=== PATIENT | male | born 1955 | race African-American/Black ===

== ENCOUNTER 2016-03-15 15:03 | Inpatient (IN) ==
--- NOTE | 2016-03-15 16:41 | ED.PDOC ---
General ED Provider: Dr. ALEKSANDER LÓPEZ JR Chief Complaint: Back Pain Stated Complaint: EA-LEFT LOWER BACK PAIN. UNDER RIBS. PAIN INCREASES WITH BREATHING AND COUGH.[ End ]three four days ago 98.7 85 18 97% 137/84 7/10 FEELS THAT SYMPTOMS ARE RELATED TO ELIQUIS FOR BLOOD CLOTS. Time Seen by Physician: 16:37 Mode of Arrival: Walk-In Information Source: Patient Exam Limitations: No limitations [facility] and T[facility] Documentation Reviewed and Agree: No Review of Systems - Review Of Systems Constitutional: Reports: No symptoms Eyes: Reports: No symptoms Ears, Nose, Mouth, Throat: Reports: No symptoms Respiratory: Reports: No symptoms Cardiac: Reports: No symptoms GI: Reports: No symptoms : Reports: Frequency, Flank pain Musculoskeletal: Reports: Back pain Skin: Reports: No symptoms Neurological: Reports: No symptoms Endocrine: Reports: No symptoms Hematologic/Lymphatic: Reports: No symptoms All Other Systems: Other Past Medical History - Past Medical History Previously Healthy: No Endocrine: Reports: None Cardiovascular: Reports: OH, Hypertension, DVT (BILATERAL LEGS) Respiratory: Reports: PE (RIGHT LUNG ), Other (TB, ) Hematological: Reports: None Gastrointestinal: Reports: Pancreatitis (alcoholism) Genitourinary: Reports: None Neuro/Psych: Reports: Migraine Musculoskeletal: Reports: None Cancer: Reports: None Other Pertinent Past Medical History: right hand heart cath without stents blood clot filter - Surgical History General Surgical History: Reports: None, Heart Cath, Orthopedic (right hand ), Other (heart cath without stents, blood clot filter). Denies: Stent - Family History Family History: Reports: None - Social History Smoking Status: Current some day smoker Hx Substance Use: No Alcohol Screening: None - Immunizations Tetanus Shot up to Date: Yes Physical Exam - Physical Exam Appearance: Well-appearing, Thin Pain Distress: Moderate Eyes: MERCED, EOMI, Conjunctiva clear ENT: Ears normal, Nose normal, Oropharynx normal Neck: Supple Respiratory: Airway patent, Breath sounds equal, Respirations nonlabored, Rhonchi Cardiovascular: RRR, Pulses normal, No rub, No murmur GI/: Soft, Nontender, No masses, Bowel sounds normal, No Organomegaly Musculoskeletal: Normal strength, ROM intact, No edema, No calf tenderness Skin: Warm, Dry, Normal color Neurological: Sensation intact, Motor intact, Reflexes intact, Cranial nerves intact, Alert, Oriented Psychiatric: Affect appropriate, Mood appropriate Critical Care Note - Critical Care Note Total Time (mins): 0 Course - Course Hematology/Chemistry: 03/15/16 16:50 03/15/16 16:50 Orders, Labs, Meds: Lab Review 03/15/16 03/15/16 16:50 17:18 WBC 5.62 RBC 3.85 L Hgb 11.0 L Hct 33.5 L MCV 87.0 MCH 28.6 MCHC 32.8 RDW Coeff of Kristine 16.9 H Plt Count 251 Immature Gran % (Auto) 0.2 Neut % (Auto) 55.4 Lymph % (Auto) 30.6 [place] % (Auto) 11.7 H Eos % (Auto) 1.6 Baso % (Auto) 0.5 Immature Gran # (Auto) 0.0 Neut # 3.1 Lymph # 1.7 [place] # 0.7 Eos # 0.1 Baso # 0.0 PT 10.6 INR 1.03 APTT 22.3 L Sodium 139 Potassium 4.0 Chloride 107 Carbon Dioxide 21 Anion Gap 15.0 BUN 15 Creatinine 0.83 Estimated GFR (MDRD) 115.00 BUN/Creatinine Ratio 18.07 Glucose 88 Calcium 9.3 Total Bilirubin 0.55 AST 23 ALT 18 Alkaline Phosphatase 84 Total Protein 7.6 Albumin 3.9 Globulin 3.7 Albumin/Globulin Ratio 1.05 Amylase 1103 H* Lipase 3656 H* Urine Color Yellow Urine Clarity Clear Urine pH 6.0 Ur Specific [place] 1.015 Urine Protein Negative Urine Glucose (UA) Negative Urine Ketones Negative Urine Blood Negative Urine Nitrite Negative Urine Bilirubin Negative Urine Urobilinogen 0.2 Ur Leukocyte Esterase Negative Plasma/Serum Alcohol < 10.0 Orders Category Date Time Status ADMIT PATIENT INPATIENT .TO [facility] (NON-MONITORED ADMISSION 03/15/16 19: 58 Active BED) ACTIVITY .Up ad Shellie CARE 03/15/16 19:58 Active INTAKE & OUTPUT Q8HR CARE 03/15/16 19:58 Active VITAL SIGNS Q8HR CARE 03/15/16 19:58 Active NOTHING BY MOUTH DIETARY 03/15/16 Breakfast Ordered ED IV/MEDIPORT/POWERPORT .ONCE EMERGENCY 03/15/16 16:44 Active IV [ED IV/MEDIPORT/POWERPORT] .ONCE EMERGENCY 03/15/16 16:45 Active AMYLASE Stat LAB 03/15/16 16:50 Completed CBC W/ AUTO DIFF DAILY@0600 LAB 03/16/16 06:00 Ordered CBC W/ AUTO DIFF DAILY@0600 LAB 03/17/16 06:00 Ordered CBC W/ AUTO DIFF DAILY@0600 LAB 03/18/16 06:00 Ordered CBC W/ AUTO DIFF DAILY@0600 LAB 03/19/16 06:00 Ordered CBC W/ AUTO DIFF DAILY@0600 LAB 03/20/16 06:00 Ordered CBC W/ AUTO DIFF DAILY@0600 LAB 03/21/16 06:00 Ordered CBC W/ AUTO DIFF DAILY@0600 LAB 03/22/16 06:00 Ordered CBC W/ AUTO DIFF DAILY@0600 LAB 03/23/16 06:00 Ordered CBC W/ AUTO DIFF DAILY@0600 LAB 03/24/16 06:00 Ordered CBC W/ AUTO DIFF DAILY@0600 LAB 03/25/16 06:00 Ordered CBC W/ AUTO DIFF DAILY@0600 LAB 03/26/16 06:00 Ordered CBC W/ AUTO DIFF DAILY@0600 LAB 03/27/16 06:00 Ordered CBC W/ AUTO DIFF DAILY@0600 LAB 03/28/16 06:00 Ordered CBC W/ AUTO DIFF DAILY@0600 LAB 03/29/16 06:00 Ordered CBC W/ AUTO DIFF DAILY@0600 LAB 03/30/16 06:00 Ordered CBC W/ AUTO DIFF DAILY@0600 LAB 03/31/16 06:00 Ordered CBC W/ AUTO DIFF DAILY@0600 LAB 04/01/16 06:00 Ordered CBC W/ AUTO DIFF DAILY@0600 LAB 04/02/16 06:00 Ordered CBC W/ AUTO DIFF DAILY@0600 LAB 04/03/16 06:00 Ordered CBC W/ AUTO DIFF DAILY@0600 LAB 04/04/16 06:00 Ordered CBC W/ AUTO DIFF Stat LAB 03/15/16 16:50 Completed COMPREHENSIVE METABOLIC PANEL DAILY@0600 LAB 03/16/16 06:00 Ordered COMPREHENSIVE METABOLIC PANEL DAILY@0600 LAB 03/17/16 06:00 Ordered COMPREHENSIVE METABOLIC PANEL DAILY@0600 LAB 03/18/16 06:00 Ordered COMPREHENSIVE METABOLIC PANEL DAILY@0600 LAB 03/19/16 06:00 Ordered COMPREHENSIVE METABOLIC PANEL DAILY@0600 LAB 03/20/16 06:00 Ordered COMPREHENSIVE METABOLIC PANEL DAILY@0600 LAB 03/21/16 06:00 Ordered COMPREHENSIVE METABOLIC PANEL DAILY@0600 LAB 03/22/16 06:00 Ordered COMPREHENSIVE METABOLIC PANEL DAILY@0600 LAB 03/23/16 06:00 Ordered COMPREHENSIVE METABOLIC PANEL DAILY@0600 LAB 03/24/16 06:00 Ordered COMPREHENSIVE METABOLIC PANEL DAILY@0600 LAB 03/25/16 06:00 Ordered COMPREHENSIVE METABOLIC PANEL DAILY@0600 LAB 03/26/16 06:00 Ordered COMPREHENSIVE METABOLIC PANEL DAILY@0600 LAB 03/27/16 06:00 Ordered COMPREHENSIVE METABOLIC PANEL DAILY@0600 LAB 03/28/16 06:00 Ordered COMPREHENSIVE METABOLIC PANEL DAILY@0600 LAB 03/29/16 06:00 Ordered COMPREHENSIVE METABOLIC PANEL DAILY@0600 LAB 03/30/16 06:00 Ordered COMPREHENSIVE METABOLIC PANEL DAILY@0600 LAB 03/31/16 06:00 Ordered COMPREHENSIVE METABOLIC PANEL DAILY@0600 LAB 04/01/16 06:00 Ordered COMPREHENSIVE METABOLIC PANEL DAILY@0600 LAB 04/02/16 06:00 Ordered COMPREHENSIVE METABOLIC PANEL DAILY@0600 LAB 04/03/16 06:00 Ordered COMPREHENSIVE METABOLIC PANEL DAILY@0600 LAB 04/04/16 06:00 Ordered COMPREHENSIVE METABOLIC PANEL Stat LAB 03/15/16 16:50 Completed ETOH LEVEL [BLOOD ALCOHOL] Stat LAB 03/15/16 16:50 Completed LIPASE Stat LAB 03/15/16 16:50 Completed PARTIAL THROMBOPLASTIN TIME Stat LAB 03/15/16 16:50 Completed PT WITH INR Stat LAB 03/15/16 16:50 Completed UA [URINALYSIS C & S IF INDICATED] Stat LAB 03/15/16 17:18 Completed 0.9 % Sodium Chloride [Saline Flush] MEDS 03/15/16 16:44 Active 1 syr IVF PRN PRN Morphine Sulfate [Morphine 2 mg/ml Syringe] MEDS 03/15/16 20:02 Discontinued 2 mg IVP ONCE STA Morphine Sulfate [Morphine 2 mg/ml Syringe] MEDS 03/15/16 20:03 Ordered 2 mg IVP Q4H PRN Sodium Chloride 0.9% [Sodium Chloride] 1,000 ml MEDS 03/15/16 20:00 Ordered IV 100 mls/hr RESUSCITATION STATUS Routine OTHERS 03/15/16 19:[address] ABDOMEN/PELVIS WO CONTRAST Stat RADS 03/15/16 16:[address] CHEST W/O CONTRAST Stat RADS 03/15/16 18:48 Completed Medications Generic Name Dose Route Start Last Admin Trade Name Maynor PRN Reason Stop Dose Admin Apixaban 2.5 mg 03/15/16 21:00 Eliquis PO BID NELL Sodium Chloride 1,000 mls @ 100 mls/hr 03/15/16 20:00 03/15/16 20:15 Sodium Chloride IV 100 mls/hr .Q10H NELL Administration Azithromycin 500 mg/ Sodium 250 mls @ 125 mls/hr 03/15/16 20:30 Chloride IV DAILY NELL Ceftriaxone Sodium 1 gm/ 50 mls @ 75 mls/hr 03/15/16 20:30 Sodium Chloride IV DAILY NELL Ceftriaxone Sodium 1 gm/ 50 mls @ 75 mls/hr 03/15/16 20:26 03/15/16 20:32 Sodium Chloride IV 03/15/16 21:05 75 mls/hr ONCE STA Administration Lisinopril 10 mg 03/16/16 09:00 Zestril PO DAILY [facility] Metoprolol Succinate 25 mg 03/16/16 09:00 Toprol Xl PO DAILY [facility] Morphine Sulfate 2 mg 03/15/16 20:03 Morphine 2 Mg/Ml Syringe IVP Q4H PRN Severe Pain Nitroglycerin 0.4 mg 03/15/16 20:12 Nitrostat SL PRN PRN Chest Pain Non-Formulary Medication 20 mg 03/16/16 09:00 Omeprazole Magnesium [Prilosec] PO DAILY [facility] Sodium Chloride 1 syr 03/15/16 16:44 Saline Flush IVF PRN PRN To flush IV Tiotropium [place] cap 03/16/16 09:00 Spiriva IH DAILY [facility] Discontinued Medications Generic Name Dose Route Start Last Admin Trade Name Maynor PRN Reason Stop Dose Admin Morphine Sulfate 2 mg 03/15/16 20:02 03/15/16 20:20 Morphine 2 Mg/Ml Syringe IVP 03/15/16 20:03 2 mg ONCE STA Administration Vital Signs: Temp Pulse Resp BP Pulse Ox 03/15/16 15:06 98.7 F 85 18 137/84 97 Departure - Departure Time of Disposition: 20:49 Disposition: ADMITTED INPATIENT Discharge Problem: Pneumonia Acute pancreatitis Qualifiers: Pancreatitis type: alcohol induced Acute pancreatitis complication: no infection or necrosis Qualifier Code: (K85.20) Alcohol induced acute pancreatitis without necrosis or infection Condition: Stable Pt referred to PMD for follow-up: Yes Allergies/Adverse Reactions: Allergies Penicillins Adverse Reaction (Severe, Verified 03/15/16 15:15) Anaphylaxis swelling in throat moxifloxacin [From Avelox] Adverse Reaction (Intermediate, Verified 03/15/16 15: 15) Itching ITCHING AT IV SITE Penicillins Adverse Reaction (Severe, Uncoded 03/15/16 15:15) Anaphylaxis swelling in throat Home Medications: Ambulatory Orders Lisinopril 10 mg PO DAILY tab-cap 05/25/15 Tiotropium [place] [Spiriva] 18 mcg IH DAILY #30 av 05/25/15 Omeprazole Magnesium [Prilosec] 20 mg PO DAILY tab-cap 01/13/16 Apixaban [Eliquis] 2.5 mg PO BID #60 tab 02/14/16
[2016-03-15 16:56] LABS: BASOPHILS % (AUTO) 0.5 % (0.0-3.0); EOSINOPHILS # (AUTO) 0.1 K/ul (0.0-0.7); EOSINOPHILS % (AUTO) 1.6 % (0.0-7.0); HEMATOCRIT 33.5 % (42.0-52.0); IMMATURE GRANULOCYTE % (AUTO) 0.2 % (0.0-5.0); LYMPHOCYTES # (AUTO) 1.7 K/uL (0.60-3.4); LYMPHOCYTES % (AUTO) 30.6 (10.0-50.0); MEAN CORPUSCULAR HEMOGLOBIN 28.6 pg (27.0-31.0); MEAN CORPUSCULAR HGB CONC 32.8 (31.8-35.4); MONOCYTES # (AUTO) 0.7 K/uL (0.4-2.0); MONOCYTES % (AUTO) 11.7 (0-10); NEUTROPHILS # (AUTO) 3.1 K/ul (2.0-6.9); NEUTROPHILS % (AUTO) 55.4; PLATELET COUNT 251 10^3/uL (140-440); RED BLOOD COUNT 3.85 10^6/ul (4.70-6.10); WHITE BLOOD COUNT 5.62 K/ul (4.2-10.2)
[2016-03-15 17:23] LABS: ALBUMIN 3.9 g/dL (3.4-5.0); ALBUMIN/GLOBULIN RATIO 1.05; BILIRUBIN,TOTAL 0.55 mg/dL (0.00-1.20); BUN/CREATININE RATIO 18.07; CALCIUM 9.3 mg/dL (8.2-10.2); CREATININE 0.83 mg/dL (0.60-1.10); TOTAL PROTEIN 7.6 g/dL (6.4-8.2)
[2016-03-15 17:33] LABS: BILIRUBIN,URINE Negative (NEGATIVE); KETONES,URINE Negative (NEGATIVE); LEUKOCYTE ESTERASE ,URINE Negative (NEGATIVE); NITRITE,URINE Negative (NEGATIVE); PROTEIN,URINE Negative (NEGATIVE); URINE, BLOOD Negative (NEGATIVE)
[2016-03-15 17:43] LABS: ADD URINE MICROSCOPIC NO
--- NOTE | 2016-03-15 17:48 | CT ---
EXAM: Noncontrast CT examination of the abdomen and pelvis. Comparison: 01/14/2016. Reason for study: Left flank pain. FINDINGS: Patchy ground-glass and atelectasis is seen in the left lung base. The heart is not enla rged. Within the limitations of a noncontrast study, the liver, spleen, adrenal glands, and gallbladder ar e unremarkable. There is a similar appearing calcification in the pancreatic head. Unchanged IVC f ilter. No hydronephrosis, nephrolithiasis, or hydroureter. There are no radiopaque stones seen within the urinary bladder. No focal bowel dilatation or transition point. The appendix is not seen. The prostate is mildly pr ominent. The osseous structures are unremarkable. IMPRESSION: 1. No evidence of urolithiasis. 2. Patchy ground-glass in the left lung base may be early and early infectious or inflammatory proc ess. 3. No acute findings in the abdomen or pelvis.
[2016-03-15 19:01] LABS: PARTIAL THROMBOPLASTIN TIME 22.3 SEC (23.9-40.0); PROTHROMBIN TIME 10.6 SEC (9.3-11.0)
--- NOTE | 2016-03-15 19:32 | CT ---
Examination: Noncontrast CT imaging of the chest with axial, sagittal, and coronal reconstructed im aging with 3-D reformats. Comparison: 01/14/2016. Reason for study: Basilar changes in the left lung. FINDINGS: Left apical consolidation. Emphysematous changes are seen with an apical predominance. T here are new ground-glass and patchy consolidative changes in the left lower lobe best seen on axial images number 49, 50, and 51. Incidentally noted double aortic arch. Old granulomatous disease within the mediastinum and lung pa renchyma. Partially imaged left clavicle suggests prior injury with bony remodeling. Degenerative disease is seen within the thoracic spine with anterior osteophytosis. IMPRESSION: 1. New patchy left lower lobe inflammatory/infiltrative changes. 2. Stable left apical consolidation.
[2016-03-15] MEDS ORDERED: MORPHINE 2 MG/ML SYRINGE IVP STA (20:02)
[2016-03-15] MEDS ORDERED: MORPHINE 2 MG/ML SYRINGE IVP PRN (20:03)
[2016-03-15] MEDS ORDERED: NITROSTAT SL PRN (20:12)
[2016-03-15] MEDS: SODIUM CHLORIDE 1,000 ML IV SCH (20:15)
[2016-03-15] MEDS ORDERED: ROCEPHIN 1 GM in SODIUM CHLORIDE 50 ML IV STA (20:26)
[2016-03-15] MEDS ORDERED: ROCEPHIN ONE (20:28)
[2016-03-15] MEDS ORDERED: ROCEPHIN 1 GM in SODIUM CHLORIDE 50 ML IV SCH (20:30)
[2016-03-15] MEDS ORDERED: ZITHROMAX 500 MG in SODIUM CHLORIDE 250 ML IV SCH (20:30)
[2016-03-15] MEDS: ELIQUIS PO SCH (21:38)
[2016-03-16 05:39] LABS: BASOPHILS % (AUTO) 0.2 % (0.0-3.0); EOSINOPHILS # (AUTO) 0.1 K/ul (0.0-0.7); EOSINOPHILS % (AUTO) 1.9 % (0.0-7.0); HEMATOCRIT 31.8 % (42.0-52.0); HEMOGLOBIN 10.1 g/dl (14.0-18.0); IMMATURE GRANULOCYTE % (AUTO) 0.4 % (0.0-5.0); LYMPHOCYTES # (AUTO) 1.9 K/uL (0.60-3.4); LYMPHOCYTES % (AUTO) 41.2 (10.0-50.0); MEAN CORPUSCULAR HEMOGLOBIN 27.8 pg (27.0-31.0); MEAN CORPUSCULAR HGB CONC 31.8 (31.8-35.4); MEAN CORPUSCULAR VOLUME 87.6 fl (80.0-94.0); MONOCYTES # (AUTO) 0.6 K/uL (0.4-2.0); MONOCYTES % (AUTO) 12.2 (0-10); NEUTROPHILS # (AUTO) 2.1 K/ul (2.0-6.9); NEUTROPHILS % (AUTO) 44.1; PLATELET COUNT 249 10^3/uL (140-440); RED BLOOD COUNT 3.63 10^6/ul (4.70-6.10); WHITE BLOOD COUNT 4.68 K/ul (4.2-10.2)
[2016-03-16 06:00] LABS: ALBUMIN 3.5 g/dL (3.4-5.0); ANION GAP 11.6; BILIRUBIN,TOTAL 0.82 mg/dL (0.00-1.20); BUN/CREATININE RATIO 13.75; CALCIUM 8.7 mg/dL (8.2-10.2); CREATININE 0.8 mg/dL (0.60-1.10); POTASSIUM 3.6 mmol/L (3.5-5.1)
[2016-03-16] MEDS: SODIUM CHLORIDE 1,000 ML IV SCH ×2 (08:26→16:48)
[2016-03-16] MEDS: ELIQUIS PO SCH (08:58)
[2016-03-16] MEDS: SPIRIVA IH SCH (08:59)
[2016-03-16] MEDS: ZESTRIL PO SCH (08:59)
[2016-03-16] MEDS: TOPROL XL PO SCH (08:59)
[2016-03-16] MEDS ORDERED: OMEPRAZOLE MAGNESIUM 20 MG PO SCH (09:00)
[2016-03-16 09:07] LABS: AMYLASE 562 U/L (25-115); LIPASE 1541 U/L (8-78)
[2016-03-16] MEDS: INFUVITE ADULT 10 ML in D5%-1/2NS-KCL 20 MEQ/L IV SOL 1,000 ML IV SCH (10:25)
[2016-03-16] MEDS: COUMADIN PO SCH (16:51)
[2016-03-16] MEDS: ROCEPHIN 1 GM in SODIUM CHLORIDE 50 ML IV SCH (20:26)
[2016-03-16] MEDS: ZITHROMAX 500 MG in SODIUM CHLORIDE 250 ML IV SCH (21:24)
[2016-03-16] MEDS ORDERED: INFUVITE ADULT IV ONE (23:49)
[2016-03-17] MEDS: INFUVITE ADULT 10 ML in D5%-1/2NS-KCL 20 MEQ/L IV SOL 1,000 ML IV SCH ×2 (00:22→12:30)
[2016-03-17 05:30] LABS: AMYLASE 362 U/L (25-115)
[2016-03-17 05:32] LABS: PROTHROMBIN TIME 11.3 SEC (9.3-11.0)
[2016-03-17 05:33] LABS: LIPASE 781 U/L (8-78)
--- NOTE | 2016-03-17 09:03 | HP ---
CHIEF COMPLAINT: Pain left lower lateral chest wall. SOURCE OF HISTORY: Patient. HISTORY OF PRESENT ILLNESS: The patient, about three to four days prior to presentation to the emergency room, did experience pain in the left lower lateral chest wall aggravated by taking a deep breath and coughing. The problem had persisted and so he presented to the emergency room on 03/15/16. A work up was done at the emergency room consisting of CBC and chemistry, plus Amylase and Lipase. He also had a chest CT, as well as abdominal and pelvic CT without contrast. The patient's labs showed a elevated Amylase 1,103 and Lipase 3,656. Chest CT showed stable left apical consolidation and a new patchy consolidation left lower lobe. The patient was admitted with a diagnosis of left lower lobe pneumonitis and pancreatitis. This patient denied drinking any alcoholic beverages at all since I last saw him. PAST PERSONAL HISTORY: The patient claimed to have had a myocardial infarction in 1984 and had another subsequent UT while he was in [place]. History of blood clots in both legs in 1979. He had a cardiac catheterization in 1987. The patient had a pulmonary emboli about three years ago an umbrella was inserted in [place]. He had a left upper lobe consolidation and with cavitation , questionable tuberculosis. The patient was referred to a camera supervisor in [place] and decided that the problem was fungal rather than tubercular. The patient had been placed on antifungal medication. The patient is no longer taking the medication now. He also had a history of pneumonia in 2011. He had intestinal bleeding 2007 and history of pancreatitis in the past and also alcoholic use and abuse. He had a colonoscopy 2014. He had surgery to the right hand years ago from injury. This patient is still smoking, but denies drinking any alcohol although he used to consume alcohol every day. He also claims to have some anxiety episodes. FAMILY HISTORY: Denies any diseases in the family that are hereditary. He could not remember anything about illness in parents and relatives. SOCIAL HISTORY: The patient is and resides with his . He is unemployed. He smokes every day and denies any alcoholic use lately. This patient used to drink almost everyday. MEDICATIONS: Prior to this admission. Toprol XL 25 mg daily Spiriva one inhalation daily Lisinopril 10 mg daily Nitroglycerin 0.4 mg sublingually prn Omeprazole 20 mg daily Eliquis 2.5 mg twice a day ALLERGIES: Penicillin, Moxifloxacin. REVIEW OF SYSTEMS: CONSTITUTIONAL: The patient denied any fever or chills. He complains of some fatigue. 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 No ataxia. Had headaches before and workups were negative including a CT scan of the head. VISUAL: Denies any blurred vision, double vision or transient loss of vision. AUDITORY: Hearing is adequate. He denies any tinnitus, pain or drainage. RESPIRATORY: The patient has cough, probably from smoking and pain more on the left lower lateral chest upon taking deep breaths. No hemoptysis. History of consolidation, plus cavitation left upper lobe judged to be fungal by a camera supervisor. CARDIOVASCULAR: He denies any chest pain or chest oppression. GASTROINTESTINAL: The patient has nausea with eating. He had gained some weight , however compared to February 13, 2016. He is now 116 from 109. GENITOURINARY: Denies any pain, frequency or urgency of urination. MUSCULOSKELETAL: Pain in the left lateral chest wall aggravated by coughing and deep breathing. INTEGUMENT: Denies any rash or pruritus. ENDOCRINE: Negative. HEMATOLOGIC: Denies any prolonged bleeding episodes. PSYCHIATRIC: Affect is okay. PHYSICAL EXAMINATION: GENERAL: We have a 60 year old black male admitted to the hospital with pain in the left lower lateral chest wall with pneumonic process at the left lower base and markedly elevated serum Amylase and Lipase. VITAL SIGNS: Temperature 98.7, pulse rate 85, blood pressure 137/84, respiratory rate 18 and oxygen saturation at 97. HEAD: Unremarkable. FACE: Symmetrical and equal with no facial weakness and no remarkable tenderness to palpation in the frontal or maxillary sinus areas. EYES: Pupils equal/reactive to light about 3 mm in size. Conjunctivae somewhat pale. Sclerae not icteric. THROAT: No inflammation, no tumors or exudate. NECK: No masses. No bruit. No tenderness. No rigidity. CHEST: Essentially symmetrical and equal with good expansion with tenderness in the left lateral lower chest wall. No crepitus. LUNGS: Breath sounds are diminished in both sides with rales at the left lower base. No wheezing. HEART: Audible and regular with good tones. No murmurs. ABDOMEN: Flat, soft with no remarkable tenderness. No guarding. Bowel sounds are active. No masses palpable. EXTERNAL GENITALIA: Not examined. RECTAL: Not performed. The patient had colonoscopy 2014. LOWER EXTREMITIES: Essentially symmetrical and equal with no significant edema. Tibial pulses are present. UPPER EXTREMITIES: Symmetrical and equal. ASSESSMENT: 1. LEFT LOWER LOBE PNEUMONITIS 2. PANCREATITIS, CHRONIC WITH SUPERIMPOSED ACUTE 3. HISTORY OF PANSINUSITIS, IMPROVED 4. HISTORY OF DEEP VEIN THROMBOSIS YEARS AGO 5. HISTORY OF PULMONARY EMBOLI, PLUS DEEP VEIN THROMBOSIS TREATED WITH INFERIOR VENA CAVA UMBRELLA 6. HISTORY OF MYOCARDIAL INFARCTION TIMES TWO 7. HISTORY OF LEFT UPPER LOBE CONSOLIDATION, CAVITATION/FUNGAL 8. HISTORY OF CHRONIC TOBACCO USE AND ABUSE, PERSISTENT 9. HISTORY OF CHRONIC ALCOHOL USE, BUT DENIES USING IT LATELY 10. HISTORY OF NONCOMPLIANCE TO MEDICATION PROGNOSIS: Guarded. MTDD
--- NOTE | 2016-03-17 09:12 | PN ---
DATE OF VISIT: 03/16/16 The patient is alert and doing well, but still has pain in the left lower lateral chest wall. He does have some rales at the left base. The serum Amylase and Lipase has decreased from where it was yesterday. He still is NPO. VITAL SIGNS: 03/16/16 at 2 p.m., temperature 97.9, pulse 65, blood pressure 142 /86, respiratory rate 20, oxygen saturation 97 on room air. The CBC and CMP series was discontinued. Serum Amylase and Lipase is ordered for tomorrow. This patient is receiving Rocephin, as well as Azithromycin IV daily. He claims to still have problems with Eliquis and so the medication at 200 mg twice a day was discontinued and the patient is again placed on Warfarin. There is a question, however, whether this patient needs them since he had an umbrella that was inserted some three years ago. 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 We will do Doppler studies to see if he has any and if not his anticoagulant medication will be discontinued. MTDYuliya
[2016-03-17] MEDS: ZESTRIL PO SCH (09:20)
[2016-03-17] MEDS: TOPROL XL PO SCH (09:20)
[2016-03-17] MEDS: SPIRIVA IH SCH (09:25)
--- NOTE | 2016-03-17 10:06 | US ---
EXAM: Ultrasound venous Doppler bilateral lower extremity HISTORY: Bilateral leg pain COMPARISON: 01/18/2016 TECHNIQUE: Ultrasound venous Doppler bilateral lower extremity was performed FINDINGS: Right: There is partial flow and partial compressibility in the right profunda femoral vein and sup erficial femoral vein. There is normal compressibility and spontaneous flow in the right common fem oral, greater saphenous, popliteal, peroneal, posterior tibial and anterior tibial veins. Left: There is partial compressibility and partial spontaneous flow in the left common femoral, gre ater saphenous, superficial femoral, profunda femoral, popliteal, and peroneal veins and no spontane ous flow or compression in the left superficial femoral vein. Patient has chronic deep venous thromb us with portions appearing increased and/or new and representing acute on chronic venous thrombus. T here is spontaneous flow and compression of the left posterior tibial vein. Left anterior tibial ve in not visualized. IMPRESSION: 1. Right: Acute deep venous thrombus. 2. Left: Acute on chronic deep venous thrombus Critical findings called to patient nurse 10:00 a.m. 03/17/2016
--- NOTE | 2016-03-17 15:21 | CT ---
EXAM: CT of the chest. History: Chest pain. Comparison: Chest CT 03/15/2016 Technique: Multiplanar CT images through the thorax were obtained following administration of IV co ntrast. MIP images and 3-D reconstructions were also acquired. Findings: Heart size is normal. Double aortic arch again identified. No pericardial effusion. No pathologically enlarged axillary lymph nodes. No pathologically enlarged mediastinal or hilar lymp h nodes. No acute pulmonary emboli. The appearance of a small filling defect within the distal rig ht main pulmonary artery is felt to represent a branch point artifact. There is some narrowing of th e proximal left lower lobe pulmonary artery due to the mucus plugging. Emphysema again noted. Stable focal infiltrate or scarring within the left lung apex. No pneumoth orax. Diffuse bronchial wall thickening and left greater than right lower lobe mucous plugging. In creasing nodular infiltrate within the left lower lobe. Trace bilateral pleural effusions. Within the visualized upper abdomen, stable calcification within the pancreatic head region. Stable prominent pancreatic duct. No acute osseous abnormalities. Impression: 1. No acute pulmonary embolism. 2. Bilateral lower lobe mucous plugging has developed and there is worsening nodular left lower lob e lung infiltrate. 3. Trace bilateral pleural effusions. 4. Double aortic arch.
[2016-03-17] MEDS: MUCINEX PO SCH ×2 (17:22→20:34)
[2016-03-17] MEDS: COUMADIN PO SCH (17:22)
[2016-03-17] MEDS: ROCEPHIN 1 GM in SODIUM CHLORIDE 50 ML IV SCH (20:34)
[2016-03-17] MEDS: ZITHROMAX 500 MG in SODIUM CHLORIDE 250 ML IV SCH (21:38)
[2016-03-18] MEDS ORDERED: INFUVITE ADULT IV ONE (04:04)
[2016-03-18] MEDS: INFUVITE ADULT 10 ML in D5%-1/2NS-KCL 20 MEQ/L IV SOL 1,000 ML IV SCH ×3 (04:11→16:42)
[2016-03-18 06:47] LABS: PROTHROMBIN TIME 11.3 SEC (9.3-11.0)
[2016-03-18 07:39] LABS: BASOPHILS % (AUTO) 0.5 % (0.0-3.0); EOSINOPHILS # (AUTO) 0.1 K/ul (0.0-0.7); EOSINOPHILS % (AUTO) 2.6 % (0.0-7.0); HEMATOCRIT 30.9 % (42.0-52.0); HEMOGLOBIN 10.2 g/dl (14.0-18.0); LYMPHOCYTES # (AUTO) 1.4 K/uL (0.60-3.4); LYMPHOCYTES % (AUTO) 34.7 (10.0-50.0); MEAN CORPUSCULAR HEMOGLOBIN 28.8 pg (27.0-31.0); MEAN CORPUSCULAR VOLUME 87.3 fl (80.0-94.0); MONOCYTES # (AUTO) 0.5 K/uL (0.4-2.0); MONOCYTES % (AUTO) 13.6 (0-10); NEUTROPHILS # (AUTO) 1.9 K/ul (2.0-6.9); NEUTROPHILS % (AUTO) 48.6; PLATELET COUNT 229 10^3/uL (140-440); RED BLOOD COUNT 3.54 10^6/ul (4.70-6.10); WHITE BLOOD COUNT 3.89 K/ul (4.2-10.2)
[2016-03-18 07:59] LABS: ALBUMIN 3.5 g/dL (3.4-5.0); ALBUMIN/GLOBULIN RATIO 1.03; ANION GAP 11.7; BILIRUBIN,TOTAL 0.4 mg/dL (0.00-1.20); BUN/CREATININE RATIO 6.75; CREATININE 0.74 mg/dL (0.60-1.10); POTASSIUM 3.7 mmol/L (3.5-5.1); TOTAL PROTEIN 6.9 g/dL (6.4-8.2)
[2016-03-18] MEDS: TOPROL XL PO SCH (09:01)
[2016-03-18] MEDS: MUCINEX PO SCH ×2 (09:01→20:03)
[2016-03-18] MEDS: ZESTRIL PO SCH (09:02)
[2016-03-18] MEDS: SPIRIVA IH SCH (09:02)
[2016-03-18] MEDS: COUMADIN PO SCH (16:44)
[2016-03-18] MEDS: ROCEPHIN 1 GM in SODIUM CHLORIDE 50 ML IV SCH (20:01)
[2016-03-18] MEDS: ZITHROMAX 500 MG in SODIUM CHLORIDE 250 ML IV SCH (21:13)
[2016-03-19 05:06] LABS: PROTHROMBIN TIME 12.9 SEC (9.3-11.0)
[2016-03-19] MEDS: MUCINEX PO SCH ×2 (08:47→20:00)
[2016-03-19] MEDS: SPIRIVA IH SCH (08:48)
[2016-03-19] MEDS: TOPROL XL PO SCH (08:48)
[2016-03-19] MEDS: ZESTRIL PO SCH (08:48)
[2016-03-19 14:57] LABS: AMYLASE 351 U/L (25-115)
[2016-03-19 15:07] LABS: LIPASE 799 U/L (8-78)
[2016-03-19] MEDS: COUMADIN PO SCH (16:28)
[2016-03-19] MEDS: ROCEPHIN 1 GM in SODIUM CHLORIDE 50 ML IV SCH (20:01)
[2016-03-19] MEDS: ZITHROMAX 500 MG in SODIUM CHLORIDE 250 ML IV SCH (20:55)
[2016-03-20 05:30] LABS: PROTHROMBIN TIME 14.9 SEC (9.3-11.0)
[2016-03-20 05:41] LABS: ALBUMIN 3.5 g/dL (3.4-5.0); ALBUMIN/GLOBULIN RATIO 0.97; ANION GAP 13.6; BILIRUBIN,TOTAL 0.79 mg/dL (0.00-1.20); BUN/CREATININE RATIO 10.81; CALCIUM 9.2 mg/dL (8.2-10.2); CREATININE 0.74 mg/dL (0.60-1.10); POTASSIUM 3.6 mmol/L (3.5-5.1); TOTAL PROTEIN 7.1 g/dL (6.4-8.2)
--- NOTE | 2016-03-20 08:40 | PN ---
DATE OF VISIT: 03/19/16 SUBJECTIVE: The alert, responsive, not dyspneic or tachypneic. His also confirmed that he is not drinking any alcoholic beverages. His step-son also told me that he is not drinking. He is still smoking. I did talk to them because they were in the room with the patient. I did tell him that he does have pneumonia and also blood clot in the legs but not in the lungs. He had a filter inserted in [place] and he told me it was more than 20 years ago instead of 3-4 years ago. I need to ask for the records and I hope they are still available to at least make certain that indeed it was inserted and when. The patient's Serum Lipase had slightly elevated from 781 to 799 when he was given a regular diet. Diet was changed to low fat and full liquid diet instead of regular. The amylase had gone down further from the other day at 362 now 351. This will again be measure tomorrow. VITAL SIGNS: Temperature 97.9, pulse 97, blood pressure 134/93, respiratory rate 20, oxygen saturation 98% at room air. PLAN: This patient will be referred to Dr. Cespedes with regards to the recurrent pancreatitis. The pancreas does not show any calcifications with the CT Scan. This patient has a hypercoagulable state showing persistent or recurrent DVT's. It is probably necessary or advisable to continue him on Coumadin even if he does not get to therapeutic levels most of the time. IKERD
[2016-03-20] MEDS: SPIRIVA IH SCH (08:57)
[2016-03-20] MEDS: TOPROL XL PO SCH (08:58)
[2016-03-20] MEDS: MUCINEX PO SCH ×2 (08:58→20:43)
[2016-03-20] MEDS: ZESTRIL PO SCH (08:58)
--- NOTE | 2016-03-20 09:08 | PN ---
DATE OF VISIT: 03/17/16 SUBJECTIVE: The patient today is alert, feeling better. The patient's Doppler studies showed blood clots in both lower extremities. I did go back to the previous Dopplers and indeed he has blood clots mostly on the left side. He also had inferior vena cava filter inserted some time ago. The patient had pain in the left lateral chest with consolidation. A CT scan of the chest with contrast was then done to see whether this consolidation is a pulmonary emboli. A CTA was negative for pulmonary emboli. Bilateral lower lobe mucus plugging has developed and there is worsening nodular left lower lobe lung infiltrate. PLAN: The patient is given Mucinex 1200 mg twice a day and encouraged to drink as much liquid as he can and the IV will be continued to hydrate him. MTDD
[2016-03-20] MEDS: COUMADIN PO SCH (17:30)
[2016-03-20 19:08] LABS: CHLAMYDIA PNEUMONIAE IGG <1:16 (Neg:<1:16); CHLAMYDIA PNEUMONIAE IGM <1:10 (Neg:<1:10)
[2016-03-20] MEDS ORDERED: ROCEPHIN 1 GM in SODIUM CHLORIDE 100 ML IV SCH (21:00)
[2016-03-20] MEDS: ZITHROMAX 500 MG in SODIUM CHLORIDE 250 ML IV SCH (22:01)
[2016-03-21 04:53] LABS: PROTHROMBIN TIME 16.2 SEC (9.3-11.0)
[2016-03-21 05:08] LABS: AMYLASE 254 U/L (25-115); LIPASE 579 U/L (8-78)
[2016-03-21] MEDS: SPIRIVA IH SCH (08:01)
[2016-03-21] MEDS: MUCINEX PO SCH ×2 (08:02→20:11)
[2016-03-21] MEDS: ZESTRIL PO SCH (08:02)
[2016-03-21] MEDS: TOPROL XL PO SCH (08:02)
--- NOTE | 2016-03-21 17:01 | DI ---
EXAM: PA and lateral views of the chest HISTORY: Follow up pneumonia COMPARISON: CT chest 03/17/2016 FINDINGS: The cardiomediastinal silhouette is normal. There is no pneumothorax or pleural effusion . There is no consolidation, nodule or mass. The osseous structures are unremarkable. IMPRESSION: No acute cardiopulmonary process
[2016-03-21] MEDS: COUMADIN PO SCH (17:06)
[2016-03-21] MEDS ORDERED: ROCEPHIN 1 GM in SODIUM CHLORIDE 50 ML IV SCH (21:00)
[2016-03-22 05:07] LABS: BASOPHILS % (AUTO) 0.8 % (0.0-3.0); EOSINOPHILS # (AUTO) 0.2 K/ul (0.0-0.7); EOSINOPHILS % (AUTO) 3.2 % (0.0-7.0); HEMATOCRIT 32.2 % (42.0-52.0); HEMOGLOBIN 10.3 g/dl (14.0-18.0); IMMATURE GRANULOCYTE % (AUTO) 0.4 % (0.0-5.0); LYMPHOCYTES # (AUTO) 1.6 K/uL (0.60-3.4); LYMPHOCYTES % (AUTO) 33.3 (10.0-50.0); MEAN CORPUSCULAR HEMOGLOBIN 28.2 pg (27.0-31.0); MEAN CORPUSCULAR VOLUME 88.2 fl (80.0-94.0); MONOCYTES # (AUTO) 0.7 K/uL (0.4-2.0); MONOCYTES % (AUTO) 13.9 (0-10); NEUTROPHILS # (AUTO) 2.3 K/ul (2.0-6.9); NEUTROPHILS % (AUTO) 48.4; PLATELET COUNT 260 10^3/uL (140-440); RED BLOOD COUNT 3.65 10^6/ul (4.70-6.10); WHITE BLOOD COUNT 4.74 K/ul (4.2-10.2)
[2016-03-22 05:17] LABS: PROTHROMBIN TIME 16.9 SEC (9.3-11.0)
[2016-03-22 05:37] LABS: ALBUMIN 3.5 g/dL (3.4-5.0); ALBUMIN/GLOBULIN RATIO 0.95; ANION GAP 12.3; BILIRUBIN,TOTAL 0.16 mg/dL (0.00-1.20); CALCIUM 9.5 mg/dL (8.2-10.2); CREATININE 0.75 mg/dL (0.60-1.10); POTASSIUM 4.3 mmol/L (3.5-5.1); TOTAL PROTEIN 7.2 g/dL (6.4-8.2)
[2016-03-22] MEDS: SPIRIVA IH SCH (08:13)
[2016-03-22] MEDS: TOPROL XL PO SCH (08:13)
[2016-03-22] MEDS: ZESTRIL PO SCH (08:13)
[2016-03-22] MEDS: MUCINEX PO SCH (08:14)
--- NOTE | 2016-03-22 09:51 | PN ---
DATE OF VISIT: 03/21/16 SUBJECTIVE: The patient is alert, feeling well. He claimed that his appetite is good and denies any headache or any chest pain. He also does not have any shortness of breath and no pain in either leg. The pain in the left lateral chest is much less. OBJECTIVE: LUNGS: Lungs sounds are coarse, breath sounds on both sides; sounds like a rumble. No rales at all. No wheezing. HEART: Normal sinus rhythm. ABDOMEN: Nontender and flat. LOWER EXTREMITIES: No tenderness in the calf muscles. This patient is known to have DVT. PLAN: In the future, this patient may need to have an MRI in the direct spot to see if there is any DVT mostly with recurrent ones. Another modality would be CTA venous system. IKERD
[2016-03-22 14:23] VITALS: BP 129/82; TEMP 97.3
--- NOTE | 2016-03-24 10:56 | DS ---
PATIENT IDENTIFICATION: 60 year old black male who presented to the emergency because of pain in the left lateral chest of four days duration. The pain was aggravated by taking a deep breath or coughing. Work-up showed elevated Amylase and Lipase 1,103 [address] of the chest showed left lower lobe pneumonitis. This patient was then admitted. HOSPITAL COURSE: The patient's work-up consisted of sputum culture, which showed normal corry, gram stain gram positive cocci. Blood cultures negative after five days times two. Repeat CT of the chest 03/17/16 with contrast to rule out pulmonary emboli and was negative for any PE. This patient has an umbrella inserted some 20 years ago. This patient had bilateral DVT. There was worsening of the left lower lobe pneumonitis. A CBC showed moderate anemia on 03/22/16. INR still subtherapeutic at 1.64 on 03/22/16. Amylase at 345, lipase 834, higher than yesterday. The Amylase and Lipase seems to increase with a good amount of food intake. The patient's appetite had been improved and he was consuming 100% of the meals most of the time. The patient had been afebrile for several days and the blood pressure had fluctuated between controlled to slightly elevated. The patient's vital signs at discharge at 2 p.m. showed a temperature of 97.3, pulse 93, blood pressure 129/82, respiratory rate 18. oxygen saturation 99 at room air. Chest x-ray showed no acute cardiopulmonary process. The patient at the time of discharge was alert, ambulatory with movement of all extremities. LUNGS: Diminished breath sounds, but no rales or wheezing. HEART: Audible with good tones. ABDOMEN: Nontender. This patient had received Rocephin 1 gram daily until discharge and Azithromax 500 mg daily for several days. No antibiotics will be continued on discharge. This patient is to resume his previous medications consisting of Toprol XL 25 mg daily, Spiriva 18 mcg daily, Lisinopril 10 mg daily, Nitroglycerin prn, Prilosec 20 mg daily and Coumadin 5 mg daily instead of 7.5. The Eliquis is not reinstituted, since the patient claims that he has some problems with the medication. He is prescribed Creon 6.000/19,000 Units per capsule, one capsule with each meal and also with snack. This patient was instructed specifically never to drink any alcohol and also strongly advised to stop smoking because of his lung problems. I will see him in about a week at the office and before if with any problems. FINAL DIAGNOSES: 1. LEFT LOWER LOBE PNEUMONITIS, IMPROVED 2. CHRONIC PANCREATITIS WITH RECURRENT EXACERBATION 3. HISTORY OF CHRONIC TOBACCO USE AND ABUSE 4. HISTORY OF CHRONIC ALCOHOL USE AND ABUSE 5. LEFT UPPER LOBE CAVITATION JUDGED TO BE FUNGAL BY THE WAGON W[employer]ER. THIS PATIENT WAS ADVISED TO GET IN TOUCH WITH [facility] WITH REGARDS TO THE ITRACONAZOLE THAT HE HAD BEEN TAKING. DAIJA
--- NOTE | 2016-06-01 08:59 | PN ---
DATE OF VISIT: 03/18/16 The patient, today, is alert, cooperative and looking better. He is smiling. He has no dyspnea, nor tachypnea. VITAL SIGNS: 1:37 p.m. showed a temperature of 97.2, pulse 64, blood pressure 139/95, respiratory rate 16, oxygen saturation 95 at room air. He is eating 100 % of his meals. LABS: His CBC today showed moderate anemia and the serum amylase and lipase is decreasing, but not normal. LUNGS: Breath sounds are heard in both sides, somewhat diminished with a few rales at the left base. No wheezing. HEART: Audible with good tones and regular. ABDOMEN: Flat, soft with no remarkable tenderness. No masses palpable. Bowel sounds are active. LOWER EXTREMITIES: No tenderness in the calf muscles. Tibial pulses were present on admission. MTDD
--- NOTE | 2016-06-01 09:07 | PN ---
DATE OF VISIT: 03/20/16 The patient is alert and cheerful. Not dyspneic, nor tachypneic. VITAL SIGNS: At 2:00 p.m. showed a temperature 97.7, pulse 88, blood pressure 142/86, respiratory rate 20, oxygen saturation 98 at room air. LUNGS: He still has a few rales at the left base. This patient had problems with cavitation and treated by a packing shed supervisor in [place]. HEART: Normal sinus rhythm. ABDOMEN: Nontender. No CBC today, but the patient had chemistry. His ProTime is normal. The amylase is down to 317 and lipase down to 647. GFR is 131. The patient is stable. This patient claimed that he had not been drinking alcohol. I do think that this patient may have a chronic pancreatitis showing persistent elevation of lipase and amylase. The amylase on admission was 1103 and lipase was 3656. The Procalcitonin on admission was normal at 0.05. Prognosis of this patient is guarded. I hope he doesn't resume drinking. DAIJA
== END 2016-03-22 16:50 | disposition home or self-care (01) | DRG 438 ==
LOC: ED 15:03 → MEDSURG B 20:05
PROVIDERS: ADMIT General Practice; ATTEND General Practice
DX: K86.1 Other chronic pancreatitis (principal); J18.9 Pneumonia, unspecified organism; I82.412 Acute embolism and thrombosis of left femoral vein; I82.492 Acute embolism and thrombosis of other specified deep vein of left lower extremity; K85.20 Alcohol induced acute pancreatitis without necrosis or infection; J98.4 Other disorders of lung; B48.8 Other specified mycoses; Q25.45 Double aortic arch; F17.210 Nicotine dependence, cigarettes, uncomplicated; F10.20 Alcohol dependence, uncomplicated; I10 Essential (primary) hypertension; I25.2 Old myocardial infarction; Z86.718 Personal history of other venous thrombosis and embolism; Z79.01 Long term (current) use of anticoagulants; Z79.899 Other long term (current) drug therapy
CPT/HCPCS: 36415; 80053; 80307; 81001; 82150; 83690; 84145; 85025; 85379; 85610; 85730; 86631; 86632; 86644; 86645; 86663; 86664; 86710; 86738; 87040; 87070; 87205; 93005; 93010; 96365; 97802; 99223; 99232; 99239; 99284

== ENCOUNTER 2016-03-24 10:27 | Outpatient (CLI) ==
[2016-03-24 11:29] LABS: PROTHROMBIN TIME 17.9 SEC (9.3-11.0)
== END 2016-03-24 10:28 | disposition home or self-care (01) ==
LOC: LAB 10:27
PROVIDERS: ATTEND General Practice
DX: I82.409 Acute embolism and thrombosis of unspecified deep veins of unspecified lower extremity (principal)
CPT/HCPCS: 36415; 85610

== ENCOUNTER 2016-03-25 09:20 | Outpatient (CLI) ==
[2016-03-25 09:59] LABS: PROTHROMBIN TIME 16.1 SEC (9.3-11.0)
[2016-03-25 17:08] LABS: AMYLASE 735 U/L (25-115)
[2016-03-25 17:10] LABS: LIPASE 1773 U/L (8-78)
== END 2016-03-25 09:21 | disposition home or self-care (01) ==
LOC: LAB 09:20
PROVIDERS: ATTEND General Practice
DX: I82.409 Acute embolism and thrombosis of unspecified deep veins of unspecified lower extremity (principal)
CPT/HCPCS: 36415; 82150; 83690; 85610

== ENCOUNTER 2016-03-31 08:57 | Outpatient (CLI) ==
[2016-03-31 09:38] LABS: PROTHROMBIN TIME 18.9 SEC (9.3-11.0)
[2016-03-31 10:30] LABS: AMYLASE 531 U/L (25-115)
[2016-03-31 10:31] LABS: LIPASE 1285 U/L (8-78)
== END 2016-03-31 08:58 | disposition home or self-care (01) ==
LOC: LAB 08:57
PROVIDERS: ATTEND General Practice
DX: I82.A2 Chronic embolism and thrombosis of axillary vein (principal); K85.90 Acute pancreatitis without necrosis or infection, unspecified
CPT/HCPCS: 36415; 82150; 83690; 85610

== ENCOUNTER 2016-04-24 10:21 | Outpatient (CLI) ==
[2016-04-24 10:43] LABS: PROTHROMBIN TIME 20.7 SEC (9.3-11.0)
[2016-04-24 11:11] LABS: AMYLASE 456 U/L (25-115)
[2016-04-24 11:12] LABS: LIPASE 1145 U/L (8-78)
== END 2016-04-24 10:22 | disposition home or self-care (01) ==
LOC: LAB 10:21
PROVIDERS: ATTEND General Practice
DX: K85.90 Acute pancreatitis without necrosis or infection, unspecified (principal); I82.532 Chronic embolism and thrombosis of left popliteal vein; I82.A2 Chronic embolism and thrombosis of axillary vein
CPT/HCPCS: 36415; 82150; 83690; 85610

== ENCOUNTER 2016-05-09 10:51 | Outpatient (CLI) ==
[2016-05-09 11:18] LABS: PROTHROMBIN TIME 24.9 SEC (9.3-11.0)
[2016-05-09 12:16] LABS: AMYLASE 511 U/L (25-115)
[2016-05-09 12:17] LABS: LIPASE 1382 U/L (8-78)
== END 2016-05-09 10:52 | disposition home or self-care (01) ==
LOC: LAB 10:51
PROVIDERS: ATTEND General Practice
DX: K85.90 Acute pancreatitis without necrosis or infection, unspecified (principal); I82.A2 Chronic embolism and thrombosis of axillary vein
CPT/HCPCS: 36415; 82150; 83690; 85610

== ENCOUNTER 2016-05-23 10:39 | Outpatient (CLI) ==
[2016-05-23 11:38] LABS: ALBUMIN 4.1 g/dL (3.4-5.0); BILIRUBIN,DIRECT 0.19 mg/dL (0.00-0.30); BILIRUBIN,TOTAL 0.52 mg/dL (0.00-1.20); TOTAL PROTEIN 8.2 g/dL (6.4-8.2)
== END 2016-05-23 10:40 | disposition home or self-care (01) ==
LOC: LAB 10:39
PROVIDERS: ATTEND General Practice
DX: K85.90 Acute pancreatitis without necrosis or infection, unspecified (principal); F10.20 Alcohol dependence, uncomplicated
CPT/HCPCS: 36415; 80076; 82150; 83690

== ENCOUNTER 2016-06-05 10:15 | Outpatient (CLI) ==
[2016-06-05 10:50] LABS: PROTHROMBIN TIME 13.5 SEC (9.3-11.0)
== END 2016-06-05 10:16 | disposition home or self-care (01) ==
LOC: LAB 10:15
PROVIDERS: ATTEND General Practice
DX: I82.409 Acute embolism and thrombosis of unspecified deep veins of unspecified lower extremity (principal)
CPT/HCPCS: 36415; 85610

== ENCOUNTER 2016-07-05 09:00 | Outpatient (CLI) ==
[2016-07-05 09:54] LABS: AMYLASE 271 U/L (25-115); LIPASE 551 U/L (8-78)
== END 2016-07-05 09:01 | disposition home or self-care (01) ==
LOC: LAB 09:00
PROVIDERS: ATTEND General Practice
DX: I82.409 Acute embolism and thrombosis of unspecified deep veins of unspecified lower extremity (principal); K85.90 Acute pancreatitis without necrosis or infection, unspecified
CPT/HCPCS: 36415; 82150; 83690; 85610

== ENCOUNTER 2016-07-10 09:57 | Outpatient (CLI) ==
[2016-07-10 12:51] LABS: PROTHROMBIN TIME 11.3 SEC (9.3-11.0)
[2016-07-10 13:07] LABS: AMYLASE 426 U/L (25-115); LIPASE 931 U/L (8-78)
== END 2016-07-10 09:58 | disposition home or self-care (01) ==
LOC: LAB 09:57
PROVIDERS: ATTEND General Practice
DX: K85.90 Acute pancreatitis without necrosis or infection, unspecified (principal); I82.419 Acute embolism and thrombosis of unspecified femoral vein; I82.532 Chronic embolism and thrombosis of left popliteal vein
CPT/HCPCS: 36415; 82150; 83690; 85610

== ENCOUNTER 2016-07-17 11:00 | Outpatient (CLI) ==
--- NOTE | 2016-07-17 12:17 | CT ---
EXAM: CT chest without contrast HISTORY: Chest pain and left lower rib pain COMPARISON: CT chest 03/17/2016 and 12/22/2015 TECHNIQUE: Serial axial images of the chest were obtained from the lung apices to the upper abdomen without contrast. These were viewed in multiple planes. FINDINGS: The thyroid is normal. The visualized vessels demonstrate a double aortic arch which is unchanged. The heart is normal in size without pericardial effusion. There are no pathologically e nlarged mediastinal or hilar lymph nodes. There is no pneumothorax or pleural effusion. There is scattered emphysematous disease. Left apica l pleural thickening is present. There is no acute consolidation, nodule or mass. The airways are patent. The left lower lobe mucous plugging has resolved. Soft tissues in the upper abdomen demonstrate an IVC filter. There is a large calcification in the pancreatic head with a enlarged pancreatic duct. This is unchanged since prior exam. The osseous s tructures demonstrate mild degenerative disease of the spine. IMPRESSION: 1. No acute cardiopulmonary process with interval resolution of lower lobe mucous plugging. 2. Stable mild emphysema with unchanged double aortic arch. 3. Stable calcification in the pancreatic head with an large pancreatic duct. If further evaluatio n is clinically indicated, MRCP may be obtained.
[2016-07-17 16:08] LABS: PROTHROMBIN TIME 15.2 SEC (9.3-11.0)
== END 2016-07-17 11:01 | disposition home or self-care (01) ==
LOC: RAD 11:00
PROVIDERS: ATTEND General Practice
DX: R10.9 Unspecified abdominal pain (principal); R91.1 Solitary pulmonary nodule; Z51.81 Encounter for therapeutic drug level monitoring; Z79.01 Long term (current) use of anticoagulants
CPT/HCPCS: 36415; 85610

== ENCOUNTER 2016-07-19 10:23 | Outpatient (CLI) ==
[2016-07-19 11:30] LABS: PROTHROMBIN TIME 19.6 SEC (9.3-11.0)
== END 2016-07-19 10:24 | disposition home or self-care (01) ==
LOC: LAB 10:23
PROVIDERS: ATTEND General Practice
DX: I82.409 Acute embolism and thrombosis of unspecified deep veins of unspecified lower extremity (principal); K85.90 Acute pancreatitis without necrosis or infection, unspecified
CPT/HCPCS: 36415; 85610

== ENCOUNTER 2016-07-25 10:14 | Outpatient (CLI) ==
[2016-07-25 12:52] LABS: PROTHROMBIN TIME 19.9 SEC (9.3-11.0)
== END 2016-07-25 10:15 | disposition home or self-care (01) ==
LOC: LAB 10:14
PROVIDERS: ATTEND General Practice
DX: I82.409 Acute embolism and thrombosis of unspecified deep veins of unspecified lower extremity (principal); K85.90 Acute pancreatitis without necrosis or infection, unspecified
CPT/HCPCS: 36415; 85610

== ENCOUNTER 2016-09-01 10:18 | Outpatient (CLI) ==
[2016-09-01 11:09] LABS: PROTHROMBIN TIME 12.7 SEC (9.3-11.0)
[2016-09-01 11:27] LABS: AMYLASE 517 U/L (25-115)
[2016-09-01 11:28] LABS: LIPASE > 1200 U/L (8-78)
== END 2016-09-01 10:19 | disposition home or self-care (01) ==
LOC: LAB 10:18
PROVIDERS: ATTEND General Practice
DX: I82.409 Acute embolism and thrombosis of unspecified deep veins of unspecified lower extremity (principal); K85.90 Acute pancreatitis without necrosis or infection, unspecified
CPT/HCPCS: 36415; 82150; 83690; 85610

== ENCOUNTER 2016-09-05 11:14 | Outpatient (CLI) ==
--- NOTE | 2016-09-05 12:11 | US ---
EXAM: Left lower extremity venous doppler. HISTORY: Chronic lower extremity deep vein thrombus. Left leg pain. COMPARISON: 03/17/2016. TECHNIQUE: Multiple grayscale and color doppler images were obtained. FINDINGS: There is partial color flow and compressibility within the left common femoral, greater s aphenous, profunda, superficial femoral, popliteal, and peroneal veins. There is color flow and com pressibility within the left posterior tibial and anterior tibial veins. IMPRESSION: Chronic nonocclusive left lower extremity thrombus with mild decrease in clot burden in the left sup erficial femoral vein.
== END 2016-09-05 11:15 | disposition home or self-care (01) ==
LOC: RAD 11:14
PROVIDERS: ATTEND General Practice
DX: M79.605 Pain in left leg (principal)

== ENCOUNTER 2016-09-05 12:36 | Inpatient (IN) ==
[2016-09-05 13:23] VITALS: BMI 22.0
[2016-09-05 13:47] LABS: BASOPHILS % (AUTO) 0.6 % (0.0-3.0); EOSINOPHILS # (AUTO) 0.1 K/ul (0.0-0.7); EOSINOPHILS % (AUTO) 1.7 % (0.0-7.0); HEMATOCRIT 32.4 % (42.0-52.0); HEMOGLOBIN 10.8 g/dl (14.0-18.0); IMMATURE GRANULOCYTE % (AUTO) 0.2 % (0.0-5.0); LYMPHOCYTES # (AUTO) 1.9 K/uL (0.60-3.4); LYMPHOCYTES % (AUTO) 36.1 (10.0-50.0); MEAN CORPUSCULAR HEMOGLOBIN 27.1 pg (27.0-31.0); MEAN CORPUSCULAR HGB CONC 33.3 (31.8-35.4); MEAN CORPUSCULAR VOLUME 81.4 fl (80.0-94.0); MONOCYTES # (AUTO) 0.5 K/uL (0.4-2.0); MONOCYTES % (AUTO) 9.8 (0-10); NEUTROPHILS # (AUTO) 2.7 K/ul (2.0-6.9); NEUTROPHILS % (AUTO) 51.6; PLATELET COUNT 206 10^3/uL (140-440); RED BLOOD COUNT 3.98 10^6/ul (4.70-6.10); WHITE BLOOD COUNT 5.18 K/ul (4.2-10.2)
[2016-09-05 14:00] LABS: PROTHROMBIN TIME 12.7 SEC (9.3-11.0)
[2016-09-05 14:18] LABS: ALBUMIN 4.1 g/dL (3.4-5.0); ALBUMIN/GLOBULIN RATIO 1.08; ANION GAP 19.7; BILIRUBIN,TOTAL 0.59 mg/dL (0.00-1.20); BUN/CREATININE RATIO 17.28; CALCIUM 9.1 mg/dL (8.2-10.2); CREATININE 0.81 mg/dL (0.60-1.10); POTASSIUM 3.7 mmol/L (3.5-5.1); TOTAL PROTEIN 7.9 g/dL (6.4-8.2)
[2016-09-05 14:22] LABS: ANISOCYTOSIS 1+ (NOT PRESENT)
--- NOTE | 2016-09-05 14:29 | DI ---
EXAM: CHEST FRONTAL AND LATERAL VIEWS HISTORY: DVT. COMPARISON: 03/21/2016 FINDINGS: Heart size remains normal. Lungs appear mildly hyperinflated. No acute infiltrates are s een. There is no consolidation, visible pleural fluid or pneumothorax. Bones reveal no acute fractu re. IMPRESSION: No acute cardiopulmonary process.
[2016-09-05] MEDS ORDERED: COUMADIN 2 MG, COUMADIN 5 MG PO SCH ×2 (17:00)
[2016-09-05] MEDS ORDERED: COUMADIN PO SCH (17:00)
[2016-09-05] MEDS ORDERED: CREON DR 12,000 UNITS CAPSULE PO SCH (17:00)
[2016-09-05] MEDS ORDERED: COUMADIN ONE (17:02)
[2016-09-05 19:09] LABS: BILIRUBIN,URINE Negative (NEGATIVE); KETONES,URINE 1+ (NEGATIVE); LEUKOCYTE ESTERASE ,URINE Negative (NEGATIVE); NITRITE,URINE Negative (NEGATIVE); PROTEIN,URINE Trace (NEGATIVE); URINE, BLOOD Negative (NEGATIVE)
[2016-09-05 19:12] LABS: ADD URINE MICROSCOPIC YES
[2016-09-05 19:23] LABS: BACTERIA,URINE TRACE (NOT PRESENT)
[2016-09-06] MEDS ORDERED: BENADRYL PO STA (01:38)
[2016-09-06 04:59] LABS: PROTHROMBIN TIME 13.3 SEC (9.3-11.0)
[2016-09-06 05:48] LABS: AMYLASE 495 U/L (25-115)
[2016-09-06 05:49] LABS: LIPASE 1380 U/L (8-78)
[2016-09-06] MEDS: TOPROL XL PO SCH (08:22)
[2016-09-06] MEDS: SPIRIVA IH SCH (08:23)
[2016-09-06] MEDS: CREON DR 12,000 UNITS CAPSULE PO SCH ×3 (08:23→17:01)
[2016-09-06] MEDS ORDERED: DECADRON 4 MG/ML SDV IM STA ×2 (09:38→14:21)
[2016-09-06] MEDS: BENADRYL PO SCH ×3 (11:02→21:09)
--- NOTE | 2016-09-06 11:10 | HP ---
CHIEF COMPLAINT: Pain in the left lower leg, posterior for one week. SOURCE OF HISTORY: Patient. HISTORY OF PRESENT ILLNESS: The patient claimed that he had been experiencing pain in the left posterior leg for the last week and had fallen several times because of the pain. He denies any headaches or any visual disturbances. This patient is known to have venous thrombosis and is on Coumadin. His ProTime, however, is nontherapeutic. The patient on examination at the office revealed tenderness in the left posterior leg to palpation. Dorsal flexion causes pain. The patient was then sent to radiology for Doppler studies of the left lower extremity and it did show chronic partial thrombosis. Because of the symptomatology and the physical findings, this patient was admitted to observation to anticoagulate the patient until the ProTime is therapeutic. He will also be given Lovenox in the meantime with the Coumadin. The patient also admitted to drinking 40 ounces alcohol last Sunday, three days ago. This patient had been advised not to drink any alcoholic beverages because of chronic pancreatitis with exacerbation. However, this patient continues to drink alcohol. I don't how much admonition I had to do to this patient in order for him to stop. The patient, however, today denies any abdominal pain and no significant tenderness in the epigastric area. PAST PERSONAL HISTORY: The patient claimed to have had venous thrombosis in both legs in 1979, myocardial infarction in 1984 and cardiac catheterization 1987. I am not certain as to the correct dates of this. These are provided by the patient. The patient had a pulmonary emboli about three and a half years ago and umbrella was inserted in [place]. He had a left upper lobe consolidation with cavitation, questionable tuberculosis and the patient was referred to a evp business development in [place] and decided that the problem was fungal rather than tubercular and the patient is taking Itraconazole. He had a history of pneumonia in 2011. The patient had GI bleeding in 2007. History of pancreatitis secondary to alcohol and recurrent pancreatitis due to alcohol use and abuse. Colonoscopy in 2014. Previous injury to the right hand, operated years ago. The patient also still is smoking. FAMILY HISTORY: Father had mesothelioma and of myocardial infarction in 1965. Mother had history of heart disease and in 2006. He had seven brothers and five are still alive. One brother had congenital heart disease at and four brothers had history of seizures. SOCIAL HISTORY: The patient is and resides with his . He is unemployed and had been for some time. He smokes every day and did resume drinking. He claims that he is not drinking every day, but had 40 ounces of alcohol last Sunday, three days ago. MEDICATIONS: Prior to this admission Metoprolol Succinate 25 mg daily Spiriva 18 mcg daily Nitroglycerin prn 0.4 mg, maximum of three and then to the emergency room if not relieved. Prilosec 10 mg suspension, 20 mg daily Warfarin Sodium alternating with 5 and 6. Creon 6000 units before each meal Lisinopril 10 mg daily This patient was given 1 mg of Warfarin in order to make the 6 mg. ALLERGIES: The patient has some reaction to Eliquis, Penicillin, Moxifloxacin. REVIEW OF SYSTEMS: CONSTITUTIONAL: The patient had no fever and no chills with no significant fatigue. INTERNAL RECRUITER: The patient has a history of seizures, but never had any seizures in the last few years. No ataxia. He had fallen because of pain in the left leg for which he could hardly walk because of the pain. VISUAL: The patient denies any blurred vision, double vision or transient loss of vision. AUDITORY: Hearing is good and he denies any tinnitus, pain or drainage. RESPIRATORY: The patient has cough, but no history of hemoptysis. The patient has history of cavitation in the left upper lobe judged to be fungal by a evp business development and treated with Itraconazole. CARDIOVASCULAR: Denies any chest pain or chest oppression. GASTROINTESTINAL: The patient's appetite is fair. He denies any vomiting. He denies any abdominal pain in spite of history of chronic pancreatitis. This patient had gained weight and is now 128 pounds. He was as low as 109 previously. GENITOURINARY: The patient denies any pain, burning or frequency of urination. MUSCULOSKELETAL: The patient has pain in the left leg aggravated by weight bearing on standing. INTEGUMENT: Denies any rash or pruritus. ENDOCRINE: Negative. HEMATOLOGIC: Denies any prolonged bleeding or easy bruising in spite of the Warfarin. PSYCHIATRIC: Affect is normal. PHYSICAL EXAMINATION: GENERAL: We have a 60 year old black male who is always pleasant and cooperative admitted to the hospital because of pain in the left posterior leg aggravated and exacerbated by weight bearing. He had fallen several times because of the pain and he is using a cane to stabilize him. VITAL SIGNS: Temperature 98.6, pulse 86, blood pressure 126/84 left and right 138/90, respiratory rate 16, oxygen saturation 98 at room air. Weight 128 lbs and 8 ounces. HEAD: Unremarkable. FACE: Symmetrical and equal with no facial weakness and remarkable tenderness to palpation under pressure in the frontal or maxillary sinus areas. EYES: Pupils equal/reactive to light about 3 mm in size. Conjunctivae slightly pale. Sclerae not icteric. MOUTH: Unremarkable. THROAT: No inflammation, tumors or exudate. NECK: No masses. No bruit. No tenderness. No rigidity. CHEST: Symmetrical and equal with good expansion with no significant tenderness now. This patient had tenderness in the left lateral lower chest wall. LUNGS: Breath sounds are diminished in both sides with a few rales on the left lower base, no wheezing. HEART: Audible and regular with good tones. No murmurs. ABDOMEN: Flat, soft with no remarkable tenderness and no guarding. Bowel sounds are active. No masses palpable. EXTERNAL GENITALIA: Not examined. RECTAL: Not performed. This patient had colonoscopy 2014. LOWER EXTREMITIES: Essentially symmetrical and equal and no significant edema with marked tenderness to palpation on the left posterior leg. The pain is aggravated by dorsal flexion. Tibial pulses are present. UPPER EXTREMITIES: Symmetrical and equal. ASSESSMENT: 1. DEEP VEIN THROMBOSIS, PARTIAL, LEFT LOWER EXTREMITY, SYMPTOMATIC 2. CHRONIC PANCREATITIS 3. CHRONIC ALCOHOL USE AND ABUSE, PERSISTENT 4. HISTORY OF DEEP VEIN THROMBOSIS YEARS AGO 5. HISTORY OF PULMONARY EMBOLI, SECONDARY TO DVT. TREATED WITH INFERIOR VENA CAVA UMBRELLA 6. HISTORY OF MYOCARDIAL INFARCTION TIMES TWO 7. HISTORY OF LEFT UPPER LOBE CONSOLIDATION CAVITATIONAL-FUNGAL 8. HISTORY OF NONCOMPLIANCE OF MEDICATIONS PLAN: 1. The patient will be admitted for anticoagulation. 2. We need to clarify the history of bleeding. MTDD
[2016-09-06] MEDS: D5%-1/2NS-KCL 20 MEQ/L IV SOL 1,000 ML IV SCH (14:57)
[2016-09-06] MEDS ORDERED: COUMADIN PO SCH (17:00)
[2016-09-06] MEDS ORDERED: COUMADIN 2 MG, COUMADIN 5 MG PO SCH ×2 (17:00)
[2016-09-06] MEDS: COUMADIN PO SCH ×2 (17:01)
[2016-09-06] MEDS: XALATAN OP SCH (21:10)
[2016-09-07] MEDS: D5%-1/2NS-KCL 20 MEQ/L IV SOL 1,000 ML IV SCH ×2 (02:03→13:38)
[2016-09-07] MEDS: BENADRYL PO SCH ×4 (03:45→21:01)
[2016-09-07 06:23] LABS: PROTHROMBIN TIME 14.9 SEC (9.3-11.0)
[2016-09-07 06:33] LABS: AMYLASE 183 U/L (25-115); LIPASE 282 U/L (8-78)
[2016-09-07] MEDS: TOPROL XL PO SCH (08:27)
[2016-09-07] MEDS: SPIRIVA IH SCH (08:27)
[2016-09-07] MEDS: CREON DR 12,000 UNITS CAPSULE PO SCH ×3 (08:28→17:04)
--- NOTE | 2016-09-07 10:57 | PN ---
DATE OF VISIT: 09/06/16 The patient had developed swelling of the upper lip and was given Benadryl during the night. It happened somewhere about midnight to one o'clock. The patient this morning still has the swelling and maybe to the right side of the face, but the tongue was not edematous. The patient claimed that he had the swelling at least once a year about this time. This patient did not have any swelling while he was at the office and also in the early part of the day and evening. We will try to find the reason for the angioedema. The patient does not have any dyspnea, nor tachypnea. The cough is more or less gurgling and productive. LUNGS: Has coarse breath sounds, no wheezing. HEART: Audible with good tones. The patient will be given Decadron 4 mg in the morning, as well as Benadryl 25 mg every 6 hours. We will try to catalog the food that he had eaten, although it is hard to index, since we do not have any records of the time that he had the swelling a year ago and even before that. DAIJA
--- NOTE | 2016-09-07 11:19 | PN ---
DATE OF VISIT: 09/06/16 at 19:20 The patient still has some swelling of the lip and he was given a second dose in the early afternoon of Decadron 4 mg. Since he still has swelling, I felt that maybe I should keep him NPO to see if we would be able to determine what food may have triggered the problem. There was no additional medication given to him except what he had at home. I had discontinued his Lisinopril, since his blood pressure was acceptable and he has low reading probably Lisinopril might not be the best medication for him for his hypertension. VITAL SIGNS: At 2 p.m. showed a temperature of 98.4, pulse 73, blood pressure 134/86, respiratory rate 20, oxygen saturation 98 at room air. This patient is given IV fluids with electrolyte replacement. [facility]
[2016-09-07] MEDS: COUMADIN PO SCH ×2 (17:04)
[2016-09-07] MEDS: XALATAN OP SCH (21:01)
[2016-09-08] MEDS: D5%-1/2NS-KCL 20 MEQ/L IV SOL 1,000 ML IV SCH ×2 (02:45→15:36)
[2016-09-08] MEDS: BENADRYL PO SCH ×4 (03:05→21:21)
[2016-09-08 05:38] LABS: BASOPHILS % (AUTO) 0.4 % (0.0-3.0); EOSINOPHILS # (AUTO) 0.1 K/ul (0.0-0.7); EOSINOPHILS % (AUTO) 0.9 % (0.0-7.0); HEMATOCRIT 33.8 % (42.0-52.0); IMMATURE GRANULOCYTE % (AUTO) 0.3 % (0.0-5.0); LYMPHOCYTES # (AUTO) 2.2 K/uL (0.60-3.4); LYMPHOCYTES % (AUTO) 29.3 (10.0-50.0); MEAN CORPUSCULAR HGB CONC 32.5 (31.8-35.4); MONOCYTES # (AUTO) 0.6 K/uL (0.4-2.0); MONOCYTES % (AUTO) 8.4 (0-10); NEUTROPHILS # (AUTO) 4.6 K/ul (2.0-6.9); NEUTROPHILS % (AUTO) 60.7; PLATELET COUNT 204 10^3/uL (140-440); RED BLOOD COUNT 4.07 10^6/ul (4.70-6.10); WHITE BLOOD COUNT 7.64 K/ul (4.2-10.2)
[2016-09-08 05:47] LABS: PROTHROMBIN TIME 16.7 SEC (9.3-11.0)
[2016-09-08 05:56] LABS: ALBUMIN 3.6 g/dL (3.4-5.0); ALBUMIN/GLOBULIN RATIO 1.09; ANION GAP 13.1; BILIRUBIN,TOTAL 0.2 mg/dL (0.00-1.20); BUN/CREATININE RATIO 8.13; CALCIUM 8.7 mg/dL (8.2-10.2); CREATININE 0.86 mg/dL (0.60-1.10); POTASSIUM 4.1 mmol/L (3.5-5.1); TOTAL PROTEIN 6.9 g/dL (6.4-8.2)
[2016-09-08] MEDS: SPIRIVA IH SCH (08:59)
[2016-09-08] MEDS: CREON DR 12,000 UNITS CAPSULE PO SCH ×3 (09:00→16:43)
[2016-09-08] MEDS: TOPROL XL PO SCH (09:00)
[2016-09-08] MEDS: COUMADIN PO SCH ×2 (16:41)
[2016-09-08] MEDS: XALATAN OP SCH (20:48)
[2016-09-09] MEDS: D5%-1/2NS-KCL 20 MEQ/L IV SOL 1,000 ML IV SCH (03:17)
[2016-09-09] MEDS: BENADRYL PO SCH ×4 (04:15→21:15)
[2016-09-09 05:20] LABS: AMYLASE 322 U/L (25-115); LIPASE 698 U/L (8-78)
[2016-09-09] MEDS: CREON DR 12,000 UNITS CAPSULE PO SCH ×3 (08:25→17:17)
[2016-09-09] MEDS: TOPROL XL PO SCH (08:25)
[2016-09-09] MEDS: SPIRIVA IH SCH (08:25)
[2016-09-09] MEDS: COUMADIN PO SCH ×2 (17:18)
[2016-09-09] MEDS: XALATAN OP SCH (20:30)
[2016-09-10] MEDS: D5%-1/2NS-KCL 20 MEQ/L IV SOL 1,000 ML IV SCH (00:38)
[2016-09-10] MEDS: BENADRYL PO SCH (04:10)
[2016-09-10 07:46] LABS: PROTHROMBIN TIME 16.3 SEC (9.3-11.0)
[2016-09-10 08:28] LABS: AMYLASE 567 U/L (25-115)
[2016-09-10] MEDS: TOPROL XL PO SCH (08:28)
[2016-09-10] MEDS: SPIRIVA IH SCH (08:28)
[2016-09-10 08:29] LABS: LIPASE 1140 U/L (8-78)
[2016-09-10] MEDS: CREON DR 12,000 UNITS CAPSULE PO SCH ×3 (08:29→17:22)
[2016-09-10] MEDS: COUMADIN PO SCH ×2 (17:22)
[2016-09-10] MEDS: XALATAN OP SCH (20:22)
[2016-09-11 05:29] LABS: BASOPHILS % (AUTO) 0.7 % (0.0-3.0); EOSINOPHILS # (AUTO) 0.1 K/ul (0.0-0.7); EOSINOPHILS % (AUTO) 2.1 % (0.0-7.0); HEMATOCRIT 35.5 % (42.0-52.0); HEMOGLOBIN 11.5 g/dl (14.0-18.0); IMMATURE GRANULOCYTE % (AUTO) 0.2 % (0.0-5.0); LYMPHOCYTES # (AUTO) 2.1 K/uL (0.60-3.4); LYMPHOCYTES % (AUTO) 48.9 (10.0-50.0); MEAN CORPUSCULAR HEMOGLOBIN 26.8 pg (27.0-31.0); MEAN CORPUSCULAR HGB CONC 32.4 (31.8-35.4); MEAN CORPUSCULAR VOLUME 82.8 fl (80.0-94.0); MONOCYTES # (AUTO) 0.6 K/uL (0.4-2.0); MONOCYTES % (AUTO) 12.8 (0-10); NEUTROPHILS # (AUTO) 1.5 K/ul (2.0-6.9); NEUTROPHILS % (AUTO) 35.3; PLATELET COUNT 200 10^3/uL (140-440); RED BLOOD COUNT 4.29 10^6/ul (4.70-6.10); WHITE BLOOD COUNT 4.36 K/ul (4.2-10.2)
[2016-09-11 05:47] LABS: PROTHROMBIN TIME 18.8 SEC (9.3-11.0)
[2016-09-11 06:14] LABS: ALBUMIN 3.7 g/dL (3.4-5.0); ALBUMIN/GLOBULIN RATIO 0.93; BILIRUBIN,TOTAL 0.28 mg/dL (0.00-1.20); BUN/CREATININE RATIO 14.28; CALCIUM 9.1 mg/dL (8.2-10.2); CREATININE 0.91 mg/dL (0.60-1.10); TOTAL PROTEIN 7.7 g/dL (6.4-8.2)
[2016-09-11] MEDS: TOPROL XL PO SCH (09:00)
[2016-09-11] MEDS: SPIRIVA IH SCH (09:57)
[2016-09-11] MEDS: CREON DR 12,000 UNITS CAPSULE PO SCH ×3 (09:58→19:04)
--- NOTE | 2016-09-11 11:06 | PN ---
DATE OF VISIT: 09/07/16 The patient is alert and not dyspneic, nor tachypneic. The swelling of the upper lip has regressed, but there is still some residual swelling at the lip, as well as the face. The patient told me that every august that he has this swelling. It had been for the last three years and lasts for about a week. He stayed on that claim as yesterday, as well as the day before and that it happens every year. RESPIRATORY: The patient has a gurgling cough. The lungs has coarse breath sounds, but no rales and no wheezing. HEART: Normal sinus rhythm. ABDOMEN: No remarkable tenderness. I kept him NPO and he feels hungry and he would like to eat. His serum Amylase and Lipase has reduced remarkably and this patient will be given food. We still will continue the Benadryl. He was not given any further Cortisone, because of the patient's problem in the lung consisting of left upper lobe cavitation, judged to be fungal and is taking Itraconazole. We will repeat the serum Amylase and Lipase tomorrow. This patient is on Warfarin and he is still not therapeutic. This patient does have an umbrella. CBC, CMP, serum Amylase and Lipase tomorrow. MTDD
--- NOTE | 2016-09-11 11:18 | PN ---
DATE OF VISIT: 09/08/16 The patient is alert without any distress. The swelling in the face and lips has regressed remarkably. VITAL SIGNS: At 6 p.m. today, 09/08/2016, shows a temperature of 97.7, pulse 69 , blood pressure 122/88, respiratory rate 18, oxygen saturation 98 on room air. LUNGS: The patient does have coarse breath sounds, but no wheezing or rales. HEART: Audible and regular with good tones. I again advised him to never resume drinking. The alcohol does bother his pancreas and he already has chronic pancreatitis. I had monitored his Amylase and Lipase as an outpatient and it is elevated and probably because he still is drinking and indeed he admitted to doing the drinking. I told him he could not drink a drop of alcohol. I felt that he is quite clive to this day that he does not have any significant with the chronic pancreatitis and acute exacerbation with alcohol intake. CBC today is essentially the same as yesterday. Hemoglobin 11, hematocrit 33.8. PT is still not therapeutic and is now getting 7 mg of Coumadin daily. D -Dimer was elevated. This patient has an umbrella and he has been on Coumadin, however he is not compliant with the medication. He had been on Eliquis and he claimed that he had some reaction. I felt that it would easier if he would just take the medication without any blood monitoring. His Amylase today is up to 224 from 183 yesterday and Lipase is up to 490 from 282. The patient was given food beginning yesterday. IKERD
--- NOTE | 2016-09-11 11:28 | PN ---
DATE OF VISIT: 09/10/16 The patient is alert and the swelling of the lips and face has resolved. The patient denies any pain, but still has productive cough. LUNGS: Still has coarse breath sounds and diminished in both lung lazo. HEART: Normal sinus rhythm. ABDOMEN: The patient has no abdominal pain and no remarkable tenderness. VITAL SIGNS: At 10 a.m. showed a temperature of 98.1, pulse 80, blood pressure 116/76, respiratory rate 20, oxygen saturation 97 at room air. The patient's ProTime today is nontherapeutic at 1.58 and yesterday it was 1.94 and he is receiving the same amount. I did tell the patient that he should not be eating any food. His does bring him food. His serum Amylase is much higher now, even higher than admission. This patient had consumed alcohol about two days before that. His Lipase now is higher, but not as high as admission at 1,140 and 1,380 on admission. This patient had no alcohol intake, as far as I know. He does not smell like he has drank alcohol. The only way that he would get alcohol is if his would bring the alcohol. I told the not to buy the alcohol at home. She told me that she does buy the alcohol for him, since if she doesn't he would get somebody to buy it for him. I did advise the patient that later on he might experience pain from the chronic pancreatitis. CBC, CMP, Amylase and Lipase is ordered for tomorrow. Ultrasound of the abdomen will be ordered for the purpose of visualizing the pancreas. DAIJA
--- NOTE | 2016-09-11 12:25 | PN ---
DATE OF VISIT: 09/09/16 The patient is alert, oriented and not dyspneic, nor tachypneic. The swelling in the lips and the face is almost completely resolved. The patient does not complain of any problems breathing or swallowing food. LUNGS: The lungs has diminished breath sounds and coarse breath sounds, but no wheezing. HEART: Audible with good tones. ABDOMEN: Nontender. VITAL SIGNS: At 2 p.m. today, 09/09/2016, showed a temperature of 97.3, pulse 93, blood pressure 103/79, respiratory rate 16, oxygen saturation 98 at room air. The IV is discontinued and the patient is advised to ambulate. His ProTime now is more or less therapeutic at 1.94. His D-Dimer is high and this is probably because of the chronic problems that he has. However, as long as he is anticoagulated he will be discharged home and most likely that would be tomorrow. This patient, again, is admonished never to resume drinking. His lipase and amylase had risen compared to yesterday[place] [address] before meals. He also gets it at hs. CONDITION: Stable. Angioedema improved and near complete resolution. Reason for the angioedema is still not known. MTDD
--- NOTE | 2016-09-11 12:56 | US ---
EXAM: Ultrasound abdomen complete HISTORY: Pancreatitis COMPARISON: Right upper quadrant ultrasound 02/11/2016 TECHNIQUE: Complete ultrasound abdomen was performed FINDINGS: Pancreas obscured secondary bowel gas shadowing. Visualized portion aorta and inferior v galindo cava unremarkable. Liver normal in size and echogenicity. Main portal vein patent with normal direction of flow. Gallbladder fluid-filled without gallbladder wall thickening, pericholecystic fl uid, or shadowing gallstones. No biliary duct dilation with common bile duct measuring 0.3 cm. Rig ht kidney measures 9.4 cm in length. Left kidney measures 9.2 cm in length. No hydronephrosis. Sp oralia normal in size and echogenicity measuring 5.7 cm in length. Bladder only mildly distended and poorly evaluated, grossly unremarkable. IMPRESSION: 1. Pancreas obscured secondary bowel gas shadowing. 2. Otherwise unremarkable complete ultrasound abdomen.
[2016-09-11] MEDS: COUMADIN PO SCH ×2 (17:53)
[2016-09-11] MEDS: XALATAN OP SCH (20:20)
[2016-09-12 05:32] LABS: PROTHROMBIN TIME 18.4 SEC (9.3-11.0)
[2016-09-12 06:27] LABS: AMYLASE 594 U/L (25-115)
[2016-09-12 06:28] LABS: LIPASE 1456 U/L (8-78)
[2016-09-12] MEDS: TOPROL XL PO SCH (08:21)
[2016-09-12] MEDS: SPIRIVA IH SCH (08:21)
[2016-09-12] MEDS: CREON DR 12,000 UNITS CAPSULE PO SCH ×2 (08:22→12:43)
--- NOTE | 2016-09-12 11:57 | CT ---
EXAM: CT scan of the abdomen and pelvis with contrast HISTORY: Elevated lipase and amylase TECHNIQUE: Imaging of the abdomen and pelvis was performed following the intravenous administration of contrast. 3 mm thin axial images and coronal and sagittal reconstructions were provided for int erpretation. Comparison CT scan of the abdomen and pelvis dated 03/15/2016. FINDINGS: The liver, spleen, adrenal glands and kidneys appear within normal limits. Calcifications of the head of the pancreas are seen. There is mild dilatation of the pancreatic duct. No definit e mass lesions are seen. No inflammatory changes are seen along the pancreas. There is no evidence of fluid seen along the anterior pararenal spaces. The small and large bowel loops are normal jarrod leda. There is no free air. No acute abnormalities are seen within the anterior abdominal wall. IVC filter is present. The helical images obtained through the pelvis demonstrate a normal appearance of the urinary bladde r. There is a tiny amount of free fluid seen within the pelvis. No retroperitoneal abnormalities a re seen. There is a normal appearance of the appendix. Lung bases are clear. No lytic or blastic l esions are seen within the osseous structures. IMPRESSION: Changes compatible with chronic pancreatitis. There is no bowel obstruction or acute inflammatory change seen within the abdomen and pelvis. There is no ureteral obstruction.
[2016-09-12] MEDS: BENADRYL PO SCH (13:49)
[2016-09-12 14:50] VITALS: BP 125/83; TEMP 97.2
--- NOTE | 2016-09-13 14:28 | PN ---
DATE OF VISIT: 09/11/16 The patient is alert, responsive and cooperative and smiling. He denies any abdominal pain. VITAL SIGNS: Today at 6 p.m. showed a temperature of 97.8, pulse 76, blood pressure 136/84, respiratory rate 20, oxygen saturation 98 at room air. LUNGS: Still has coarse breath sounds, no wheezing. HEART: Audible and regular with good tones. ABDOMEN: Flat with no tenderness. Bowel sounds are active. His WBC is normal and hemoglobin and hematocrit below normal. A ProTime today is still subtherapeutic and INR of 1.83. He is continued on 7 mg of Coumadin. The patient's chemistries are normal. His amylase is 694 today and 567 yesterday. It became as low as 183 when the patient was kept NPO and given IV fluids. The lipase now is 1,705 and was as low 282. The patient had not been taking any alcohol since a few days before admission and since admission. I don 't know if the rise of the amylase is nonpancreatic in source. The patient is receiving Creon for assumed pancreatic insufficiency. I would stop that medication today. I would discuss with the radiologist tomorrow as to what kind of tests would be better to diagnose some pancreatic problems that is not visualized with a CT without contrast. A CT with contrast probably at 3 mm slices, as well as an MRCP, although this patient does not have any liver enzyme elevation. This patient did eat 100% of his meals. MTDD
--- NOTE | 2016-09-19 11:37 | DS ---
PATIENT IDENTIFICATION: 60 year old black male who was admitted to the hospital from the office because of pain in the left posterior leg for more than a week. The patient had difficulty walking because of the pain and the area is markedly tender. This patient had previous history of DVT. HOSPITAL COURSE: He is alert, oriented times four, not dyspneic, not tachypneic. NECK: No masses and no bruit. CHEST: Symmetrical and equal with good expansion and no significant tenderness. He had some in the left lower lateral chest wall. LUNGS: Breath sounds are diminished in both sides with a few rales at the bases. No wheezing. HEART: Regular with good tones and no murmurs. ABDOMEN: Flat, soft with no remarkable tenderness and no guarding. Bowel sounds are active. LOWER EXTREMITIES: The patient was felt to have a deep venous thrombosis of the left lower extremity. The patient during this admission had the following work-up. CBC showing moderate anemia at 10.8 on 09/05/16. ProTime nontherapeutic at 1.23. D-Dimer 3697. Electrolytes normal. CO2 low at 18. Serum amylase 957, lipase 2656. The patient denies any abdominal pain and no abdominal tenderness. This patient is known to have chronic pancreatitis. He, however, admitted to drinking 40 ounces of beer a few days ago. This patient had been advised multiple times about alcohol and his chronic pancreatitis that he should not drink a drop of it. He is not very compliant about his medication also. The patient was given Coumadin 7 mg daily. He was taking alternating 5 and 6 at home. He was previously therapeutic. INR was getting greater with 7 mg. No CTA was done since this patient has an umbrella and the patient does not have any respiratory problems. The pain in the left leg decreased in intensity and the patient is now able to walk. The patient was placed on IV fluids and kept NPO and the serum amylase and lipase has decreased. The lipase and amylase on 09/07/2016 was 282 and 183 respectively. This patient was placed on a regular diet and his serum amylase and lipase has gradually risen. The patient, however, did not complain of any pain. Serum amylase and lipase continued to rise and was highest at day before discharge. Amylase 694 and lipase 1705. These decreased slightly on the day of discharge to 594 and 1456. The INR has gotten to 1.94 down to 1.58 and up to 1.83 and on discharge was 1.79. Gallbladder ultrasound was done 09/11/16 and the pancreatic area was not studied satisfactorily because of the gas overlying the pancreas. CT scan of the abdomen and pelvis with contrast at 3 mm slices was done 09/12/2016 and showed changes compatible with chronic pancreatitis. There is no bowel obstruction or acute inflammatory changes seen within the abdomen and pelvis. There is no ureteral obstruction. The patient's last CBC was on 09/11/16 showing persistent anemia at 11.5 grams hemoglobin, 35.5 hematocrit, normal WBC and platelet count. CMP is normal. The patient, at the time of discharge is alert, ambulatory with less amount of discomfort in the left posterior leg. LUNGS: Clear to auscultation in both sides. HEART: Normal sinus rhythm. ABDOMEN: Nontender. PLAN: 1. The patient was instructed to take 6 mg of Coumadin daily. 2. See me a week from the time of discharge. 3. He should have a ProTime before coming to the office, on the day before. 4. He is to resume the Creon 6,000 units before each meal and at bedtime. 5. Lisinopril 10 mg daily. 6. Metoprolol Succinate 25 mg daily. 7. Nitroglycerin prn. 8. Omeprazole 20 mg daily 9. Tiotropium Blanket. 10. The patient will be contacted to make sure that he is taking 6 mg of Coumadin. 11. The patient will be referred to a GI doctor for the persistent elevation of serum amylase and lipase. There is no liver enzyme elevation or alkaline phosphatase or total bilirubin. Serum amylase and lipase will be monitored on the outpatient and they were always elevated, but the patient always had been drinking, although not ever day, but I do believe that that was enough to elevate the serum amylase and lipase. Doppler studies just before admission showed chronic nonocclusive left lower extremity thrombus with mild decrease in clot burden in the left superficial femoral vein. I had repeatedly emphasized to him that he needs to take his medication, Coumadin, regularly at the same amount as instructed. He should never miss a dose. The patient told me that he would do so. I reemphasize that if he does not follow the instructions that it would compromise his life. The patient's was in the room when the instructions was given and she was also advised never to buy alcohol for him. The patient promised that he would not drink alcohol. FINAL DIAGNOSES: 1. LEFT LEG PAIN, SECONDARY TO CHRONIC DVT WITH EXACERBATION 2. CHRONIC PANCREATITIS WITH ENZYME ELEVATION, AMYLASE AND LIPASE 3. CHRONIC ALCOHOL USE AND ABUSE, PERSISTENT. ALTHOUGH HE CLAIMED IT TO BE LESS. 4. HISTORY OF DVT 5. 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 HISTORY OF MYOCARDIAL INFARCTION TIMES TWO 7. HISTORY OF LEFT UPPER LOBE CONSOLIDATION WITH CAVITATION JUDGED TO BE FUNGAL , UNDER A OVERNIGHT CASHIER CARE AND TREATED WITH ITRACONAZOLE 8. HISTORY OF NONCOMPLIANCE PROGNOSIS: Guarded to poor since the patient does not comply. MTDD
== END 2016-09-12 16:45 | disposition home or self-care (01) | DRG 916 ==
LOC: MEDSURG B 12:36 → OBSVTOIN 09-06 09:30
PROVIDERS: ADMIT General Practice; ATTEND General Practice
DX: T78.3XXA Angioneurotic edema, initial encounter (principal); I82.502 Chronic embolism and thrombosis of unspecified deep veins of left lower extremity; K86.1 Other chronic pancreatitis; M79.605 Pain in left leg; F10.20 Alcohol dependence, uncomplicated; R79.1 Abnormal coagulation profile; R74.8 Abnormal levels of other serum enzymes; I25.2 Old myocardial infarction; Z79.01 Long term (current) use of anticoagulants; Z86.711 Personal history of pulmonary embolism; Z95.828 Presence of other vascular implants and grafts; Z87.09 Personal history of other diseases of the respiratory system; Z91.19 Patient's noncompliance with other medical treatment and regimen
CPT/HCPCS: 36415; 80053; 81001; 82150; 83690; 85008; 85025; 85379; 85610; 93005; 93010; 97802; 99223; 99232

== ENCOUNTER 2016-09-18 10:00 | Outpatient (CLI) ==
[2016-09-18 12:47] LABS: PROTHROMBIN TIME 19.5 SEC (9.3-11.0)
[2016-09-18 13:16] LABS: ALANINE AMINOTRANSFERASE 21 U/L (12-78); ALKALINE PHOSPHATASE 87 U/L (56-119); AMYLASE 337 U/L (25-115); ASPARTATE AMINO TRANSFERASE 24 U/L (15-37); BILIRUBIN,DIRECT 0.11 mg/dL (0.00-0.30); TOTAL PROTEIN 8.9 g/dL (6.4-8.2)
[2016-09-18 13:21] LABS: LIPASE 765 U/L (8-78)
== END 2016-09-18 10:01 | disposition home or self-care (01) ==
LOC: LAB 10:00
PROVIDERS: ATTEND General Practice
DX: K86.1 Other chronic pancreatitis (principal); F10.20 Alcohol dependence, uncomplicated; I82.409 Acute embolism and thrombosis of unspecified deep veins of unspecified lower extremity
CPT/HCPCS: 36415; 80076; 80307; 82150; 83690; 85610

== ENCOUNTER 2016-09-26 12:18 | Outpatient (CLI) ==
[2016-09-26 13:49] LABS: AMYLASE 471 U/L (25-115); LIPASE 1067 U/L (8-78)
[2016-09-26 13:54] LABS: PROTHROMBIN TIME 15.2 SEC (9.3-11.0)
== END 2016-09-26 12:19 | disposition home or self-care (01) ==
LOC: LAB 12:18
PROVIDERS: ATTEND General Practice
DX: I82.409 Acute embolism and thrombosis of unspecified deep veins of unspecified lower extremity (principal); K85.90 Acute pancreatitis without necrosis or infection, unspecified
CPT/HCPCS: 36415; 82150; 83690; 85610

== ENCOUNTER 2016-10-03 11:31 | Outpatient (CLI) ==
[2016-10-03 12:24] LABS: AMYLASE 302 U/L (25-115); LIPASE 559 U/L (8-78)
[2016-10-03 13:17] LABS: PROTHROMBIN TIME 19.7 SEC (9.3-11.0)
== END 2016-10-03 11:32 | disposition home or self-care (01) ==
LOC: LAB 11:31
PROVIDERS: ATTEND General Practice
DX: I82.409 Acute embolism and thrombosis of unspecified deep veins of unspecified lower extremity (principal); K85.90 Acute pancreatitis without necrosis or infection, unspecified
CPT/HCPCS: 36415; 82150; 83690; 85610

== ENCOUNTER 2016-10-09 13:25 | Outpatient (CLI) ==
[2016-10-09 15:46] LABS: PROTHROMBIN TIME 17.2 SEC (9.3-11.0)
== END 2016-10-09 13:26 | disposition home or self-care (01) ==
LOC: LAB 13:25
PROVIDERS: ATTEND General Practice
DX: I82.532 Chronic embolism and thrombosis of left popliteal vein (principal); I82.419 Acute embolism and thrombosis of unspecified femoral vein; I27.82 Chronic pulmonary embolism
CPT/HCPCS: 36415; 85610

== ENCOUNTER 2016-10-18 11:27 | Outpatient (CLI) ==
[2016-10-18 12:08] LABS: PROTHROMBIN TIME 22.1 SEC (9.3-11.0)
[2016-10-18 12:32] LABS: AMYLASE 508 U/L (25-115); LIPASE 1168 U/L (8-78)
== END 2016-10-18 11:28 | disposition home or self-care (01) ==
LOC: LAB 11:27
PROVIDERS: ATTEND General Practice
DX: I82.409 Acute embolism and thrombosis of unspecified deep veins of unspecified lower extremity (principal); K85.90 Acute pancreatitis without necrosis or infection, unspecified
CPT/HCPCS: 36415; 82150; 83690; 85610

== ENCOUNTER 2016-10-24 12:58 | Outpatient (CLI) ==
[2016-10-24 13:27] LABS: PROTHROMBIN TIME 26.4 SEC (9.3-11.0)
[2016-10-24 14:08] LABS: AMYLASE 451 U/L (25-115); LIPASE 1035 U/L (8-78)
== END 2016-10-24 12:59 | disposition home or self-care (01) ==
LOC: LAB 12:58
PROVIDERS: ATTEND General Practice
DX: I82.409 Acute embolism and thrombosis of unspecified deep veins of unspecified lower extremity (principal); K85.90 Acute pancreatitis without necrosis or infection, unspecified
CPT/HCPCS: 36415; 82150; 83690; 85610

== ENCOUNTER 2016-11-02 09:07 | Outpatient (CLI) ==
[2016-11-02 09:42] LABS: PROTHROMBIN TIME 16.1 SEC (9.3-11.0)
[2016-11-02 09:51] LABS: AMYLASE 352 U/L (25-115)
[2016-11-02 09:59] LABS: LIPASE 956 U/L (8-78)
== END 2016-11-02 09:08 | disposition home or self-care (01) ==
LOC: LAB 09:07
PROVIDERS: ATTEND General Practice
DX: I82.409 Acute embolism and thrombosis of unspecified deep veins of unspecified lower extremity (principal); K85.90 Acute pancreatitis without necrosis or infection, unspecified
CPT/HCPCS: 36415; 82150; 83690; 85610

== ENCOUNTER 2016-11-09 12:49 | Outpatient (CLI) ==
[2016-11-09 13:35] LABS: PROTHROMBIN TIME 21.5 SEC (9.3-11.0)
== END 2016-11-09 12:50 | disposition home or self-care (01) ==
LOC: LAB 12:49
PROVIDERS: ATTEND General Practice
DX: Z51.81 Encounter for therapeutic drug level monitoring (principal); Z79.01 Long term (current) use of anticoagulants; I82.409 Acute embolism and thrombosis of unspecified deep veins of unspecified lower extremity
CPT/HCPCS: 36415; 85610

== ENCOUNTER 2016-11-23 09:29 | Outpatient (CLI) ==
[2016-11-23 10:27] LABS: PROTHROMBIN TIME 21.9 SEC (9.3-11.0)
== END 2016-11-23 09:30 | disposition home or self-care (01) ==
LOC: LAB 09:29
PROVIDERS: ATTEND General Practice
DX: Z51.81 Encounter for therapeutic drug level monitoring (principal); Z79.01 Long term (current) use of anticoagulants; I82.409 Acute embolism and thrombosis of unspecified deep veins of unspecified lower extremity
CPT/HCPCS: 36415; 85610

== ENCOUNTER 2016-12-08 11:08 | Outpatient (CLI) ==
[2016-12-08 11:53] LABS: PROTHROMBIN TIME 18.3 SEC (9.3-11.0)
== END 2016-12-08 11:09 | disposition home or self-care (01) ==
LOC: LAB 11:08
PROVIDERS: ATTEND General Practice
DX: Z51.81 Encounter for therapeutic drug level monitoring (principal); Z79.01 Long term (current) use of anticoagulants; I82.409 Acute embolism and thrombosis of unspecified deep veins of unspecified lower extremity
CPT/HCPCS: 36415; 85610

== ENCOUNTER 2016-12-15 13:51 | Outpatient (CLI) | END 2016-12-15 13:52 | disposition home or self-care (01) | LOC: LAB 13:51 | PROVIDERS: ATTEND Internal Medicine Gastroenterology | DX: R63.4 Abnormal weight loss (principal) | CPT/HCPCS: 36415 ==

== ENCOUNTER 2017-01-08 09:57 | Outpatient (CLI) ==
[2017-01-08 10:38] LABS: PROTHROMBIN TIME 16.6 SEC (9.3-11.0)
== END 2017-01-08 09:58 | disposition home or self-care (01) ==
LOC: LAB 09:57
PROVIDERS: ATTEND General Practice
DX: Z51.81 Encounter for therapeutic drug level monitoring (principal); Z79.01 Long term (current) use of anticoagulants; I82.409 Acute embolism and thrombosis of unspecified deep veins of unspecified lower extremity
CPT/HCPCS: 36415; 85610

== ENCOUNTER 2017-01-10 09:13 | Outpatient (CLI) ==
[2017-01-10 10:00] LABS: PROTHROMBIN TIME 18.2 SEC (9.3-11.0)
== END 2017-01-10 09:14 | disposition home or self-care (01) ==
LOC: LAB 09:13
PROVIDERS: ATTEND General Practice
DX: Z51.81 Encounter for therapeutic drug level monitoring (principal); Z79.01 Long term (current) use of anticoagulants; I82.409 Acute embolism and thrombosis of unspecified deep veins of unspecified lower extremity
CPT/HCPCS: 36415; 85610

== ENCOUNTER 2017-01-31 09:58 | Outpatient (CLI) ==
[2017-01-31 10:50] LABS: PROTHROMBIN TIME 37.7 SEC (9.3-11.0)
== END 2017-01-31 09:59 | disposition home or self-care (01) ==
LOC: LAB 09:58
PROVIDERS: ATTEND General Practice
DX: Z51.81 Encounter for therapeutic drug level monitoring (principal); Z79.01 Long term (current) use of anticoagulants; I82.409 Acute embolism and thrombosis of unspecified deep veins of unspecified lower extremity
CPT/HCPCS: 36415; 85610

== ENCOUNTER 2017-02-07 11:04 | Outpatient (CLI) ==
--- NOTE | 2017-02-07 11:24 | DI ---
EXAM: PA and lateral views of the chest HISTORY: Cough. COMPARISON: None FINDINGS: The cardiomediastinal silhouette is normal. There is no pneumothorax or pleural effusion. There is no consolidation, nodule or mass. The osseous structures are unremarkable. IVC filter is present. IMPRESSION: No acute cardiopulmonary process
[2017-02-07 12:47] LABS: PROTHROMBIN TIME 24.4 SEC (9.3-11.0)
== END 2017-02-07 11:05 | disposition home or self-care (01) ==
LOC: RAD 11:04
PROVIDERS: ATTEND General Practice
DX: Z51.81 Encounter for therapeutic drug level monitoring (principal); Z79.01 Long term (current) use of anticoagulants; I82.409 Acute embolism and thrombosis of unspecified deep veins of unspecified lower extremity; R05 Cough
CPT/HCPCS: 36415; 85610

== ENCOUNTER 2017-02-22 10:04 | Outpatient (CLI) ==
[2017-02-22 10:34] LABS: PROTHROMBIN TIME 14.4 SEC (9.3-11.0)
== END 2017-02-22 10:05 | disposition home or self-care (01) ==
LOC: LAB 10:04
PROVIDERS: ATTEND General Practice
DX: Z51.81 Encounter for therapeutic drug level monitoring (principal); Z79.01 Long term (current) use of anticoagulants; I82.409 Acute embolism and thrombosis of unspecified deep veins of unspecified lower extremity
CPT/HCPCS: 36415; 85610

== ENCOUNTER 2017-03-07 11:38 | Outpatient (CLI) | END 2017-03-07 11:39 | disposition home or self-care (01) | LOC: LAB 11:38 | PROVIDERS: ATTEND General Practice | DX: Z51.81 Encounter for therapeutic drug level monitoring (principal); Z79.01 Long term (current) use of anticoagulants; I82.409 Acute embolism and thrombosis of unspecified deep veins of unspecified lower extremity | CPT/HCPCS: 36415; 85610 ==

== ENCOUNTER 2017-03-10 11:55 | Outpatient (CLI) | END 2017-03-10 11:56 | disposition home or self-care (01) | LOC: LAB 11:55 | PROVIDERS: ATTEND General Practice | DX: Z51.81 Encounter for therapeutic drug level monitoring (principal); Z79.01 Long term (current) use of anticoagulants; I82.409 Acute embolism and thrombosis of unspecified deep veins of unspecified lower extremity | CPT/HCPCS: 36415; 85610 ==

== ENCOUNTER 2017-03-16 12:29 | Outpatient (CLI) | END 2017-03-16 12:30 | disposition home or self-care (01) | LOC: LAB 12:29 | PROVIDERS: ATTEND General Practice | DX: I82.A2 Chronic embolism and thrombosis of axillary vein (principal); I82.419 Acute embolism and thrombosis of unspecified femoral vein; I82.532 Chronic embolism and thrombosis of left popliteal vein; Z79.01 Long term (current) use of anticoagulants; K86.1 Other chronic pancreatitis; Z79.899 Other long term (current) drug therapy | CPT/HCPCS: 36415; 80053; 81001; 82150; 83690; 85025 ==

== ENCOUNTER 2017-03-19 12:02 | Outpatient (CLI) | END 2017-03-19 12:03 | disposition home or self-care (01) | LOC: LAB 12:02 | PROVIDERS: ATTEND General Practice | DX: Z51.81 Encounter for therapeutic drug level monitoring (principal); Z79.01 Long term (current) use of anticoagulants; I82.409 Acute embolism and thrombosis of unspecified deep veins of unspecified lower extremity | CPT/HCPCS: 36415; 85610 ==

== ENCOUNTER 2017-03-27 12:12 | Outpatient (CLI) | END 2017-03-27 12:13 | disposition home or self-care (01) | LOC: LAB 12:12 | PROVIDERS: ATTEND General Practice | DX: Z51.81 Encounter for therapeutic drug level monitoring (principal); Z79.01 Long term (current) use of anticoagulants; I82.409 Acute embolism and thrombosis of unspecified deep veins of unspecified lower extremity | CPT/HCPCS: 36415; 85610 ==

== ENCOUNTER 2017-04-03 09:16 | Outpatient (CLI) | END 2017-04-03 09:17 | disposition home or self-care (01) | LOC: LAB 09:16 | PROVIDERS: ATTEND General Practice | DX: Z51.81 Encounter for therapeutic drug level monitoring (principal); Z79.01 Long term (current) use of anticoagulants; I82.409 Acute embolism and thrombosis of unspecified deep veins of unspecified lower extremity | CPT/HCPCS: 36415; 85610 ==

== ENCOUNTER 2017-04-20 11:18 | Outpatient (CLI) | END 2017-04-20 11:19 | disposition home or self-care (01) | LOC: FCC-LAB 11:18 | PROVIDERS: ATTEND General Practice | DX: Z51.81 Encounter for therapeutic drug level monitoring (principal); Z79.01 Long term (current) use of anticoagulants; I82.532 Chronic embolism and thrombosis of left popliteal vein; I82.A2 Chronic embolism and thrombosis of axillary vein | CPT/HCPCS: 36415; 85610 ==

== ENCOUNTER 2017-05-11 14:36 | Outpatient (CLI) | END 2017-05-11 14:37 | disposition home or self-care (01) | LOC: LAB 14:36 | PROVIDERS: ATTEND General Practice | DX: Z51.81 Encounter for therapeutic drug level monitoring (principal); Z79.01 Long term (current) use of anticoagulants; I82.409 Acute embolism and thrombosis of unspecified deep veins of unspecified lower extremity | CPT/HCPCS: 36415; 85610 ==

== ENCOUNTER 2017-05-16 08:09 | Outpatient (CLI) | END 2017-05-16 08:10 | disposition home or self-care (01) | LOC: LAB 08:09 | PROVIDERS: ATTEND General Practice | DX: Z51.81 Encounter for therapeutic drug level monitoring (principal); Z79.01 Long term (current) use of anticoagulants; I82.532 Chronic embolism and thrombosis of left popliteal vein; I82.A2 Chronic embolism and thrombosis of axillary vein | CPT/HCPCS: 36415; 85610 ==

== ENCOUNTER 2017-05-23 11:25 | Inpatient (IN) ==
[2017-05-23] MEDS ORDERED: ROCEPHIN IM STA (11:57)
[2017-05-23] MEDS ORDERED: DECADRON 4 MG/ML SDV IM STA (11:57)
[2017-05-23] MEDS ORDERED: LIDOCAINE HCL 1% SDV IM STA (11:57)
--- NOTE | 2017-05-23 12:45 | CT ---
EXAM: CT chest without contrast. HISTORY: Cough. COMPARISON: 07/17/2016. TECHNIQUE: Multiple axial images of the chest were obtained without intravenous contrast. Images we re reformatted in the sagittal and coronal planes. FINDINGS: Double aortic arch noted. Heart size is normal. No pericardial effusion identified. Liz luation for lymphadenopathy is limited by lack of intravenous contrast. Emphysematous changes present bilaterally. Calcified granulomatous changes are present. Mucus prese nt in the right main bronchus/bronchus intermedius. There are endobronchial filling defects in the l eft lower lobe with mild associated consolidation. Left apical scarring is stable. No pleural effus ion or pneumothorax identified. Limited images of the upper abdomen demonstrate no acute abnormality. IMPRESSION: Left lower lobe endobronchial filling defects with adjacent consolidation may represent mucus pluggin g with atelectasis or pneumonia. Follow up within 3 months recommended for reassessment.
[2017-05-23] MEDS ORDERED: NITROSTAT SL PRN (13:27)
[2017-05-23] MEDS ORDERED: SODIUM CHLORIDE 1,000 ML IV STA (13:29)
[2017-05-23] MEDS ORDERED: COUMADIN PO SCH (13:30)
--- NOTE | 2017-05-23 13:30 | ED.PDOC ---
General ED Provider: Dr. SOTERO KOVACS Chief Complaint: Cough Stated Complaint: cough Time Seen by Physician: 11:30 Mode of Arrival: Wheelchair Information Source: Patient Exam Limitations: No limitations [facility] Nursing and Triage Documentation Reviewed and Agree: Yes Reviewed sepsis parameters & appropriate labs ordered?: Yes System Inflammatory Response Syndrome: Not Applicable Sepsis Protocol: For patient's 13 years and over: Temp is 96.8 and below OR 101 and greater Pulse >90 BPM Resp >20/minute Acutely Altered Mental Status Are patient's symptoms suggestive of a new infection, such as: -Pneumonia -Skin, Soft Tissue -Endocarditis -UTI -Bone, Joint Infection -Implantable Device -Acute Abdominal Infection -Wound Infection -Meningitis -Blood Stream Catheter Infection -Unknown System Inflammatory Response Syndrome: Not Applicable Respiratory Complaint Exam - Respiratory Complaint/Exam Onset/Duration: cough some what productive chest pain with cough x 3 days Symptoms Are: Still present Timing: Intermittent Initial Severity: Mild Current Severity: Mild Location: Nose, Throat, Chest Character: Reports: Non-productive cough Aggravating: Reports: None Alleviating: Reports: Upright position, Spontaneous resolution Associated Signs and Symptoms: Reports: Chills, URI, Nasal congestion, Sore throat. Denies: Rapid breathing, Dyspnea, Fever, Chest pain, Pleuritic chest pain, Wheezing, Hemoptysis, Dizziness, Calf pain, Calf swelling, Edema, Hoarseness, Sinus discomfort, Vomiting, Weight loss, Decreased oral intake, Increased thirst, Increased appetite, Increased urination Related History: Reports: Similar episode History of Healthcare-Acquired Pneumonia: No Related Surgical History: Reports: None Cardiac Risk Factors: Reports: Prior [place] (DVT HAS FILTER), CAD, Hypertension Pseudomonas Risk Factors: Reports: None Tuberculosis Risk Factors: Reports: None Status Asthmaticus Risk Factors: Reports: None Home Oxygen Use: No Recent Stress Test: No Recent Echo/LV Function: No Current Antibiotic Use: No Current Asthma Medication Use: No Respiratory Distress: None Inadequate Respiratory Effort: No Dysphagia Present: No Stridor Present: No JVD Present: No Accessory Muscle Use: No Retractions: Not Present Diminished Breath Sounds: No Sinus Tenderness: None Grunting Respirations: No Kussmaul Respirations: No Differential Diagnoses: Pneumonia, Bronchitis Quality Indicators For Pneumonia: Antibiotics in 6hr-admit, SpO2 assessed, Empiric Antibiotic Rx, Vital signs, Mental status assessed Non-Traumatic Chest Pain Syncope: EKG Performed Review of Systems - Review Of Systems Constitutional: Reports: Malaise, Weakness Eyes: Reports: No symptoms Ears, Nose, Mouth, Throat: Reports: No symptoms Respiratory: Reports: Cough Cardiac: Reports: Chest pain GI: Reports: No symptoms : Reports: No symptoms Musculoskeletal: Reports: No symptoms Skin: Reports: No symptoms Neurological: Reports: No symptoms Endocrine: Reports: No symptoms Hematologic/Lymphatic: Reports: No symptoms All Other Systems: Reviewed and Negative Past Medical History - Past Medical History Previously Healthy: No Endocrine: Reports: None Cardiovascular: Reports: [place], Hypertension, DVT (BILATERAL LEGS) Respiratory: Reports: PE (RIGHT LUNG ), Other (TB, ) Hematological: Reports: None Gastrointestinal: Reports: Pancreatitis (alcoholism) Genitourinary: Reports: None Neuro/Psych: Reports: Migraine Musculoskeletal: Reports: None Cancer: Reports: None Other Pertinent Past Medical History: right hand heart cath without stents blood clot filter - Surgical History General Surgical History: Reports: None, Heart Cath, Orthopedic (right hand ), Other (heart cath without stents, blood clot filter). Denies: Stent - Family History Family History: Reports: None - Social History Smoking Status: Current every day smoker, Light tobacco smoker Hx Substance Use: No Alcohol Screening: Occasionally Physical Exam - Physical Exam Appearance: Ill-appearing Ill-appearing: Mild Pain Distress: Mild Eyes: MERCED, EOMI, Conjunctiva clear ENT: Ears normal, Nose normal, Oropharynx normal Respiratory: Rhonchi Cardiovascular: RRR, Pulses normal, No rub, No murmur GI/: Soft, Nontender, No masses, Bowel sounds normal, No Organomegaly Musculoskeletal: Normal strength, ROM intact, No edema, No calf tenderness Skin: Warm, Dry, Normal color Neurological: Sensation intact, Motor intact, Reflexes intact, Cranial nerves intact, Alert, Oriented Psychiatric: Affect appropriate, Mood appropriate Interpretation - Radiology Interpretation Radiology Interpretation By: Radiologist Radiology Results: Positive (INFILTRATE LLL) - Checker Rate: Normal Rhythm: Sinus Ectopy: None - EKG Interpretation Rate: Normal Rhythm: Sinus Ectopy: None [place]: NL ST Segment: Normal Physician Notification - Case Discussed Physician Notified: PMD Time of Notification: 13:32 Admit To: Inpatient Critical Care Note - Critical Care Note Total Time (mins): 0 Course - Course Hematology/Chemistry: 05/23/17 12:07 05/23/17 12:07 Orders, Labs, Meds: Lab Review 05/23/17 05/23/17 12:07 12:07 WBC 4.74 RBC 4.12 L Hgb 12.6 L Hct 36.4 L MCV 88.3 MCH 30.6 MCHC 34.6 RDW Coeff of Kristine 16.4 H Plt Count 243 Immature Gran % (Auto) 0.2 Neut % (Auto) 52.8 Lymph % (Auto) 32.9 Hale % (Auto) 12.4 H Eos % (Auto) 1.3 Baso % (Auto) 0.4 Immature Gran # (Auto) 0.0 Neut # (Auto) 2.5 Lymph # (Auto) 1.6 Hale # (Auto) 0.6 Eos # (Auto) 0.1 Baso # (Auto) 0.0 Sodium 141 Potassium 3.9 Chloride 108 H Carbon Dioxide 21 L Anion Gap 15.9 BUN 14 Creatinine 0.78 Estimated GFR (MDRD) 123.00 BUN/Creatinine Ratio 17.94 Glucose 99 Calcium 9.5 Total Bilirubin 0.9 AST 20 ALT 10 L Alkaline Phosphatase 71 Total Creatine Kinase 186 CK-MB (CK-2) 2.1 CK-MB (CK-2) % 1.83536 Troponin I 0.0130 Total Protein 7.5 Albumin 3.7 Globulin 3.8 Albumin/Globulin Ratio 0.97 Orders Category Date Time Status EKG-(ED ONLY) Stat CARDIO 05/23/17 11:58 Completed CBC W/ AUTO DIFF Stat LAB 05/23/17 12:07 Completed COMPREHENSIVE METABOLIC PANEL Stat LAB 05/23/17 12:07 Completed CREATINE KINASE Stat LAB 05/23/17 12:07 Completed TROPONIN I Stat LAB 05/23/17 12:07 Completed Ceftriaxone Sodium [Rocephin] MEDS 05/23/17 11:57 Discontinued 1 gm IM ONCE STA Dexamethasone 4 mg/ml Inj [Decadron 4 mg/ml Sdv] MEDS 05/23/17 11:57 Discontinued 8 mg IM ONCE STA Lidocaine HCl/Pf [Lidocaine HCl 1% Sdv] MEDS 05/23/17 11:57 Discontinued 2.1 ml IM ONCE STA CT CHEST W/O CONTRAST Stat RADS 05/23/17 11:56 Completed Medications Discontinued Medications Generic Name Dose Route Start Last Admin Trade Name Freq PRN Reason Stop Dose Admin Ceftriaxone Sodium 1 gm 05/23/17 11:57 05/23/17 12:37 Rocephin IM 05/23/17 11:58 1 gm ONCE STA Administration Dexamethasone Sodium Phosphate 8 mg 05/23/17 11:57 05/23/17 12:37 Decadron 4 Mg/Ml Sdv IM 05/23/17 11:58 8 mg ONCE STA Administration Lidocaine HCl 2.1 ml 05/23/17 11:57 05/23/17 12:37 Lidocaine Hcl 1% Sdv IM 05/23/17 11:58 2.1 ml ONCE STA Administration Vital Signs: Temp Pulse Resp BP Pulse Ox 05/23/17 11:26 98 F 80 16 154/103 H 97 Departure - Departure Time of Disposition: 13:33 Disposition: ADMITTED INPATIENT Discharge Problem: Cough Pneumonia Qualifiers: Pneumonia type: due to unspecified organism Lung location: lower lobe of lung Instructions: Pneumonitis (ED) Condition: Good Pt referred to PMD for follow-up: Yes IPMP verified?: No Additional Instructions: Please call your Family Physician as soon as possible to schedule a follow-up appointment. Allergies/Adverse Reactions: Allergies apixaban [From Eliquis] Allergy (Unknown, Verified 05/23/17 11:35) Unknown patient claims he did not tolerate the medication. Specifics are unknown. Penicillins Adverse Reaction (Severe, Verified 05/23/17 11:35) Anaphylaxis swelling in throat moxifloxacin [From Avelox] Adverse Reaction (Intermediate, Verified 05/23/17 11: 35) Itching ITCHING AT IV SITE Penicillins Adverse Reaction (Severe, Uncoded 05/23/17 11:35) Anaphylaxis swelling in throat Home Medications: Ambulatory Orders Tiotropium [place] [Spiriva] 18 mcg IH DAILY #30 av 05/25/15 Omeprazole Magnesium [Prilosec] 20 mg PO DAILY tab-cap 01/13/16 Warfarin Sodium [Coumadin] 7 mg PO EVERY OTHER DAY 09/05/16 Latanoprost [Xalatan] 1 drop OP BEDTIME 09/06/16 Disposition Discussed With: Patient
[2017-05-23 14:54] VITALS: BMI 22.1
[2017-05-23] MEDS: COUMADIN PO SCH (16:18)
[2017-05-23] MEDS: ZITHROMAX 500 MG in SODIUM CHLORIDE 250 ML IV SCH (16:21)
[2017-05-23] MEDS: DUONEB NEB SCH ×2 (16:58→22:10)
[2017-05-23] MEDS: CREON DR 12,000 UNITS CAPSULE PO SCH (17:05)
[2017-05-23] MEDS: XALATAN OP SCH (20:38)
[2017-05-24] MEDS: DUONEB NEB SCH ×3 (04:44→22:05)
[2017-05-24] MEDS ORDERED: NON-FORMULARY MEDICATION (Warfarin Sodium [Coumadin] 6 MG) PO SCH (09:00)
[2017-05-24] MEDS: ROCEPHIN 1 GM in SODIUM CHLORIDE 50 ML IV SCH (09:33)
[2017-05-24] MEDS: ZESTRIL PO SCH (09:33)
[2017-05-24] MEDS: CREON DR 12,000 UNITS CAPSULE PO SCH ×3 (09:33→17:39)
[2017-05-24] MEDS: SPIRIVA IH SCH (09:34)
[2017-05-24] MEDS: ZITHROMAX 500 MG in SODIUM CHLORIDE 250 ML IV SCH (10:26)
--- NOTE | 2017-05-24 11:56 | HP ---
CHIEF COMPLAINT: Sensation of pressure on the middle and left anterior chest, cough and chilly sensation. SOURCE OF HISTORY: Patient. HISTORY OF PRESENT ILLNESS: The patient claimed that he noted or experienced cough some three to four days prior to this examination. He complained of chest tightness or pressure sensation on the left chest, as well as towards the middle with no diaphoresis or nausea. The patient while at the office claimed that he has the chest heaviness. Because of the above, the patient was directed to the emergency room for further work-up. The patient was agreeable and the patient after a workup in the emergency room was found to have left lower lobe atelectasis versus pneumonia with left lower lobe endobronchial filling defects, probably mucus. WBC was normal, except slight to moderate anemia. PT nontherapeutic. CMP unremarkable. The patient was then admitted with a diagnosis of left lower lobe pneumonitis. Troponin and CK were normal in the emergency room. PAST PERSONAL HISTORY: He was admitted to [place] 09/06/2016 because of DVT. He was complaining of pain in the left lower leg then. The patient has a history of venous thrombosis in both legs in 1979. Myocardial infarction in 1984, cardiac catheterization in 1987, pulmonary emboli about 4 years ago. Umbrella was inserted in [place]. The patient also had a history of left upper lobe consolidation with cavitation and was seen by a filtration supervisor in [place] and was treated as a fungal infection. He also had a history of pneumonia in 2011. He had GI bleed in 2007. History of pancreatitis secondary to alcohol and the patient has a persistent elevation of serum amylase and lipase. This is probably due to the fact that this patient still drinks alcohol. The patient did tell me in front of his that he had not drank anything for the last two weeks, except last Sunday where he drank more than 6 cans a beer a day at his sister's house. I was asking the whether that was true that he had not drank any and the told me not to ask her. The patient denies any abdominal pain or epigastric pain today. FAMILY HISTORY: Father has mesothelioma and of myocardial infarction in 1965. Mother had history of heart disease and in 2006. He had seven brothers and five are still alive. One brother had congenital heart disease at and four brothers has history of seizures. SOCIAL HISTORY: The patient is and resides with his . He had been unemployed and had been for sometime. He does continue to smoke. He claims that he only drank last Sunday, but had no alcohol for about two weeks prior to that. I reminded him that he could not drink alcohol because of pancreatitis. He does not have any tremors today and his last alcohol was Sunday. This patient had a colonoscopy and endoscopy last week. His Coumadin was discontinued prior to that colonoscopy. HOME MEDICATIONS: Spiriva 18 mcg one inhalation daily Nitroglycerin 0.4 mg SL prn Prilosec 20 mg daily Xalatan one drop to both eyes at bedtime Creon 12,000 Unit capsule, one capsule before meals Warfarin 6 mg daily Lisinopril 10 mg daily Nystatin oral suspension 5 cc cup twice a day ALLERGIES: Eliquis, Penicillin, Moxifloxacin NOTE: We need to get the results of the endoscopy and colonoscopy. REVIEW OF SYSTEMS: CONSTITUTIONAL: The patient has chilly sensation, but chills or fever. He is somewhat tired. PATIENT FLOW COORDINATOR: The patient had seizure history, but had not had any seizures in last few years. Brothers also had seizure disorders. He denies any ataxia and no syncopal episodes and no headaches. VISUAL: The patient denies any blurred vision, double vision or transient loss of vision. AUDITORY: Hearing is good and denies any tinnitus, pain or drainage. RESPIRATORY: The patient has cough, mostly nonproductive and had been for the last three to four days. He denies any hemoptysis. No shortness of breath. CARDIOVASCULAR: The patient has sensation of heaviness more on the left anterior chest. It is also felt in the sternal area. No diaphoresis and no significant weakness and no nausea or vomiting. GASTROINTESTINAL: The patient has no nausea, anorexia or dysphagia. He denies any abdominal pain. No diarrhea. 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 GENITOURINARY: Denies any pain on urination or frequency. MUSCULOSKELETAL: Denies any significant pain anywhere in his body. ENDOCRINE: Negative. INTEGUMENT: Denies any rash or pruritus. HEMATOLOGIC: Negative for any history of prolonged bleeding. PSYCHIATRIC: Affect is normal. PHYSICAL EXAMINATION: GENERAL: We have a 61 year old black male admitted to the hospital because cough , heaviness on the left side of the chest. The patient was noted to have a left lower lobe pneumonitis, which probably explains his problem. VITAL SIGNS: The patient on admission to the floor had the following vital signs , pulse 65, blood pressure 150/90, respiratory rate 20, oxygen saturation 97 on room air. The patient weighed 128 pounds and 15 ounces on the floor and was weighed at 124 in the emergency room. The emergency and the hospital scales has discrepancies. I had mentioned this previously, but that has not been corrected. HEAD: Unremarkable. The scalp with no active dermatitis. FACE: Symmetrical and equal with no facial weakness. No remarkable tenderness in the frontal or maxillary sinus areas to palpation under pressure. EYES: Pupils equal/reactive to light. Conjunctivae not pale. Sclerae not icteric. MOUTH: Unremarkable. THROAT: No inflammation, tumors or exudate. NECK: No masses. No bruit. No tenderness. No rigidity. CHEST: Symmetrical and equal with good expansion and no significant tenderness. LUNGS: Breath sounds are diminished in both sides with wheezing, inspiratory and expiratory wheeze left posterior chest field. HEART: Audible and regular with good tones. No murmurs. ABDOMEN: Flat, soft with no remarkable tenderness. No guarding. No masses palpable. Bowel sounds are active and no bruit. EXTERNAL GENITALIA: Not examined. RECTAL: Not performed. This patient had a colonoscopy last week. LOWER EXTREMITIES: Essentially symmetrical and equal with no edema. No tenderness in the calf muscles. Tibial pulses are present, but diminished. UPPER EXTREMITIES: Symmetrical and equal. ASSESSMENT: 1. LEFT LOWER LOBE PNEUMONITIS 2. HISTORY OF CHRONIC PANCREATITIS 3. HISTORY OF CHRONIC ALCOHOL USE AND ABUSE, PERSISTENT 4. HISTORY OF CHRONIC TOBACCO USE AND ABUSE, PERSISTENT 5. HISTORY OF DVT, TWICE 6. HISTORY OF PULMONARY EMBOLI TREATED WITH INFERIOR VENA CAVA FILTER 7. HISTORY OF MYOCARDIAL INFARCTION TIMES TWO 8. HISTORY OF LEFT UPPER LOBE CONSOLIDATION AND CAVITATION, FUNGAL. TREATED BY A SECURITY OPERATIONS ANALYST. DAIJA
[2017-05-24] MEDS: D5%-1/2NS-KCL 20 MEQ/L IV SOL 1,000 ML IV SCH (13:00)
[2017-05-24] MEDS: VITAMIN B-12 IM SCH (13:00)
[2017-05-24] MEDS: THIAMINE IM SCH (13:00)
[2017-05-24] MEDS: COUMADIN PO SCH (17:39)
[2017-05-24] MEDS: XALATAN OP SCH (20:15)
[2017-05-25] MEDS: D5%-1/2NS-KCL 20 MEQ/L IV SOL 1,000 ML IV SCH ×2 (00:34→20:46)
[2017-05-25] MEDS: DUONEB NEB SCH ×4 (04:54→20:45)
--- NOTE | 2017-05-25 08:02 | PN ---
DATE OF VISIT: 05/24/17 SUBJECTIVE: 61 year old black male is alert and responsive, cooperative and cheerful. VITAL SIGNS: Temperature 98 orally, pulse 79, blood pressure 136/80, respiratory rate 20 and no oxygen saturation done. He had one done earlier at 9:23am and was 99%. He did eat 100% of his lunch. LUNGS: Minimal wheezing at the left sides. Breath sounds are all diminished HEART: Audible with good tones ABDOMEN: Soft and nontender CONDITION: Stable. PLAN: 1. Continue the same regimen of Ceftriaxone and Azithromycin MTDD
[2017-05-25] MEDS ORDERED: COUMADIN PO SCH ×2 (09:00)
[2017-05-25] MEDS: SPIRIVA IH SCH (09:17)
[2017-05-25] MEDS: THIAMINE IM SCH (09:21)
[2017-05-25] MEDS: ZESTRIL PO SCH (09:21)
[2017-05-25] MEDS: CREON DR 12,000 UNITS CAPSULE PO SCH ×3 (09:21→17:26)
[2017-05-25] MEDS: VITAMIN B-12 IM SCH (09:22)
[2017-05-25] MEDS: ROCEPHIN 1 GM in SODIUM CHLORIDE 50 ML IV SCH (09:23)
[2017-05-25] MEDS: ZITHROMAX 500 MG in SODIUM CHLORIDE 250 ML IV SCH (10:22)
[2017-05-25] MEDS: COUMADIN PO SCH (17:26)
[2017-05-25] MEDS ORDERED: TYLENOL PO STA (19:46)
[2017-05-25] MEDS: XALATAN OP SCH (20:46)
[2017-05-26] MEDS: DUONEB NEB SCH ×4 (05:10→20:45)
[2017-05-26] MEDS: SPIRIVA IH SCH (09:46)
[2017-05-26] MEDS: ROCEPHIN 1 GM in SODIUM CHLORIDE 50 ML IV SCH (09:46)
[2017-05-26] MEDS: D5%-1/2NS-KCL 20 MEQ/L IV SOL 1,000 ML IV SCH ×2 (09:46→14:35)
[2017-05-26] MEDS: THIAMINE IM SCH (09:47)
[2017-05-26] MEDS: ZESTRIL PO SCH (09:47)
[2017-05-26] MEDS: VITAMIN B-12 IM SCH (09:47)
[2017-05-26] MEDS: CREON DR 12,000 UNITS CAPSULE PO SCH ×3 (09:52→16:41)
[2017-05-26] MEDS ORDERED: COUMADIN PO SCH (13:30)
[2017-05-26] MEDS: COUMADIN PO SCH (16:41)
[2017-05-26] MEDS: XALATAN OP SCH (20:47)
[2017-05-26] MEDS ORDERED: TYLENOL ONE (21:41)
[2017-05-26] MEDS: TYLENOL PO PRN (21:45)
[2017-05-27] MEDS: D5%-1/2NS-KCL 20 MEQ/L IV SOL 1,000 ML IV SCH ×2 (00:10→12:33)
[2017-05-27] MEDS: DUONEB NEB SCH ×4 (06:08→19:50)
[2017-05-27] MEDS: ROCEPHIN 1 GM in SODIUM CHLORIDE 50 ML IV SCH (09:27)
[2017-05-27] MEDS: VITAMIN B-12 IM SCH (09:28)
[2017-05-27] MEDS: TYLENOL PO PRN (09:29)
[2017-05-27] MEDS: THIAMINE IM SCH (09:29)
[2017-05-27] MEDS: ZESTRIL PO SCH (09:30)
[2017-05-27] MEDS: CREON DR 12,000 UNITS CAPSULE PO SCH ×3 (09:30→16:42)
[2017-05-27] MEDS: SPIRIVA IH SCH (09:31)
[2017-05-27] MEDS: COUMADIN PO SCH (16:42)
[2017-05-27] MEDS: XALATAN OP SCH (20:18)
--- NOTE | 2017-05-27 22:11 | CT ---
EXAM: CT brain without contrast HISTORY: Headache TECHNIQUE: CT of the brain without intravenous contrast FINDINGS: There is no acute hemorrhage midline shift or mass effect. No hydrocephalus or abnormal e xtra-axial fluid collection. Generalized involutional atrophy, moderate. Chronic microvascular mtz ges of the white matter tracts, mild. No acute large vessel territorial infarct is seen. The bony c ranium appears normal. The visualized paranasal sinuses are clear. Soft tissues without significant a bnormality. IMPRESSION: 1. Chronic changes as described. No acute intracranial abnormality is seen.
[2017-05-28] MEDS: D5%-1/2NS-KCL 20 MEQ/L IV SOL 1,000 ML IV SCH ×2 (00:55→13:11)
[2017-05-28] MEDS: DUONEB NEB SCH ×4 (05:14→19:20)
[2017-05-28] MEDS: SPIRIVA IH SCH (09:01)
[2017-05-28] MEDS: CREON DR 12,000 UNITS CAPSULE PO SCH ×3 (09:02→18:29)
[2017-05-28] MEDS: ZESTRIL PO SCH (09:03)
[2017-05-28] MEDS: ROCEPHIN 1 GM in SODIUM CHLORIDE 50 ML IV SCH (09:03)
[2017-05-28] MEDS: TYLENOL PO PRN (09:07)
[2017-05-28] MEDS: THIAMINE IM SCH (09:08)
[2017-05-28] MEDS: VITAMIN B-12 IM SCH (09:10)
--- NOTE | 2017-05-28 11:30 | DI ---
EXAM: Chest two views HISTORY: Follow up pneumonia COMPARISON: 02/07/2017 TECHNIQUE: Two views of the chest were performed FINDINGS: The lungs are clear. There is no pleural effusion or pneumothorax. The heart is normal i n size. The mediastinal contour is unchanged with double aortic arch noted on CT.. There are no acu te abnormalities of the bones. IMPRESSION: No acute cardiopulmonary process identified by radiograph. CT follow-up recommended in 3 months as described on CT chest 05/23/2017
--- NOTE | 2017-05-28 17:52 | CT ---
Exam: CT scan of the abdomen pelvis without contrast. Date: 05/28/2017. Comparison: 09/12/2016. HISTORY: Abdominal pain. TECHNIQUE: Helical scan of the abdomen pelvis was performed without contrast. FINDINGS: The lung bases are clear with granulomatous calcifications. There is scarring in the post erior basilar segment left lower lobe. Multilevel degenerative changes are present in the lumbar spi ne. The bony pelvis is within normal limits. There is a 0.8 cm umbilical defect with a small fat filled hernia. Granulomatous calcifications are present in the spleen. The spleen and liver have a uniform attenuation. The stomach is normal. The re is dilatation of the main pancreatic duct, measuring up to 0.8 cm which extends down to a group of calcifications in the head of the pancreas. The adrenal glands are normal. The kidneys have a norm al morphology. No calculi or hydronephrosis is seen. Vena cava filter is present. No retroperitone al adenopathy is seen. Aorta has peripheral calcification and does not exceed 3 cm. The small bowel and appendix are normal. The colon, pelvic sidewall and bladder are normal. There is no free pelvi c fluid. The prostate, rectum and inguinal regions are normal. Impression: No acute findings probably no significant change from 09/12/2016, given the lack of intr avenous contrast enhancement. There is stable dilatation of the main pancreatic duct with pancreatic calcifications in the head of the pancreas, compatible with chronic pancreatitis. Vena cava filter. ASVD. Old granulomatous disease.
[2017-05-28] MEDS: COUMADIN PO SCH (18:28)
[2017-05-28] MEDS: XALATAN OP SCH (20:25)
[2017-05-28] MEDS: PROTONIX IV IVP SCH (22:27)
[2017-05-29] MEDS: D5%-1/2NS-KCL 20 MEQ/L IV SOL 1,000 ML IV SCH ×2 (04:44→17:15)
[2017-05-29] MEDS: DUONEB NEB SCH ×4 (05:25→22:23)
[2017-05-29] MEDS: ROCEPHIN 1 GM in SODIUM CHLORIDE 50 ML IV SCH (10:27)
[2017-05-29] MEDS: CREON DR 12,000 UNITS CAPSULE PO SCH ×3 (10:27→17:15)
[2017-05-29] MEDS: ZESTRIL PO SCH (10:32)
[2017-05-29] MEDS: THIAMINE IM SCH (10:33)
[2017-05-29] MEDS: VITAMIN B-12 IM SCH (10:35)
[2017-05-29] MEDS: SPIRIVA IH SCH (10:39)
[2017-05-29] MEDS: PROTONIX IV IVP SCH (10:40)
--- NOTE | 2017-05-29 14:47 | PN ---
DATE OF VISIT: 05/25/17 SUBJECTIVE: The patient is alert, oriented times four, not dyspneic or tachypneic and afebrile. OBJECTIVE: Vital signs this morning at 10 a.m.: Temperature 98.6, pulse 81, BP 143/62, respiratory rate 12, oxygen saturation 99. This patient was seen at noontime today. NECK: No mass, no bruit. LUNGS: Breath sounds are heard better. There is no wheezing now in the left posterior chest wall which was present previously. No rales. HEART: Normal sinus rhythm. ABDOMEN: Nontender. PLAN: This patient was advised to drink more liquids since he has some endobronchial mucus. I also advised him to cough and try to cough it out. Will probably give him some Mucinex 1200 LA twice a day. Hopefully it will liquify the mucus and could bring it out. I told him that he needs to stop smoking and he told me he would. My experience in the past is that he doesn't follow through what he promised to do. DAIJA
--- NOTE | 2017-05-29 14:58 | PN ---
DATE OF VISIT: 05/27/17 SUBJECTIVE: The patient today is alert, no distress. He denies any chest pain. He has a little bit of abdominal discomfort in the upper abdomen. OBJECTIVE: At 4:16 p.m. vital signs: temperature 97.9, pulse 84, blood pressure 140/89, respiratory rate 18, oxygen saturation 98 on room air. The patient ate 100% of his dinner. LABS TODAY: White count 5.36, hemoglobin 12.5, hematocrit 38, MCV 93.4, MCH 30.7, RDW 17.6. PT 1.66. Coumadin was reduced to 5 mg and he had a remarkable increase of the INR from 1.29 05/23/17 and on 05/25/17 2.11 INR. Electrolytes normal. AST and ALT slightly elevated. It was normal on admission. Amylase 295 and was 128 on . Lipase 617 from 242. Lungs have coarse breath sounds on the left and no wheezing. There are no rales. Breath sounds are diminished. This patient was advised never to smoke again and never to drink alcohol. This patient has chronic pancreatitis and is on Creon. This patient however always tells you "yes, that he will not do it" but he persists to. He has still been drinking. I asked the if he is drinking and the is noncommittal. I had more or less repeatedly advised him not to drink and did advise him about the consequences of his drinking. He already has an established consequence of the drinking and that it is necessary for him to stop as patient had previous DVT and pulmonary emboli but has a filter. I am wondering if he probably should just stop the Coumadin. I would need to look at the records when the filter was inserted in [place] and what was the instruction then. DAIJA
--- NOTE | 2017-05-29 15:02 | PN ---
DATE OF VISIT: 05/28/17 SUBJECTIVE: The patient is alert, oriented times one, not dyspneic or tachypneic. He is complaining more of the abdominal discomfort in the upper abdomen with some tenderness. Bowel sounds are active. No muscular guarding. This patient is known to have chronic pancreatitis. I ordered a CBC, Serum Lipase and Amylase and also CT scan of the abdomen and pelvis without contrast. The patient's lungs have no rales but diminished. Heart is audible with good tones. Abdomen is slightly protuberant with some tenderness more in the upper abdome, slightly more in the right upper quadrant. The bowel sounds are active. He does not have any pain or tenderness in the legs. This may be secondary to exacerbation of his chronic pancreatitis. I will probably put him on a low fat diet and see what happens. His white count is normal. Will repeat PT tomorrow as well as serum amylase and lipase, reduce his diet to low fat. DAIJA
[2017-05-29] MEDS: COUMADIN PO SCH (17:14)
[2017-05-29] MEDS ORDERED: DILAUDID 1 MG/ML SYRINGE IVP PRN (20:21)
[2017-05-29] MEDS ORDERED: DILAUDID 1 MG/ML SYRINGE ONE (20:24)
[2017-05-29] MEDS: DILAUDID 1 MG/ML SYRINGE IVP PRN (20:29)
[2017-05-29] MEDS: XALATAN OP SCH (21:00)
[2017-05-30] MEDS: DILAUDID 1 MG/ML SYRINGE IVP PRN ×2 (03:06→08:45)
[2017-05-30] MEDS: DUONEB NEB SCH ×3 (04:43→14:07)
[2017-05-30] MEDS: D5%-1/2NS-KCL 20 MEQ/L IV SOL 1,000 ML IV SCH (05:34)
[2017-05-30] MEDS: PROTONIX IV IVP SCH (08:44)
--- NOTE | 2017-05-30 08:45 | PN ---
DATE OF VISIT: 05/29/17 SUBJECTIVE: This is patient is complaining of more pain in the upper abdomen. He has voluntary guarding. The bowel sounds are active and present. CAT scan of the abdomen without contrast was done yesterday 05/28/17. No acute findings, no significant change from 09/12/16. This patient was noted to have dilatation of the main pancreatic duct with pancreatic calcification of the head of the pancreas. The findings were compatible with chronic pancreatitis. This patient is known to have chronic pancreatitis. The patient's PT today is 17.1 and INR 1.74. We will continue his 5mg. Serum amylase and lipase today; amylase is now 338 from 300 and lipase is 648 from 574 yesterday. It has been elevated ever since admission. The patient had lipase on the outpatient bases as high as 600 previously. This patient has been drinking alcohol. He had been advised of this and the advise was repeated today. The patient was present during the course of the conversation that he should absolutely not be drinking any alcohol at all of any kind and of any amount. He is kept NPO except for this medications. PROGNOSIS: Guarded. MTDD
--- NOTE | 2017-05-30 09:29 | PN ---
DATE OF VISIT: 05/26/17 SUBJECTIVE: The patient is alert and ambulatory with no chest pain or abdominal pain. He did complain of some headache. Headache is more at night. He doesn't seem to have any tremors at all to signify any alcohol withdraw. It had been 6 days since the last time he had alcohol. VITALS: Temperature 97.8, pulse probably 79 but was recorded at 792, blood pressure 127/ 85, oxygen saturation 98% at room air. LUNGS: Diminished breath sounds but no rales or wheezing. HEART: Normal sinus rhythm The patient did eat 75%of his lunch today. The patient's serum amylase and lipase had been elevated and been chronically elevated. This patient was advised to stop drinking and he persists on drinking which is probably the reason for the persistent elevation of the amylase and lipase. A repeat serum Amylase and Lipase maybe requested for tomorrow. His PT today was 2.11 from 1.29 INR. The Coumadin is then decreased from 6 to 5mg with ProTime tomorrow. MTDD
[2017-05-30] MEDS: SPIRIVA IH SCH (09:32)
[2017-05-30] MEDS: ROCEPHIN 1 GM in SODIUM CHLORIDE 50 ML IV SCH (09:32)
[2017-05-30] MEDS: CREON DR 12,000 UNITS CAPSULE PO SCH ×2 (09:33→12:43)
[2017-05-30] MEDS: THIAMINE IM SCH (09:33)
[2017-05-30] MEDS: ZESTRIL PO SCH (09:33)
[2017-05-30] MEDS: VITAMIN B-12 IM SCH (09:34)
[2017-05-30 09:42] VITALS: BP 139/84; TEMP 97.5
--- NOTE | 2017-05-31 10:51 | PN ---
DATE OF VISIT: 05/30/17 The patient is smiling today and claims the pain in his abdomen is less. The abdomen indeed is softer. Bowel sounds are active. His CBC showed normal WBC 6 ,780. Stable hemoglobin and hematocrit at 12.8 and 37.3. INR today is 1.76 and 1.74 yesterday. Blood sugar is slightly elevated at 126, serum amylase is 166 from 338 yesterday and lipase is 213 from 648 yesterday. This patient was kept NPO and was given fluids and electrolytes for replacement. The patient was asking whether he can home today. He will be given a trial of tea, jello and soda crackers at noon and see what happens. I had repeated to him that he should not be drinking any drops of alcohol in front of his . It seemed like he is not taking it in quite seriously. He already has a chronic pancreatitis and will probably have a constant recurrence of the problem if he continues to drink. Doni's vital signs this morning at 9:42 showed a temperature of 97.5, pulse 84 , blood pressure 139/84, respiratory rate 20, oxygen saturation 96 at room air. DAIJA
--- NOTE | 2017-05-31 15:19 | DS ---
PATIENT IDENTIFICATION: 61 year old black male admitted to the hospital because of left lower pneumonitis. The patient initially came to the office complaining of pressure sensation in the middle and left anterior chest with cough and chilly sensations without nausea or diaphoresis. He was directed to the emergency room for better evaluation. The patient while in the emergency room was noted to have a left lower lobe pneumonitis on CT. He also had endobronchial filling defects. Most likely mucus. Repeat CT in three months was recommended. HOSPITAL COURSE: LUNGS: The patients lungs has diminished breath sounds in both sides with inspiratory and expiratory wheeze on the left posterior chest field. HEART: Audible and regular. The patient had been diagnosed with chronic pancreatitis and was advised to never drink. However, the patient admitted to drinking two days ago, more than six cans of beer. He still also smokes. The patient's serum amylase and lipase were monitored on the outpatient basis and they were always elevated. The patient was continued on his home medications, except the Nystatin oral suspension. The patient was medicated with Ceftriaxone 1 gram IV daily. Although he was started with 1 gram IM in the emergency room. Azithromycin 500 mg IV daily for three days. The patient while in the hospital remained alert, oriented times four and no dyspnea or tachypnea and chest pain. The wheezing has gradually resolved. The chest x-ray done 05/28/2017 showed no infiltrates. This was communicated to the patient. The patient on 05/29/2017 complained more of abdominal pain, mostly on the upper with fullness. His serum amylase and lipase were more elevated than the day before. His serum amylase and lipase were elevated on the day of admission. The patient was then kept NPO and continued IV and Dilaudid 1 mg was given every 4 hours prn for pain. The patient on 05/30/2017 claimed that he is much better. He no longer has the bloating or fullness and the pain is much less. His serum amylase and lipase were much lower than the day before. The amylase now is 166 from 338 yesterday and lipase 213 from 648 the day before. LUNGS: Clear to auscultation. HEART: Audible and regular with good tones. VITAL SIGNS: Before discharge at 9:42 a.m. showed a temperature of 97.5 orally , pulse of 84, blood pressure 139/84, respiratory rate 20, oxygen saturation 96 at room air. This patient was given tea, jello and soda crackers at noon and the patient did not have any exacerbation of the pain. The patient was then discharged early afternoon and the patient was instructed to eat only tea, jello, soda crackers, toast with jelly and baked potato with salt. He was instructed never to drink a drop of alcohol. He is still a smoker and I told him to try to smoke less. I should see him this coming Sunday. FINAL DIAGNOSES: 1. LEFT LOWER LOBE PNEUMONITIS, MOST LIKELY RESOLVED. 2. CHRONIC PANCREATITIS WITH ACUTE EXACERBATION 3. CHRONIC TOBACCO USE AND ABUSE, PERSISTENT 4. CHRONIC ALCOHOL USE AND ABUSE, PERSISTENT 5. HISTORY OF PULMONARY CAVITATION RIGHT UPPER LOBE SECONDARY TO FUNGAL INFECTION AND WAS FOLLOWED AND TREATED BY A TUFTER HAND AND THIS SEEMS TO HAVE RESOLVED. 6. HISTORY OF DEEP VEIN THROMBOSIS 7. HISTORY OF PULMONARY EMBOLI 8. HISTORY OF MYOCARDIAL INFARCTION TIMES TWO PROGNOSIS: Guarded for this patient. The patient is not compliant. IKERD
== END 2017-05-30 14:55 | disposition home or self-care (01) | DRG 194 ==
LOC: ED 11:25 → MEDSURG B 13:48
PROVIDERS: ADMIT General Practice; ATTEND General Practice
DX: J18.9 Pneumonia, unspecified organism (principal); K86.0 Alcohol-induced chronic pancreatitis; R07.9 Chest pain, unspecified; I10 Essential (primary) hypertension; F10.20 Alcohol dependence, uncomplicated; F17.210 Nicotine dependence, cigarettes, uncomplicated; R10.11 Right upper quadrant pain; R51 Headache; I25.2 Old myocardial infarction; Z79.01 Long term (current) use of anticoagulants; Z79.899 Other long term (current) drug therapy; Z86.718 Personal history of other venous thrombosis and embolism; Z86.711 Personal history of pulmonary embolism; Z95.828 Presence of other vascular implants and grafts
CPT/HCPCS: 36415; 80053; 80076; 82150; 82550; 82553; 83690; 84478; 84484; 85025; 85610; 85730; 87070; 93005; 93010; 94640; 96372; 99284

== ENCOUNTER 2017-06-05 11:24 | Outpatient (CLI) | END 2017-06-05 11:25 | disposition home or self-care (01) | LOC: FCC-LAB 11:24 | PROVIDERS: ATTEND General Practice | DX: K86.1 Other chronic pancreatitis (principal); I82.A2 Chronic embolism and thrombosis of axillary vein; I82.532 Chronic embolism and thrombosis of left popliteal vein; F10.20 Alcohol dependence, uncomplicated; I27.82 Chronic pulmonary embolism; I82.419 Acute embolism and thrombosis of unspecified femoral vein; Z12.5 Encounter for screening for malignant neoplasm of prostate; Z72.0 Tobacco use; Z79.01 Long term (current) use of anticoagulants; Z79.899 Other long term (current) drug therapy | CPT/HCPCS: 36415; 80053; 80061; 82150; 83690; 85025; 85610 ==

== ENCOUNTER 2017-06-12 10:37 | Emergency (ER) ==
[2017-06-12 10:44] VITALS: TEMP 98.2; BMI 21.8
--- NOTE | 2017-06-12 11:45 | ED.PDOC ---
General ED Provider: Dr. PERI ALMEIDA Chief Complaint: Chest Pain Stated Complaint: Pain in Lower chest and upper abdomen. Onset several days ago. Denies associated Nausea or vomiting. States pain has localized into RUQ into mid abdomen without radiating features. Hospitalized recently for treatment of pneumonia. Long standing alcoholic and recently relapsed and consumed several beers Time Seen by Physician: 11:15 Mode of Arrival: Wheelchair Information Source: Patient Exam Limitations: No limitations Primary Care Provider: CARLOZ HORTONKayla Referred to ED by: PCP Seen Within Last 72 Hours for Same Complaint By: Clinic Nursing and Triage Documentation Reviewed and Agree: Yes Reviewed sepsis parameters & appropriate labs ordered?: No System Inflammatory Response Syndrome: Not Applicable Sepsis Protocol: For patient's 13 years and over: Temp is 96.8 and below OR 101 and greater Pulse >90 BPM Resp >20/minute Acutely Altered Mental Status Are patient's symptoms suggestive of a new infection, such as: -Pneumonia -Skin, Soft Tissue -Endocarditis -UTI -Bone, Joint Infection -Implantable Device -Acute Abdominal Infection -Wound Infection -Meningitis -Blood Stream Catheter Infection -Unknown System Inflammatory Response Syndrome: Not Applicable Cardiovascular Complaint Exam - Chest Pain Complaint/Exam Onset: Gradual Symptoms Are: Still present Timing: Intermittent Initial Severity: Moderate Current Severity: None Location: Reports: Right anterior, Other (upper abdomen) Pain Radiates: Reports: None Character: Reports: Aching Aggravating: Reports: None Alleviating: Reports: Upright position Associated Signs and Symptoms: Reports: Nausea, Cough, Abdominal pain. Denies: Diaphoresis, Vomiting, Fever, Palpitations, Hemoptysis, Back pain, Short of air , Calf pain, Calf swelling Related History: Reports: Similar episode Related Surgical History: Reports: None History of Healthcare-Acquired Pneumonia: Reports: No AMI/ACS Risk Factors: Reports: None TAD Risk Factors: Reports: None Pulmonary Embolism Risk Factors: Reports: None Prior Care for this Complaint: Yes Recent Stress Test: No Review of Systems - Review Of Systems Constitutional: Reports: No symptoms Eyes: Reports: No symptoms Ears, Nose, Mouth, Throat: Reports: No symptoms Respiratory: Reports: No symptoms Cardiac: Reports: No symptoms, Chest pain GI: Reports: No symptoms, Abdominal pain, Other (chronic pancreatitis) : Reports: No symptoms Musculoskeletal: Reports: No symptoms Skin: Reports: No symptoms Neurological: Reports: No symptoms Endocrine: Reports: No symptoms Hematologic/Lymphatic: Reports: No symptoms All Other Systems: Reviewed and Negative Past Medical History - Past Medical History Previously Healthy: No Endocrine: Reports: None Cardiovascular: Reports: HI, Hypertension, DVT (BILATERAL LEGS) Respiratory: Reports: PE (RIGHT LUNG ), Other (TB, ) Hematological: Reports: None Gastrointestinal: Reports: Pancreatitis (alcoholism) Genitourinary: Reports: None Neuro/Psych: Reports: Migraine Musculoskeletal: Reports: None Cancer: Reports: None Other Pertinent Past Medical History: right hand heart cath without stents blood clot filter - Surgical History General Surgical History: Reports: None, Heart Cath, Orthopedic (right hand ), Other (heart cath without stents, blood clot filter). Denies: Stent - Family History Family History: Reports: None - Social History Smoking Status: Current every day smoker, Light tobacco smoker Hx Substance Use: No Alcohol Screening: Occasionally Physical Exam - Physical Exam Appearance: Well-appearing, No pain distress, Well-nourished, Thin Ill-appearing: Mild Pain Distress: Mild Eyes: MERCED, EOMI, Conjunctiva clear ENT: Ears normal, Nose normal, Oropharynx normal Respiratory: Airway patent, Breath sounds clear, Breath sounds equal, Respirations nonlabored Cardiovascular: RRR, Pulses normal, No rub, No murmur GI/: Soft, No masses, Bowel sounds normal, No Organomegaly, Tender (RUQ/no guarding or rebound) Musculoskeletal: Normal strength, ROM intact, No edema, No calf tenderness Skin: Warm, Dry, Normal color Neurological: Sensation intact, Motor intact, Reflexes intact, Cranial nerves intact, Alert, Oriented Psychiatric: Affect appropriate, Mood appropriate Critical Care Note - Critical Care Note Total Time (mins): 0 Course - Course Hematology/Chemistry: 06/12/17 12:30 06/12/17 12:30 Orders, Labs, Meds: Lab Review 06/12/17 06/12/17 06/12/17 12:20 12:20 12:30 WBC 5.32 RBC 3.93 L Hgb 12.1 L Hct 35.4 L MCV 90.1 MCH 30.8 MCHC 34.2 RDW Coeff of Kristine 16.2 H Plt Count 221 Immature Gran % (Auto) 0.0 Neut % (Auto) 53.7 Lymph % (Auto) 35.0 Fajardo % (Auto) 8.6 Eos % (Auto) 2.1 Baso % (Auto) 0.6 Immature Gran # (Auto) 0.0 Neut # (Auto) 2.9 Lymph # (Auto) 1.9 Fajardo # (Auto) 0.5 Eos # (Auto) 0.1 Baso # (Auto) 0.0 D-Dimer (Manual) Sodium Potassium Chloride Carbon Dioxide Anion Gap BUN Creatinine Estimated GFR (MDRD) BUN/Creatinine Ratio Glucose Calcium Total Bilirubin AST ALT Alkaline Phosphatase Troponin I Total Protein Albumin Globulin Albumin/Globulin Ratio Amylase Lipase Urine Color Yellow Urine Clarity Clear Urine pH 6.0 Ur Specific Elmer 1.010 Urine Protein Negative Urine Glucose (UA) Negative Urine Ketones Negative Urine Blood Negative Urine Nitrite Negative Urine Bilirubin Negative Urine Urobilinogen 0.2 Ur Leukocyte Esterase Negative Urine Opiates Screen Negative Ur Oxycodone Screen Negative Urine Methadone Screen Negative Ur Propoxyphene Screen Negative Ur Barbiturates Screen Negative U Tricyclic Antidepress Negative Ur Phencyclidine Scrn Negative Ur Amphetamine Screen Negative U Methamphetamines Scrn Negative U Benzodiazepines Scrn Negative Urine Cocaine Screen Negative U Cannabinoids Screen Positive 06/12/17 06/12/17 06/12/17 12:30 12:30 12:30 WBC RBC Hgb Hct MCV MCH MCHC RDW Coeff of Kristine Plt Count Immature Gran % (Auto) Neut % (Auto) Lymph % (Auto) Fajardo % (Auto) Eos % (Auto) Baso % (Auto) Immature Gran # (Auto) Neut # (Auto) Lymph # (Auto) Fajardo # (Auto) Eos # (Auto) Baso # (Auto) D-Dimer (Manual) 374.84 Sodium 142 Potassium 3.8 Chloride 107 Carbon Dioxide 25 Anion Gap 13.8 BUN 12 Creatinine 0.82 Estimated GFR (MDRD) 116.00 BUN/Creatinine Ratio 14.63 Glucose 86 Calcium 9.6 Total Bilirubin 0.3 AST 22 ALT 16 Alkaline Phosphatase 81 Troponin I < 0.0100 Total Protein 7.9 Albumin 3.7 Globulin 4.2 Albumin/Globulin Ratio 0.88 Amylase 286 H Lipase 752 H* Urine Color Urine Clarity Urine pH Ur Specific Elmer Urine Protein Urine Glucose (UA) Urine Ketones Urine Blood Urine Nitrite Urine Bilirubin Urine Urobilinogen Ur Leukocyte Esterase Urine Opiates Screen Ur Oxycodone Screen Urine Methadone Screen Ur Propoxyphene Screen Ur Barbiturates Screen U Tricyclic Antidepress Ur Phencyclidine Scrn Ur Amphetamine Screen U Methamphetamines Scrn U Benzodiazepines Scrn Urine Cocaine Screen U Cannabinoids Screen Orders Category Date Time Status EKG-(ED ONLY) Stat CARDIO 06/12/17 12:11 Completed AMYLASE Stat LAB 06/12/17 12:30 Completed CBC W/ AUTO DIFF Stat LAB 06/12/17 12:30 Completed CMP [COMPREHENSIVE METABOLIC PANEL] Stat LAB 06/12/17 12:30 Completed D-DIMER Stat LAB 06/12/17 12:30 Completed LIPASE Stat LAB 06/12/17 12:30 Completed TROPONIN I Stat LAB 06/12/17 12:30 Completed UA [URINALYSIS C & S IF INDICATED] Stat LAB 06/12/17 12:20 Completed URINE DRUG SCREEN (RAPID FOR ED) [DRUG SCREEN, URINE, LAB 06/12/17 12:20 Completed RAPID] Stat CHEST, 2 VIEWS PA & LAT Stat RADS 06/12/17 12:[address] ABDOMEN/PELVIS WO CONTRAST Stat RADS 06/12/17 12:12 Completed Vital Signs: Temp Pulse Resp BP Pulse Ox 06/12/17 10:38 98.2 F 87 20 135/98 H 98 MALA Risk Score MALA Risk Score: Risk Score Odds of by 30D 0 0.1 (0.1-0.2) 1 0.3 (0.2-0.3) 2 0.4 (0.3-0.5) 3 0.7 (0.6-0.9) 4 1.2 (1.0-1.5) 5 2.2 (1.9-2.6) 6 3.0 (2.5-3.6) 7 4.8 (3.8-6.1) Departure - Departure Time of Disposition: 15:45 Disposition: HOME SELF-CARE Discharge Problem: Chronic pancreatitis, Chronic alcohol dependence, continuous, Chronic alcohol abuse, Pneumonia Instructions: Pancreatitis (ED), Abuse of Alcohol (DC) Condition: Fair Pt referred to PMD for follow-up: Yes (next week;suggest alcohol counseling) IPMP verified?: Yes Additional Instructions: Suggest alcohol abuse counseling and seek treatment for alcohol addiction. Follow up PCP Stop using alcohols Allergies/Adverse Reactions: Allergies apixaban [From Eliquis] Allergy (Unknown, Verified 06/12/17 10:45) Unknown patient claims he did not tolerate the medication. Specifics are unknown. Penicillins Adverse Reaction (Severe, Verified 06/12/17 10:45) Anaphylaxis swelling in throat moxifloxacin [From Avelox] Adverse Reaction (Intermediate, Verified 06/12/17 10: 45) Itching ITCHING AT IV SITE Penicillins Adverse Reaction (Severe, Uncoded 05/23/17 11:35) Anaphylaxis swelling in throat Home Medications: Ambulatory Orders Tiotropium Hindman [Spiriva] 18 mcg IH DAILY #30 av 05/25/15 Omeprazole Magnesium [Prilosec] 20 mg PO DAILY tab-cap 01/13/16 Latanoprost [Xalatan] 1 drop OP BEDTIME 09/06/16 Disposition Discussed With: Patient
--- NOTE | 2017-06-12 12:49 | DI ---
EXAM: CHEST FRONTAL AND LATERAL VIEWS HISTORY: Chest pain. COMPARISON: 05/28/2017 FINDINGS: Heart size is within normal limits. Thoracic aorta appears grossly normal radiographicall y. Mild hyperinflation. No acute infiltrates are seen. No vascular congestion. There is no consoli dation, visible pleural fluid or pneumothorax. Bones reveal no acute fracture. IMPRESSION: No acute cardiopulmonary process.
--- NOTE | 2017-06-12 13:07 | CT ---
Exam: CT abdomen pelvis without intravenous contrast. Comparison: 05/28/2017. Reason for exam: Pain. FINDINGS: Mild basilar atelectasis in the partially imaged lung bases. Liver, spleen, gallbladder, and adrenal glands appear grossly unremarkable within limitations of a no ncontrasted study. Image interpretation is limited by lack of intravenous contrast administration. There is thickening of the proximal stomach likely accentuated by non distension. Similar appearing prominence of the main pancreatic duct with calcifications and soft tissue prominen ce of the pancreatic head. These findings do not appear significantly changed when compared to the C T performed on 05/28/2017. No intra-abdominal free air or pelvic free fluid. IVC filter is unchanged in position. No hydronephrosis, hydroureter, or nephrolithiasis in either kidney. The bladder appears grossly unremarkable. No suspicious appearing osteoblastic or osteolytic lesions. Impression: 1. Similar appearing soft tissue prominence with dilatation of the main pancreatic duct not signific antly changed when compared to CT imaging performed on 05/28/2017. If clinical concern exists, furth er evaluation may be performed. 2. Similar appearing vena cava filter
[2017-06-12 16:16] VITALS: BP 133/95
== END 2017-06-12 16:36 | disposition home or self-care (01) ==
LOC: ED 10:37
DX: K86.0 Alcohol-induced chronic pancreatitis (principal); F10.20 Alcohol dependence, uncomplicated; J18.9 Pneumonia, unspecified organism; I25.2 Old myocardial infarction; I10 Essential (primary) hypertension; Z86.711 Personal history of pulmonary embolism; Z86.718 Personal history of other venous thrombosis and embolism; F17.210 Nicotine dependence, cigarettes, uncomplicated
CPT/HCPCS: 36415; 80053; 80306; 81001; 82150; 83690; 84484; 85025; 85379; 85610; 93005; 93010; 99283

== ENCOUNTER 2017-06-12 10:51 | Outpatient (CLI) ==
[2017-06-12 10:44] VITALS: BMI 21.8
== END 2017-06-12 10:52 | disposition home or self-care (01) ==
LOC: FCC-LAB 10:51
PROVIDERS: ATTEND General Practice
DX: Z51.81 Encounter for therapeutic drug level monitoring (principal); Z79.01 Long term (current) use of anticoagulants; I82.419 Acute embolism and thrombosis of unspecified femoral vein; I82.532 Chronic embolism and thrombosis of left popliteal vein; I82.A2 Chronic embolism and thrombosis of axillary vein
CPT/HCPCS: 36415; 85610

== ENCOUNTER 2017-06-19 12:14 | Outpatient (CLI) | END 2017-06-19 12:15 | disposition home or self-care (01) | LOC: FCC-LAB 12:14 | PROVIDERS: ATTEND General Practice | DX: Z51.81 Encounter for therapeutic drug level monitoring (principal); Z79.01 Long term (current) use of anticoagulants; I82.A2 Chronic embolism and thrombosis of axillary vein; I82.419 Acute embolism and thrombosis of unspecified femoral vein; I82.532 Chronic embolism and thrombosis of left popliteal vein | CPT/HCPCS: 36415; 85610 ==

== ENCOUNTER 2017-06-20 10:15 | Outpatient (CLI) ==
--- NOTE | 2017-06-20 11:32 | US ---
EXAM: Bilateral carotid artery Doppler History: Dizziness and giddiness Technique: Multiple sonographic images through the bilateral internal carotid arteries were obtained . Color duplex Doppler was used to interrogate vascular flow. Findings: The right ICA peak systolic velocity is severely elevated measuring 4.7. Meters per second. The rig ht ICA/cca PSV ratio is severely increased measuring 12.5. The right vertebral artery is patent and demonstrates antegrade flow. Rosas scale images demonstrate moderate to severe plaque buildup and yordan rowing of the right internal carotid artery. The left ICA peak systolic velocity is severely elevated measuring 3.6 meters per second. The left I CA/cca PSV ratio is significantly increased at 6.9. The left vertebral artery is patent and demonstr ates antegrade flow. Rosas scale images demonstrate moderate to severe plaque buildup and narrowing o f the left internal carotid artery. Impression: Severe, greater than or equal to 70% hemodynamic stenosis of the bilateral internal hook tid arteries. Recommend further evaluation with CTA of the neck for better visualization
--- NOTE | 2017-06-20 13:42 | DI ---
Exam: Lumbar spine complete with obliques. HISTORY: Low back pain. Findings: Anterior, lateral, coned-down and bilateral oblique images of the lumbar spine are submitt ed. These demonstrate no compression fracture or listhesis. There is mild endplate osteophytosis. The facet joints appear aligned and intact. The bowel gas pattern is nonspecific. An IVC filter pro jects to the right of the lumbar spine. Impressions: Mild degenerative findings with no compression fracture or listhesis.
== END 2017-06-20 10:16 | disposition home or self-care (01) ==
LOC: RAD 10:15
PROVIDERS: ATTEND General Practice
DX: M54.5 Low back pain (principal); R42 Dizziness and giddiness; R09.89 Other specified symptoms and signs involving the circulatory and respiratory systems

== ENCOUNTER 2017-06-26 12:57 | Outpatient (CLI) | END 2017-06-26 12:58 | disposition home or self-care (01) | LOC: FCC-LAB 12:57 | PROVIDERS: ATTEND General Practice | DX: Z51.81 Encounter for therapeutic drug level monitoring (principal); Z79.01 Long term (current) use of anticoagulants; I82.A2 Chronic embolism and thrombosis of axillary vein; I82.523 Chronic embolism and thrombosis of iliac vein, bilateral; I82.449 Acute embolism and thrombosis of unspecified tibial vein | CPT/HCPCS: 36415; 85610 ==

== ENCOUNTER 2017-07-03 12:52 | Outpatient (CLI) | END 2017-07-03 12:53 | disposition home or self-care (01) | LOC: FCC-LAB 12:52 | PROVIDERS: ATTEND General Practice | DX: Z51.81 Encounter for therapeutic drug level monitoring (principal); Z79.01 Long term (current) use of anticoagulants; I82.A2 Chronic embolism and thrombosis of axillary vein; I82.523 Chronic embolism and thrombosis of iliac vein, bilateral; I82.419 Acute embolism and thrombosis of unspecified femoral vein | CPT/HCPCS: 36415; 85610 ==

== ENCOUNTER 2017-07-04 08:44 | Outpatient (CLI) ==
--- NOTE | 2017-07-04 11:19 | CT ---
EXAM: CTA of the head with and without contrast History: Headache, carotid stenosis. Comparison: CTA neck 07/04/2017, head CT 05/27/2017 Technique: Multiplanar CT images through the head were obtained with and without the administration of IV contrast. MIP images and 3-D reconstructions were also acquired. Findings: The visualized paranasal sinuses and mastoid air cells are clear in general. No acute amy varial abnormalities. Intracranially the ventricular and cisternal spaces are normal in size, shape and configuration for a patient of this age. No dominant mass or midline shift. No hydrocephalous. No acute intracranial hemorrhage or abnormal extraaxial fluid collections. No AVMs are seen within the brain. The [place] o f [place] is intact with no acute occlusion or severe stenosis. 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 No aneurysms. Impression: 1. No acute intracranial process. 2. Intact ekuk of B[place].
--- NOTE | 2017-07-04 11:29 | CT ---
EXAM: CTA of the neck with and without contrast History: Bilateral carotid stenosis. Comparison: CTA of the head 07/04/2017, carotid Doppler 06/20/2017, chest CT 05/23/2017 Technique: Multiplanar CT images through the soft tissue neck were obtained with and without the adm inistration of IV contrast. MIP images and 3-D reconstructions were also acquired. Findings: Left apical scarring again noted. Emphysema within the visualized upper lungs. No aortic arch again noted. The visualized paranasal sinuses and mastoid air cells are clear in general. No ac bambi osseous abnormalities. Degenerative changes of the cervical spine. Epiglottis is not thickened. No prevertebral soft tissue swelling. No parotid or submandibular gland inflammation. No discrete thyroid nodules identified by CT. No lymphadenopathy. No peritonsillar inflammation. Dominant right vertebral artery. The left vertebral artery is smaller than the right which is a norm al variation. No occlusion of the vertebral arteries. The bilateral subclavian arteries are patent without significant disease. The bilateral common carot id arteries are patent without significant disease. There is severe focal narrowing of the proximal bilateral internal carotid arteries near the carotid bifurcations with at least 80-90% stenosis. Ther e is good flow seen within the more distal bilateral internal carotid arteries. The stenosis appears to be due to mostly soft plaque. Impression: Severe stenosis of the proximal bilateral internal carotid arteries. Vascular surgery co nsult recommended.
== END 2017-07-04 08:45 | disposition home or self-care (01) ==
LOC: RAD 08:44
PROVIDERS: ATTEND General Practice
DX: I65.23 Occlusion and stenosis of bilateral carotid arteries (principal)

== ENCOUNTER 2017-07-05 10:32 | Outpatient (CLI) | END 2017-07-05 10:33 | disposition home or self-care (01) | LOC: FCC-LAB 10:32 | PROVIDERS: ATTEND General Practice | DX: R10.9 Unspecified abdominal pain (principal) | CPT/HCPCS: 36415; 80053; 81001; 82150; 83690; 85025 ==

== ENCOUNTER 2017-07-17 10:13 | Outpatient (CLI) | END 2017-07-17 10:14 | disposition home or self-care (01) | LOC: FCC-LAB 10:13 | PROVIDERS: ATTEND General Practice | DX: Z51.81 Encounter for therapeutic drug level monitoring (principal); Z79.01 Long term (current) use of anticoagulants; I82.A2 Chronic embolism and thrombosis of axillary vein; I82.523 Chronic embolism and thrombosis of iliac vein, bilateral; I82.419 Acute embolism and thrombosis of unspecified femoral vein | CPT/HCPCS: 36415; 85610 ==

== ENCOUNTER 2017-07-26 12:01 | Outpatient (CLI) | END 2017-07-26 12:02 | disposition home or self-care (01) | LOC: FCC-LAB 12:01 | PROVIDERS: ATTEND General Practice | DX: K86.1 Other chronic pancreatitis (principal); I82.532 Chronic embolism and thrombosis of left popliteal vein; I82.419 Acute embolism and thrombosis of unspecified femoral vein; I82.A2 Chronic embolism and thrombosis of axillary vein; Z72.0 Tobacco use | CPT/HCPCS: 36415; 80053; 82150; 83690; 85025; 85610 ==

== ENCOUNTER 2017-08-08 09:20 | Outpatient (CLI) | END 2017-08-08 09:21 | disposition home or self-care (01) | LOC: FCC-LAB 09:20 | PROVIDERS: ATTEND General Practice | DX: I82.A2 Chronic embolism and thrombosis of axillary vein (principal); I82.532 Chronic embolism and thrombosis of left popliteal vein; I82.419 Acute embolism and thrombosis of unspecified femoral vein; Z79.01 Long term (current) use of anticoagulants; K86.1 Other chronic pancreatitis; F10.20 Alcohol dependence, uncomplicated | CPT/HCPCS: 36415; 82150; 83690; 85610; 85730 ==

== ENCOUNTER 2017-08-10 10:43 | Outpatient (CLI) ==
--- NOTE | 2017-08-10 11:50 | DI ---
EXAM: Lumbar spine five views, including oblique views HISTORY: Dorsalgia, unspecified COMPARISON: 06/20/2017 TECHNIQUE: Five views lumbar spine were performed including oblique views FINDINGS: Vertebral bodies normal height. No fracture. No subluxation. Multilevel marginal osteop hyte formation. Mild intervertebral disc space narrowing L4-L5, L5-S1. Multilevel facet arthrosis. Atherosclerotic vascular calcification. IVC filter. IMPRESSION: Chronic discogenic degenerative disease and facet arthrosis.
--- NOTE | 2017-08-10 11:50 | DI ---
EXAM: Chest two view, frontal and lateral views. HISTORY: Cough. COMPARISON: 06/12/2017. FINDINGS: The heart size is normal. There is no pulmonary vascular congestion. The lungs are clear . No pleural effusion or pneumothorax is seen. No acute osseous abnormality identified. Inferior v galindo cava filter noted. Since the prior study, there has been no significant interval change. IMPRESSION: No acute cardiopulmonary process.
--- NOTE | 2017-08-10 11:52 | DI ---
EXAM: Thoracic spine; AP, lateral, and swimmer's lateral views COMPARISON: None. HISTORY: Back pain FINDINGS: There is no acute fracture or listhesis. There is no compression. Alignment is anatomic. Th ere is some minimal degenerative change. Soft tissues are unremarkable. IMPRESSION: No acute fracture or listhesis.
--- NOTE | 2017-08-10 11:53 | DI ---
EXAM: Right ribs three-view HISTORY: Pleurodynia COMPARISON: None TECHNIQUE: Three views right ribs were performed FINDINGS: No visible pneumothorax. No right rib fracture identified. IMPRESSION: No right rib fracture identified.
== END 2017-08-10 10:44 | disposition home or self-care (01) ==
LOC: RAD 10:43
PROVIDERS: ATTEND General Practice
DX: R05 Cough (principal); M54.9 Dorsalgia, unspecified; R07.81 Pleurodynia; R10.9 Unspecified abdominal pain; K86.1 Other chronic pancreatitis; F10.20 Alcohol dependence, uncomplicated; Z72.0 Tobacco use
CPT/HCPCS: 36415; 82150; 82310; 82947; 83690

== ENCOUNTER 2017-08-17 15:18 | Outpatient (CLI) | END 2017-08-17 15:19 | disposition home or self-care (01) | LOC: FCC-LAB 15:18 | PROVIDERS: ATTEND General Practice | DX: Z51.81 Encounter for therapeutic drug level monitoring (principal); Z79.01 Long term (current) use of anticoagulants; I82.A2 Chronic embolism and thrombosis of axillary vein; I82.523 Chronic embolism and thrombosis of iliac vein, bilateral; I82.419 Acute embolism and thrombosis of unspecified femoral vein | CPT/HCPCS: 36415; 85610 ==

== ENCOUNTER 2017-08-17 16:09 | Outpatient (CLI) ==
--- NOTE | 2017-08-17 17:03 | CT ---
EXAM: CT of the abdomen pelvis without contrast History: Pancreatitis. Comparison: CT abdomen pelvis 06/12/2017 Technique: Multiplanar CT images through the abdomen pelvis were obtained without the administration of IV contrast. Findings: Subsegmental atelectasis seen within the lower lungs. Lung bases are free of consolidatio n. No acute osseous abnormalities. Question avascular necrosis of the bilateral femoral heads. IVC filter is seen in place. No discrete gallstones identified by CT. Calcified granulomas within the spleen. No focal liver lesions. No renal stones and no hydronephrosis. No evidence for bowel obstr uction. Moderate to large amount colonic stool. No bladder wall thickening. Bladder is not well di stended. Prostate is not enlarged. No free air. There is peripancreatic inflammation. Pancreatic duct is again dilated. No change in the large calculus within the pancreatic head measuring about 2 cm. Impression: 1. Acute on chronic pancreatitis. 2. No change in the large calcification in the pancreatic head which is causing obstruction of the m ain pancreatic duct.
== END 2017-08-17 16:10 | disposition home or self-care (01) ==
LOC: RAD 16:09
PROVIDERS: ATTEND General Practice
DX: K86.1 Other chronic pancreatitis (principal)

== ENCOUNTER 2017-09-04 10:30 | Outpatient (CLI) | END 2017-09-04 10:31 | disposition home or self-care (01) | LOC: FCC-LAB 10:30 | PROVIDERS: ATTEND General Practice | DX: I82.419 Acute embolism and thrombosis of unspecified femoral vein (principal); I82.532 Chronic embolism and thrombosis of left popliteal vein; I27.82 Chronic pulmonary embolism; R10.9 Unspecified abdominal pain; K86.1 Other chronic pancreatitis | CPT/HCPCS: 36415; 82150; 83690 ==

== ENCOUNTER 2017-10-05 12:56 | Outpatient (CLI) | END 2017-10-05 12:57 | disposition home or self-care (01) | LOC: FCC-LAB 12:56 | PROVIDERS: ATTEND General Practice | DX: I82.A2 Chronic embolism and thrombosis of axillary vein (principal); I82.523 Chronic embolism and thrombosis of iliac vein, bilateral; I82.419 Acute embolism and thrombosis of unspecified femoral vein; Z79.01 Long term (current) use of anticoagulants | CPT/HCPCS: 36415; 85610 ==

== ENCOUNTER 2017-10-23 16:13 | Outpatient (CLI) | END 2017-10-23 16:14 | disposition home or self-care (01) | LOC: FCC-LAB 16:13 | PROVIDERS: ATTEND General Practice | DX: K86.1 Other chronic pancreatitis (principal); I82.A2 Chronic embolism and thrombosis of axillary vein; I82.532 Chronic embolism and thrombosis of left popliteal vein; I82.419 Acute embolism and thrombosis of unspecified femoral vein; Z79.01 Long term (current) use of anticoagulants; Z51.81 Encounter for therapeutic drug level monitoring | CPT/HCPCS: 36415; 82150; 83690; 85610 ==

== ENCOUNTER 2017-10-30 13:09 | Outpatient (CLI) | END 2017-10-30 13:10 | disposition home or self-care (01) | LOC: FCC-LAB 13:09 | PROVIDERS: ATTEND General Practice | DX: Z51.81 Encounter for therapeutic drug level monitoring (principal); Z79.01 Long term (current) use of anticoagulants; I82.A2 Chronic embolism and thrombosis of axillary vein; I82.523 Chronic embolism and thrombosis of iliac vein, bilateral; I82.419 Acute embolism and thrombosis of unspecified femoral vein | CPT/HCPCS: 36415; 85610 ==

== ENCOUNTER 2017-11-13 11:19 | Outpatient (CLI) ==
--- NOTE | 2017-11-13 12:37 | DI ---
EXAM: Two views of the chest. History: Chronic embolism, back pain. Comparison: Chest radiograph 08/10/2017 Findings: Heart size is within normal limits. No focal consolidation. No appreciable pleural fluid and no pneumothorax. Double aortic arch again noted. Hyperinflation with increase in retrosternal c lear space. No acute osseous abnormalities. IVC filter seen within the abdomen Impression: No acute cardiopulmonary process. Chronic obstructive pulmonary disease. No change com pared to the prior study.
--- NOTE | 2017-11-13 12:46 | DI ---
EXAM: Three views of the thoracic spine. History: Thoracic back pain. Comparison: Thoracic spine radiograph 08/10/2017 Findings: No acute fracture or subluxation. Mild multilevel disc space narrowing with a few small o steophytes. Impression: 1. No acute osseous abnormality of the thoracic spine. 2. Mild degenerative disc disease
--- NOTE | 2017-11-13 12:49 | DI ---
EXAM: Five views of the lumbar spine. History: Lower back pain. Comparison: Lumbar spine radiograph 08/10/2017 Findings: No acute fracture or subluxation of the lumbar spine. IVC filter is again seen in place. No significant interval change in the mild to moderate multilevel degenerative disc space narrowing with a few prominent osteophytes. No progressive disc degeneration. No significant interval change i n the nonspecific 1.5 cm mid abdominal calcification. Impression: 1. No acute osseous abnormality of the lumbar spine. 2. Degenerative disc disease is unchanged.
== END 2017-11-13 11:20 | disposition home or self-care (01) ==
LOC: LAB 11:19
PROVIDERS: ATTEND General Practice
DX: I82.532 Chronic embolism and thrombosis of left popliteal vein (principal); E78.5 Hyperlipidemia, unspecified; M54.9 Dorsalgia, unspecified
CPT/HCPCS: 36415; 80053; 81001; 82150; 83690; 85025

== ENCOUNTER 2017-12-31 10:24 | Outpatient (CLI) ==
[2017-11-16 16:12] VITALS: BMI 17.1
== END 2017-12-31 10:25 | disposition home or self-care (01) ==
LOC: RHC-LAB 10:24
PROVIDERS: ATTEND General Practice
DX: I82.A2 Chronic embolism and thrombosis of axillary vein (principal); I82.532 Chronic embolism and thrombosis of left popliteal vein; I82.419 Acute embolism and thrombosis of unspecified femoral vein
CPT/HCPCS: 36415; 80053; 82150; 85025

== ENCOUNTER 2018-01-08 09:09 | Outpatient (CLI) ==
[2017-11-16 16:12] VITALS: BMI 17.1
--- NOTE | 2018-01-08 10:23 | US ---
EXAM: Complete abdominal ultrasound. History: Abdominal pain. Comparison: CT abdomen pelvis 11/16/2017 Technique: Multiple sonographic images through the abdomen were obtained. Color duplex Doppler was used to interrogate vascular flow. Findings: The liver is not enlarged. No focal liver lesions identified sonographically. The visual ized abdominal aorta and IVC demonstrate normal caliber. Spleen is not seen due to obscuration by keila wel gas. No shadowing gallstones. Mild gallbladder wall thickening. Common bile duct measures 0.4 cm in caliber. Pancreatic duct is probably dilated. Both kidneys measure normal in long length without evidence for hydronephrosis, mass or shadowing amy culus. Complex mass seen within the pancreas head measuring about 4 cm containing calcification. There is an tegrade flow within the main portal vein. Impression: 1. A complex mass within the pancreatic head containing calcification. Pancreatic duct is dilated. Recommend further evaluation with MRI/MRCP of the abdomen. 2. Nonspecific gallbladder wall thickening
== END 2018-01-08 09:10 | disposition home or self-care (01) ==
LOC: RAD 09:09
PROVIDERS: ATTEND General Practice
DX: R10.9 Unspecified abdominal pain (principal); K86.1 Other chronic pancreatitis; I82.A2 Chronic embolism and thrombosis of axillary vein; I82.532 Chronic embolism and thrombosis of left popliteal vein; I82.419 Acute embolism and thrombosis of unspecified femoral vein
CPT/HCPCS: 36415; 80053; 82150; 85025

== ENCOUNTER 2018-01-16 11:41 | Inpatient (IN) ==
--- NOTE | 2018-01-16 13:21 | US ---
EXAM: ULTRASOUND ABDOMEN COMPLETE HISTORY: Abdominal pain FINDINGS: Rosas scale ultrasound and color Doppler was performed. The liver size was normal at 10 cm. The liver parenchyma demonstrated normal sonographic appearance without evidence of intrahepatic biliary dilat ation or focal lesion. Patent and hepatopedal main portal vein. A few tiny echogenic debris are seen floating within the gallbladder which could represent stones or sludge. Gallbladder wall is within normal limits at 0.29 cm. Common bile duct could not be measured secondary to excessive regional bowel gas. The pancreatic duct was dilated. There was a 3 cm cysti c region near or within the head of the pancreas which may represent significant pancreatic head duct al dilatation as seen on prior CT. Aorta appeared have normal caliber. The spleen was not adequately seen. The right kidney measured 8 .2 cm and the left kidney could not be seen. No hydronephrosis. IMPRESSION: A few tiny floating foci of gallbladder may represent sludge or tiny stones. No gallbla dder wall thickening is suggested. The common bile duct could not be seen for measurement. Dilated pancreatic duct which has been described on previous CT.
[2018-01-16 17:14] VITALS: BMI 17.5
--- NOTE | 2018-01-16 18:12 | PCM ---
- Chief Complaint Chief Complaint: 62 yo AAM abdominal pain, chronic pancreatitis . - History of Present Illness History of Present Illness: 62 yo AAM with recurrent pancreatitis presented to Dr. Anne today for f/u from visit to [place]. Patient has had pain in abdomen, burning, heaviness, discomfort for about 1 month and no different today than it has been over the last 30 days. He does not feel more pain, does not feel more pressure, does not feel more nausea. He came in today and talked with Dr. Anne in the ER and they arranged admit for pancreatitis. Lipase was 2764. The patient last labs over the last 2 years. I asked him in room if he feels different than he did 2 weeks ago and he said no. Labs reviewed vitals reviewed, No apparent acute change in status over past 30 days. He feels okay, nausea mildly, aching in abdomen, back and ribs. He has no pain meds at home. He has pain in waves and feels he needs it at times. Right now it is calm and he does not feel that he needs anything. I reviewed letter from Luann Estrada MD [facility] induced chronic pancreatitis. He is not driking ETOH now. He has exocrine pancreatic insufficiency, Pancreatic stones, dilation of pancreatic duct, weight loss. He was referred by DR. Anne for abnl imaging of pancrease with abd pain. RUQ pain > epigastric pain over 1 year. Pain is constant with flares, (as he told me in room 115 today). BM every day, intermittent constipation/hard stools. Weight loss over months prior to visit with mushtaq Ewing daily. Meds reviewed from that visit. Coumadin regularly, IFC filter in place, he has motrin listed, norco listed, senna, prilosec, zestril, xalatan, spiriva and pravachol. Dx chronic abd pain w/ flares, chronic pancratitis, stone with dilatio nof duct, recommended check labs, fat colton vits, fecal elastase, creon, daily MVI and get him to have an ERCP. US of abdomen was completed 01/16/18, few tiny floating foci of GB may represent sludge or tiny stones. NO GB wall thickening suggested, common bile duct could not be seen for measurement. Dilated pancreatic duct seen on previous CT. Marline 391, Lip 2754. CBC reviewed adn WBC 5.38, hgb 12.4, hct 36.2 plt 224. ABG 7.441, PC02 33.5, p02 121, hc03 22.8. Sodium minimally low at 136.4, K+ 4.25, creatinine 0.59, GFR 169, lactic 1.27, 10.09 calcium, AST 55.2, alt 40.8, alb 5.03, amylase 390.6, lipase 2754.1. Procalc <0.05. Urine showed SG 1.015, protein neg, neg gluc, urine blood negative. nit neg. I had a good long discussion with patient with Emani nurse present. He reports Pain 5-6/10 at present with pain up to 8/10 with palpation. BM this am normal, non bloody, non diarrhea. he and I discussed option with his symptoms to consider trial of PO meds for pain now, trial of clears and see how he does over 1-2 hours. if doing well, no increased pain, he would like to go home tonight if possible. He does not want to be in hospital for thanksgiving, he does not feel his pain is any worse today than it was over last 30 days. Vitals are stable, labs are reasonable other than marked elevation of lipase and amylase. Mucus membranes are not dry , he has no altered mental status. He seems to be doing okay actually. Per his request "I WANT A CHEESEBURGER." I discussed start low and increase. WE talked about percocet as change from oxycodone to oxymorphone (dilaudid) is a good choice for pain meds. I will give him 7.5 TID x 7 days and I will allow him to drink clears. Current guidelines support no longer using NPO and starting with clear/advancing as tolerated. He is on creon. We will continue this and he is more than welcome to go home if there is no acute status change. If pain, if problems, we can always reassess in am. He would like to go home if he tolerates this challenge. I will place into observation and I will see how he does over next few hours. I contacted PCP Dr. Anne. We reviewed his meds, reviewed his problems. Social issues with getting ride but if he can get out in next few hours, he would love to go home. I discussed that was reasonable. - Review of Systems Constitutional: No: fever, chills, weakness, sweats, fatigue, loss of appetite, other Eyes: No: blurred vision, double-vision, discharge, itching, pain, redness, photophobia, other Ears: No: pain, bleeding, drainage, ringing, hearing loss, other Nose: No: bleeding, congestion, discharge, other Throat: No: pain, swelling, voice change, other Mouth: No: bleeding, pain, swelling, other Respiratory: cough (intermittent). No: shortness of air, wheeze, hemoptysis, pain with breathing, other Cardiovascular: No: chest pain, left arm pain, diaphoresis, PND, orthopnea, edema, palpitations, syncope, other Gastrointestinal: abdominal pain, nausea, constipation (Intermittent hard stools ). No: vomiting, diarrhea, melena, hematemesis, hematochezia, dysphagia, other Genitourinary: No: dysuria, hematuria, frequency, incontinence, flank pain, penile discharge, testicular pain, testicular swelling, other Neurological: No: headache, other, dizziness, seizure, numbness, weakness, speech difficulty, problems with walking, tremor, fainting Musculoskeletal: pain (Radiating pain into back occasionally. ). No: swelling in joints, other Skin: No: rash, pruritus, lacerations, wounds, other Immunology: No: hives, itching, frequent infections, difficulty healing, other Hematology: easy bruising, easy bleeding (on anticoag). No: swollen glands, other Endocrine: other (Chronic pancreatitis.) - Past Medical History Past Medical History: ETOH abuse, THC use, 1/2 ppd tobacco user, carotid stenosis, COPD, Chronic pancreatitis due to ETOH intox, Essential HTN, GERD, [place] 1984, pulm emboli, chronic anticoagulation. Left hip pain chronic, nodule of groin. - Past Surgical History Past Surgical History: Appendectomy, CEA left 10/15/17, EGD 3-4 x hx variceal bleeds, hand surgery right, IVC Filt. - Allergies Allergies/Adverse Reactions: Allergies Allergy/AdvReac Type Severity Reaction Status Date / Time apixaban [From Eliquis] Allergy Unknown Unknown Verified 01/16/18 11:43 Penicillins AdvReac Severe Anaphylaxis Verified 01/16/18 11:43 moxifloxacin [From Avelox] AdvReac Intermediate Itching Verified 01/16/18 11:43 Penicillins AdvReac Severe Anaphylaxis Uncoded 01/16/18 11:43 - Medications Medications: Lisinopril 10mg tablet 1 po daily Pravastatin 40mg 1 po daily Coumadin 6mg Prilosec 20mg daily Creon Latanoprost 1 drop BTL Nitroglycerine PRN SPiriva PRN - Family History Past Family History: Brother with cardiac disease. HTN Mother. - Social History Past Social History: , current smoker 1/2 ppd >30 years cig. Started 1987. Former heavy ETOH. Stopped 09/2017. Prior #2 forty ounce beer 3-4 days per week. Occ THC. - Vital Signs Temperature: 97.5 F Pulse Rate: 77 Respiratory Rate: 20 Blood Pressure: 122/77 O2 Sat by Pulse Oximetry: 99 - Body Composition Height: 5 ft 4 in Weight: 102 lb 4.712 oz Body Mass Index (BMI): 17.5 - Physical Examination HEENT: Constitutional: Appearance-No acute distress, chronic pancreatitis. Appears Consistent with stated age. Orientation- Oriented x 3, alert Gait- Unobserved Build and Nutrition-[Thin male, under weight, BMI 17. ] General- Patient is pleasant and cooperative with the interview and exam. Integumentary: General-No rashes, ulcers or lesions. Palpation- Normal skin moisture/turgor. Skin is warm to touch, appropriate. Capillary refill is normal bilateral Upper and lower extremity. Head/Neck: Head- normocephalic and atraumatic. Neck- without visible/palpable lumps or pulsations. Palpation- No bony tenderness about head/neck along frontal, occipital, temporal, parietal, mastoid, jawline, zygoma, orbit or any other location. NO temporal artery tenderness. No TMJ tenderness. Neck Supple. Thyroid-No thyromegaly, no nodules Eye: Bilaterally PERRLA, EOMI. No discharge. Upper and lower eyelids are normal. Sclera/conjunctiva normal without discharge. Cornea is normal and clear. Lens is normal. Eyeball appears normal. No ciliary flushing, no conjunctival injection. ENMT: Pinna- normal without tenderness or erythema. External auditory canal Left- normal without erythema or discharge, no excessive cerumen. External auditory canal Right-normal without erythema or discharge, no excessive cerumen. TM left- [place]/pearly, normal light reflex and anatomy TM Right- [place]/ pearly, normal light reflex and anatomy Hearing Assessment-normal to conversational speech. Nose and sinus- No sinus tenderness along frontal/ maxillary region. External appearance normal and midline. Nares- bilateral quiet airflow, no discharge. Nasal mucosa- No bleeding noted and no ulcerations observed. [place], moist. Turbinates non boggy. Lips- normal color, moist without cracks/lesions Oral Cavity/Palate- hard/soft palate intact without lesions, oral mucosa pink and moist. Dentition assessed [] and discussed appropriate oral care. Tongue normal midline. Oropharynx- no pharyngeal erythema, Uvula midline. No post nasal drip. No exudate. Salivary glands- Non tender to palpation CHEST/LUNG: Inspection- symmetric chest wall no pectus deformity. Normal effort , no distress, no use of accessory muscles. Palpation- nontender sternum, ribline. No abnormal pulsations. Auscultation- Breath sounds normal throughout all lung lazo. Normal tracheal sounds, Normal bronchial sounds overlying sternum, Bronchovessicular sounds normal between scapulae posteriorly, Normal vessicular breath sounds heard throughout periphery. Lungs are clear today. Adventitious sounds- No wheezes, rales, rhonchi. CARDIOVASCULAR: Carotid artery- normal, no bruits or abnormal pulsations. Jugular vein- no pulsations. Palpation/Percussion- Normal PMI, no palpable thrill Auscultation- Regular rate and rhythm. No murmur noted in sitting, supine positions. Extremities- no digital clubbing, cyanosis, edema, increased warmth. ABDOMEN: Inspection- normal and no visible pulsations. Normal contour. Auscultation- Bowel sounds normal no abdominal bruits. Palpation/Percussion- soft, tender about the epigastric/umbilicus, no rebound tenderness, no rigidity (guarding), no jar tenderness, no masses. Peripheral Vascular: Upper extremity Left- Normal temperature with pink nailbeds and no ulcerations. Upper extremity Right- Normal temperature with pink nailbeds and no ulcerations. Lower extremity- Normal temperature with pink nailbeds and no ulcerations. DP pulses 2+ bilaterally. Musculoskeletal: Generalized-No generalized swelling or edema of extremities, no digital clubbing or cyanosis, neurovascularly intact all four extremities. Upper extremity- Symmetrical posture. No visible deformity. Normal sensation along medial and lateral upper extremity proximally and distally. NO tenderness overlying shoulder, lateral/medial epicondyle. Patrol Sergeant 5/5 and strength 5/5 bilateral UE. Elbow palpated, no tenderness overlying olecranon. Normal supination, pronation to active/passive ROM and to resisted rotation. Bicep insertion/tricep insertion appear normal without obvious pathology. Rotator cuff evaluated and intact. Normal wrist ROM bilaterally. Normal hand movement, intrinsic muscles of hands normal. No tenderness to palpation of hands/wrists/ elbows. Lower extremity- Hip: Not tender to palpation, no pain, no swelling, edema or erythema of surrounding tissue, normal strength and tone. Normal appearing hip ROM bilaterally without pain. Knee: Knee ROM normal. No tenderness overlying trochanters, no tenderness about patella, quad tendon, patellar tendon. No tenderness at tibial tuberosity. Ankle: normal ROM not tender to palpation along medial/lateral malleolus. Spine/Ribs- No deformities, masses or tenderness, no known fractures, normal strength, Normal ROM. Normal stability No tenderness along C/T/L spine. Normal appearing ROM about spine. Neurological: General- Moves all 4 extremities symmetrically. Symmetrical face and body posture. Cranial nerves- individually evaluated II-XII and intact. PERRLA, Normal EOMI, visual/special senses appear intact, Face is symmetrical and normal sensation/movement, normal tongue, normal strength/posture of neck musculature. Reflexes- intact with DTR 2+ patellar, Achilles, bicep, brachial, tricep. Ankle clonus normal with 2 beats. Strength- 5/5 bilateral UE and LE. Soft touch- intact bilateral UE and LE. Temperature sensation- intact bilateral UE and LE. Neuropsych: Oriented- Person, place, time. (AAOx3), Mood/affect- normal and congruent. Able to articulate well. Speech-Normal speech, normal rate, normal tone, normal use of language, volume and coherence. Thought content- normal with ability to perform basic computations and apply abstract thought/reason. Associations- intact, no SI/HI, no hallucinations, delusions, obsessions. Judgment/insight- Appropriate. Memory-Recall intact, remote and recent memory intact. Knowledge- Age appropriate fund of knowledge, concentration and attention span normal. Lymphatic: Head/Neck- normal size and non tender to palpation. Axillary- normal size and non tender to palpation. Femoral and Inguinal- normal size and non tender to palpation. - Lab/Tests/Diagnostic Imaging Lab/Tests/Diagnostic Imaging: Laboratory Last Values WBC 5.38 K/ul (4.2-10.2) 01/16/18 12:20 RBC 4.11 10^6/ul (4.70-6.10) L 01/16/18 12:20 Hgb 12.4 g/dl (14.0-18.0) L 01/16/18 12:20 Hct 36.2 % (42.0-52.0) L 01/16/18 12:20 MCV 88.1 fl (80.0-94.0) 01/16/18 12:20 MCH 30.2 pg (27.0-31.0) 01/16/18 12:20 MCHC 34.3 (31.8-35.4) 01/16/18 12:20 RDW Coeff of Kristine 16.7 % (11.6-14.8) H 01/16/18 12:20 Plt Count 224 10^3/uL (140-440) 01/16/18 12:20 Immature Gran % (Auto) 0.2 % (0.0-5.0) 01/16/18 12:20 Neut % (Auto) 55.5 01/16/18 12:20 Lymph % (Auto) 33.1 (10.0-50.0) 01/16/18 12:20 [place] % (Auto) 7.8 (0-10) 01/16/18 12:20 Eos % (Auto) 3.0 % (0.0-7.0) 01/16/18 12:20 Baso % (Auto) 0.4 % (0.0-3.0) 01/16/18 12:20 Immature Gran # (Auto) 0.0 (0.0-1.0) 01/16/18 12:20 Neut # (Auto) 3.0 K/ul (2.0-6.9) 01/16/18 12:20 Lymph # (Auto) 1.8 K/uL (0.60-3.4) 01/16/18 12:20 [place] # (Auto) 0.4 K/uL (0.4-2.0) 01/16/18 12:20 Eos # (Auto) 0.2 K/ul (0.0-0.7) 01/16/18 12:20 Baso # (Auto) 0.0 K/uL (0-0.2) 01/16/18 12:20 Puncture Site Rr 01/16/18 13:58 O2 Saturation 99.0 % (95-100) 01/16/18 13:58 ABG pH 7.441 (7.35-7.45) 01/16/18 13:58 ABG pCO2 33.5 mmHg (35-45) L 01/16/18 13:58 ABG pO2 121.0 mmHg (85-100) H 01/16/18 13:58 ABG HCO3 22.8 (22.0-26.0) 01/16/18 13:58 ABG Total CO2 24 (22.0-28.0) 01/16/18 13:58 ABG Base Excess -1 (-2.0-2.0) 01/16/18 13:58 [place] Test + 01/16/18 13:58 FiO2 % 21.0 % 01/16/18 13:58 Sodium 136.4 mmol/L (137-145) L 01/16/18 12:20 Potassium 4.25 mmol/L (3.5-5.1) 01/16/18 12:20 Chloride 103.7 mmol/L (98-107) 01/16/18 12:20 Carbon Dioxide 25.4 mmol/L (22-30.0) 01/16/18 12:20 Anion Gap 11.55 01/16/18 12:20 BUN 9.7 mg/dL (9-20) 01/16/18 12:20 Creatinine 0.59 mg/dL (0.60-1.10) L 01/16/18 12:20 Estimated GFR (MDRD) 169.00 mL/min 01/16/18 12:20 BUN/Creatinine Ratio 16.44 01/16/18 12:20 Glucose 103.1 mg/dL (74-106) 01/16/18 12:20 Lactic Acid 1.27 mmol/L (0.7-2.1) 01/16/18 12:20 Calcium 10.09 mg/dL (8.4-10.2) 01/16/18 12:20 Total Bilirubin 0.62 mg/dL (0.2-1.3) 01/16/18 12:20 AST 55.2 U/L (17-59) 01/16/18 12:20 ALT 40.8 U/L (0-50) 01/16/18 12:20 Alkaline Phosphatase 91.8 U/L (56-119) 01/16/18 12:20 Total Protein 8.74 g/dL (6.3-8.2) H 01/16/18 12:20 Albumin 5.03 g/dL (3.5-5.0) H 01/16/18 12:20 Globulin 3.71 01/16/18 12:20 Albumin/Globulin Ratio 1.35 01/16/18 12:20 Amylase 390.6 U/L (30-110) H 01/16/18 12:20 Lipase 2754.1 U/L (23-300) H 01/16/18 12:20 Procalcitonin < 0.05 ng/mL (<0.05) 01/16/18 12:20 Urine Color Yellow (YELLOW) 01/16/18 13:10 Urine Clarity Clear (CLEAR) 01/16/18 13:10 Urine pH 6.5 (5-9) 01/16/18 13:10 Ur Specific [place] 1.015 (1.005-1.030) 01/16/18 13:10 Urine Protein Negative (NEGATIVE) 01/16/18 13:10 Urine Glucose (UA) Negative (NEGATIVE) 01/16/18 13:10 Urine Ketones Negative (NEGATIVE) 01/16/18 13:10 Urine Blood Negative (NEGATIVE) 01/16/18 13:10 Urine Nitrite Negative (NEGATIVE) 01/16/18 13:10 Urine Bilirubin Negative (NEGATIVE) 01/16/18 13:10 Urine Urobilinogen 0.2 (0.2) 01/16/18 13:10 Ur Leukocyte Esterase Negative (NEGATIVE) 01/16/18 13:10 US of abdomen was completed 01/16/18, few tiny floating foci of GB may represent sludge or tiny stones. NO GB wall thickening suggested, common bile duct could not be seen for measurement. Dilated pancreatic duct seen on previous CT. - Plan Plan: Elevated Lipase/Amylase w/ chronic Pancreatitis: Chronic process, unchanged per patient report. We will give him oral pain meds, give trial of clear liquids and see how he does through the evening. He was given option if pain controlled , tolerated sx that he could go tonight. He chose to stay night and have d/c in am. This is reasonable based on presentation. History of ETOH, not using ETOH now. Pain seems chronic and baseline, he has no other c/o at this time. Elevated lipase significantly. Chronic anticoagulation: On coumadin, IVC filter in place. Monitored and not directly related to his hospital admit. 11/19/17 1.[address] He reports Dr. Anne covers the coumadin and was told it was okay. We will get one tomorrow. Essential HTN: Resume lisinopril, BP is stable. Goal <140/90. Chronic/stable problem. Diet: Clear advance as tolerated Activity: Up with assist. DVT Prophy: IVC filter and Coumadin. Admit: Observation status. Expected length of stay 1 day. Disposition: At this time we will monitor and control pain, advance diet as tolerated. I do not need am labs, repeating Lipase/amylase are not helpful for the patient. See back in am and d/c 01/17/18 likely. 50 minutes spent on admission. Moderate complexity.
[2018-01-16] MEDS: PERCOCET 7.5-325 PO PRN (19:29)
[2018-01-17] MEDS: PERCOCET 7.5-325 PO PRN ×2 (03:22→11:24)
--- NOTE | 2018-01-17 09:54 | PCM.DC ---
Final Diagnosis: Chronic Pancreatitis Abdominal pain Chronic anticoagulation Reason for Hospitalization: Abdominal pain and nausea in chronic pancreatitis, Elevated Lipase. Prognosis at Discharge: Improved, abdominal pain controlled with oral narcotic Percocet. D/C home with 7 days of TID medication. Condition at Discharge: Chronic problem, stable/baseline. Medications at Discharge: Ambulatory Orders Medication Instructions Recorded Tiotropium Duson [Spiriva] 18 mcg IH DAILY #30 av 05/25/15 Latanoprost [Xalatan] 1 drop OP BEDTIME 09/06/16 Omeprazole [Prilosec] 20 mg PO QDAC 11/17/17 Oxycodone-Acetaminophe 7.5-325 1 tab PO TID 7 Days #21 tablet 01/17/18 [Percocet 7.5-325] Lab/Diagnostics: Laboratory Last Values WBC 5.38 K/ul (4.2-10.2) 01/16/18 12:20 RBC 4.11 10^6/ul (4.70-6.10) L 01/16/18 12:20 Hgb 12.4 g/dl (14.0-18.0) L 01/16/18 12:20 Hct 36.2 % (42.0-52.0) L 01/16/18 12:20 MCV 88.1 fl (80.0-94.0) 01/16/18 12:20 MCH 30.2 pg (27.0-31.0) 01/16/18 12:20 MCHC 34.3 (31.8-35.4) 01/16/18 12:20 RDW Coeff of Kristine 16.7 % (11.6-14.8) H 01/16/18 12:20 Plt Count 224 10^3/uL (140-440) 01/16/18 12:20 Immature Gran % (Auto) 0.2 % (0.0-5.0) 01/16/18 12:20 Neut % (Auto) 55.5 01/16/18 12:20 Lymph % (Auto) 33.1 (10.0-50.0) 01/16/18 12:20 [place] % (Auto) 7.8 (0-10) 01/16/18 12:20 Eos % (Auto) 3.0 % (0.0-7.0) 01/16/18 12:20 Baso % (Auto) 0.4 % (0.0-3.0) 01/16/18 12:20 Immature Gran # (Auto) 0.0 (0.0-1.0) 01/16/18 12:20 Neut # (Auto) 3.0 K/ul (2.0-6.9) 01/16/18 12:20 Lymph # (Auto) 1.8 K/uL (0.60-3.4) 01/16/18 12:20 [place] # (Auto) 0.4 K/uL (0.4-2.0) 01/16/18 12:20 Eos # (Auto) 0.2 K/ul (0.0-0.7) 01/16/18 12:20 Baso # (Auto) 0.0 K/uL (0-0.2) 01/16/18 12:20 Puncture Site Rr 01/16/18 13:58 O2 Saturation 99.0 % (95-100) 01/16/18 13:58 ABG pH 7.441 (7.35-7.45) 01/16/18 13:58 ABG pCO2 33.5 mmHg (35-45) L 01/16/18 13:58 ABG pO2 121.0 mmHg (85-100) H 01/16/18 13:58 ABG HCO3 22.8 (22.0-26.0) 01/16/18 13:58 ABG Total CO2 24 (22.0-28.0) 01/16/18 13:58 ABG Base Excess -1 (-2.0-2.0) 01/16/18 13:58 [place] Test + 01/16/18 13:58 FiO2 % 21.0 % 01/16/18 13:58 Sodium 136.4 mmol/L (137-145) L 01/16/18 12:20 Potassium 4.25 mmol/L (3.5-5.1) 01/16/18 12:20 Chloride 103.7 mmol/L (98-107) 01/16/18 12:20 Carbon Dioxide 25.4 mmol/L (22-30.0) 01/16/18 12:20 Anion Gap 11.55 01/16/18 12:20 BUN 9.7 mg/dL (9-20) 01/16/18 12:20 Creatinine 0.59 mg/dL (0.60-1.10) L 01/16/18 12:20 Estimated GFR (MDRD) 169.00 mL/min 01/16/18 12:20 BUN/Creatinine Ratio 16.44 01/16/18 12:20 Glucose 103.1 mg/dL (74-106) 01/16/18 12:20 Lactic Acid 1.27 mmol/L (0.7-2.1) 01/16/18 12:20 Calcium 10.09 mg/dL (8.4-10.2) 01/16/18 12:20 Total Bilirubin 0.62 mg/dL (0.2-1.3) 01/16/18 12:20 AST 55.2 U/L (17-59) 01/16/18 12:20 ALT 40.8 U/L (0-50) 01/16/18 12:20 Alkaline Phosphatase 91.8 U/L (56-119) 01/16/18 12:20 Total Protein 8.74 g/dL (6.3-8.2) H 01/16/18 12:20 Albumin 5.03 g/dL (3.5-5.0) H 01/16/18 12:20 Globulin 3.71 01/16/18 12:20 Albumin/Globulin Ratio 1.35 01/16/18 12:20 Amylase 390.6 U/L (30-110) H 01/16/18 12:20 Lipase 2754.1 U/L (23-300) H 01/16/18 12:20 Procalcitonin < 0.05 ng/mL (<0.05) 01/16/18 12:20 Urine Color Yellow (YELLOW) 01/16/18 13:10 Urine Clarity Clear (CLEAR) 01/16/18 13:10 Urine pH 6.5 (5-9) 01/16/18 13:10 Ur Specific [place] 1.015 (1.005-1.030) 01/16/18 13:10 Urine Protein Negative (NEGATIVE) 01/16/18 13:10 Urine Glucose (UA) Negative (NEGATIVE) 01/16/18 13:10 Urine Ketones Negative (NEGATIVE) 01/16/18 13:10 Urine Blood Negative (NEGATIVE) 01/16/18 13:10 Urine Nitrite Negative (NEGATIVE) 01/16/18 13:10 Urine Bilirubin Negative (NEGATIVE) 01/16/18 13:10 Urine Urobilinogen 0.2 (0.2) 01/16/18 13:10 Ur Leukocyte Esterase Negative (NEGATIVE) 01/16/18 13:10 US of abdomen was completed 01/16/18, few tiny floating foci of GB may represent sludge or tiny stones. NO GB wall thickening suggested, common bile duct could not be seen for measurement. Dilated pancreatic duct seen on previous CT Follow-ups: 1. Dr. Anne in 1 week 2. GI as scheduled. Disposition: HOME SELF-CARE Hospital Course: 62 yo AAM with recurrent/chronic pancreatitis, patient of Dr. Anne. He presented to Dr. Anne office 01/16/18 for f/u from visit to [place]. Patient has had pain in abdomen, burning, heaviness, discomfort for previous 1 month, reported that this was no different than it had been over the last 30 days. He denied increased pain, increased nauase. He did not feel any additional pressure, nor more nausea. He visit with Dr. Anne in the ER and they arranged admit for pancreatitis to me. Lipase was 2764. I reviewed his labs over the last 2 years. I asked him last night if he felt any different than he had 2 weeks ago and he said "no." Labs reviewed vitals reviewed, No apparent acute change in status over past 30 days other than increased lipase/ amylase. He feels okay, nausea mildly, aching in abdomen, back and ribs but this was always there. He reported no access to pain meds at home. Colicky, wave like pain and feels he needs it at times. Last night pain was a 6 but it can get to about an 8-10. We talked about pain control last night and he did not feel that he needed anything. We discussed/reviewed letter from Luann Estrada MD w/ pt h/o ETOH induced chronic pancreatitis. PT is not driking ETOH now, quit multiple months in the past. He has exocrine pancreatic insufficiency , Pancreatic stones, dilation of pancreatic duct, weight loss. He was referred by DR. Anne for abnl imaging of pancreas with abd pain. RUQ pain > epigastric pain over 1 year, again no different over last 60 days per patient report and no different now. Pain is constant with some worsening during flares , (as he told me in room 115 today). BM every day, intermittent constipation/ hard stools. Weight loss over months prior to visit with DR. Pruitt. He was given norco at one point, none now. Meds reviewed from that visit. Coumadin regularly, IFC filter in place, he has motrin listed, norco listed, senna, prilosec, zestril, xalatan, spiriva and pravachol. Dx chronic abd pain w/ flares, chronic pancreatitis, stone with dilation of duct, recommended check labs, fat colton vits, fecal elastase, creon, daily MVI and get him to have an ERCP. US of abdomen was completed 01/16/18, few tiny floating foci of GB may represent sludge or tiny stones. NO GB wall thickening suggested, common bile duct could not be seen for measurement. Dilated pancreatic duct seen on previous CT. Marline 391, Lip 2754. CBC showed WBC 5.38, hgb 12.4, hct 36.2 plt 224. ABG 7.441, PC02 33.5, p02 121, hc03 22.8. Sodium minimally low at 136.4, K + 4.25, creatinine 0.59, GFR 169, lactic 1.27, 10.09 calcium, AST 55.2, alt 40.8 , alb 5.03, amylase 390.6, lipase 2754.1. Procalc <0.05. Urine showed SG 1.015, protein neg, neg gluc, urine blood negative. nit neg. I had a good long discussion with patient with Emani nurse present last night. He reported Pain 5-6/10 at admit with pain up to 8/10 with palpation. BM normal/regular, non bloody, non diarrhea. he and I discussed option last night to consider trial of PO meds for pain now, trial of clear liquids w/ advancement and see how he does over 1-2 hours. WE tried that, he decided he wanted to stay the night. He slept well per nurses. Remained afebrile, VS stable. Uout overnight 1.16 ml/kg/hour which was perfect. Nursing notes state that he had "Burning pain in lungs." When I asked him about it he said he had that all the time and it was not new. He has no complaints, there is nothing at this point that suggests he needs to remain in hospital. Tolerating liquids, we can advance as tolerated, pain meds given, green Rx provided. 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 Last fill norco 5 10/06/17, which is reasonable. I offered patient stay today, we can check CXR, we can check a few more things to make sure he is doing okay. He wants to go home as it is Thanksgiving and he feels that he is chronic baseline. I asked him about breathing and he said it was fine. We will check INR prior to D/C. Plan: 1. D/C Home today 2. Percocet 1 PO TID written rx provided: We discussed opiates as a form of pain medication to act as an adjunct to Tylenol, NSAIDS, steroids, topical rubs such as icyhot, bengay, biofreeze, aspercreme, cool/warm compresses, stretching/ exercising etc. Opiates are not meant to eliminate pain but rather are designed to facilitate function and improve ADL. We discussed ADL today, discussed goals of therapy. We talked specifically about R/B/A to opiates, to overuse of opiates and dangers of using opiates even at recommended levels. We discussed frequency of visits depends on history and is individualized to the patient. We typically will see patients at least every 3 months for focused physical exam to make sure the medical course is stable. There is no published guideline for UDS. This is to reduce diversion, to make sure patient is actually taking them and not using illegal drugs. Random UDS are utilized to reduce chances of cheating the system. Patient can expect minimum of 2 per year scheduled and or random and if any compliance questions are considered. Discussed multiple rx can be given but again case by case basis. There will be no early fills, no after hours fills. We reviewed the level of pain, ADL, any adverse effects, and aberrant drug-related behaviors. We also reviewed personal and family history of substance abuse and discussed appropriate destruction of unwanted Rx. 3. See Dr. Anne in next 1 week. 4. Can return to ER if worsening pain, new symptoms. 5. INR was 1.29 at discharge. He takes 6mg daily. I will have him take 9 mg tonight resume 6 mg and check again in 1 week.
[2018-01-17 10:14] VITALS: BP 122/77; TEMP 97.5
[2018-01-17] MEDS ORDERED: COUMADIN PO SCH (17:00)
[2018-01-17] MEDS ORDERED: NON-FORMULARY MEDICATION (Warfarin Sodium [Coumadin] 6 MG) PO SCH (17:00)
--- NOTE | 2018-01-21 14:52 | ER ---
CHIEF COMPLAINT/HISTORY OF PRESENT ILLNESS: 62-year-old Black male was seen at the office initially with increasing abdominal pain. This patient has been known to have chronic pancreatitis most likely secondary to alcohol with recurrent acute exacerbation. The patient was seen at [facility], Internal Medicine, Division of Gastroenterology and Hepatology. [facility]. The patient's pain had been increasing since the last visit at [facility]. He had been to the office twice because of increasing pain. His pain mostly in the epigastric area and radiating to the back. The patient's next appointment is May 2018. 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 The patient claimed that he had not drank a drop of alcohol since he had been to [place]. He, however continued to smoke. PHYSICAL EXAMINATION: V/S: In the emergency room temperature 97.1, pulse 83, BP 99/69, respiratory rate 18, oxygen saturation 98 on room air. Height 5'4, Weight 105 lbs and 3.2 ozs. GENERAL: The patient on examination was alert, always cooperative. He is not dyspneic or tachypneic and no cyanosis. Scalp is unremarkable. Face is symmetrical and equal with no facial weakness. No redness. He denied any tenderness in the frontomaxillary areas to palpation and/or pressure. EYES: Pupils are equal and reactive to light about 1.5 mm in size and slowly reactive. The globe moves well horizontally and vertically. Conjunctiva is somewhat pale. Sclerae nonicteric. MOUTH: Poorly kept. No inflammation. No exudate. No tumors. NECK: Scar on the left side from recent carotid endarterectomy. There are no masses, no significant bruit that is audible. CHEST: Symmetrical and equal with good expansion with no remarkable tenderness. LUNGS: Breath sounds are heard on both sides, diminished. No rales or wheezing. HEART: Audible and regular with good tones, no murmurs. ABDOMEN: Flat, soft with tenderness over the abdomen with voluntary guarding. Tenderness is more at the epigastric area. Bowel sounds are active. No masses. No bruit. EXTERNAL GENITALIA: Not examined. RECTAL: Not performed. LOWER EXTREMITIES: Symmetrical and equal with no edema. Pedal pulses present both anterior and posterior tibials. UPPER EXTREMITIES: Symmetrical and equal. CBC today is unremarkable except for moderate anemia, 4.4 hemoglobin, hematocrit 36.7, MCV 88.1, MCH 30.2, RDW 16.7. Arterial blood gases unremarkable. Electrolytes are normal. C02 normal. EGFR estimated 169. Liver enzymes normal. Alkaline phosphatase normal. Total protein 8.74, albumin 5.03. Amylase 390.6, lipase 2,754, procalcitonin less than 0.05, lactic acid 1.27. ASSESSMENT: 1. CHRONIC PANCREATITIS WITH ACUTE EXACERBATION. 2. CHRONIC ALCOHOL USE AND ABUSE. THE PATIENT CLAIMED THAT HE HAD NOT DRANK FOR TWO MONTHS. 3. CHRONIC TOBACCO USE AND ABUSE, PERSISTENT. 4. ANEMIA, PERSISTENT. PLAN: The patient is admitted to the hospital for hydration and control of pain and increased abdominal pain. The patient will be admitted under the services of Dr. Martinez as hospitalist. DAIJA
--- NOTE | 2018-01-22 14:41 | PN ---
DATE OF SERVICE: 01/16/18 SUBJECTIVE: I got a call from Dr. Martinez since I signed out to him. Mr. Samano was at the office complaining of severe pain and could hardly move with the pain. Examination the patient had marked tenderness in the epigastric area as well as the costal wall right side. He pointed also to the lower abdomen, suprapubic tender with pain. He claimed to have this pain but he had pain prior to going to [place]. He had been to the office twice and I had done a Lipase and Amylase and they were elevated but he had this elevation previously. His levels were not any higher than what was it before. This patient has chronic pancreatitis. He continued drinking and maybe until lately. He denies drinking any alcohol, not a drop of alcohol according to him. I did send him to the emergency room so I could do the workup without him traveling back and forth to the office. Workup at the emergency room showed a markedly elevated serum lipase 2,754 and amylase of 390.6. Total protein slightly above normal as well as albumin. Procalcitonin was negligible less than 0.05. Abdominal ultrasound showed some floating materials in the gallbladder maybe slug or tiny stones but the gallbladder wall is not thickened. The common bile duct could not be visualized very well. Dilated pancreatic duct had been documented previously by CT. The patient also had a pancreatic stone on previous examination. The patient now is not complaining of severe pain. He claims that his pain is better. This patient had not had any food since he left the office early afternoon. He didn't have any food until about 6:30pm. He still has tenderness in the epigastric area but not as severe as he had. It is conceivable that the pain is much less than it was if he had an exacerbation of the chronic pancreatis. His serum lipase is indeed markedly elevated from the previous levels. The paitent is now eating and we will what happens. He wants to go home , reason he wants to see his granddaughter and two he wants to celebrate Thanksgiving. This patient while in the office was barely moving and not smiling because of the pain that he projected to me. 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 He claims to be better now and did not have much pain as eating. No nausea and smiling and cheerful. MTDD
== END 2018-01-17 12:30 | disposition home or self-care (01) | DRG 392 ==
LOC: ED 11:41 → MEDSURG B 16:25
PROVIDERS: ADMIT Family Medicine; ATTEND Family Medicine
DX: R10.9 Unspecified abdominal pain (principal); D64.9 Anemia, unspecified; E86.0 Dehydration; I10 Essential (primary) hypertension; F10.10 Alcohol abuse, uncomplicated; Z72.0 Tobacco use; Z79.01 Long term (current) use of anticoagulants; Z79.899 Other long term (current) drug therapy
CPT/HCPCS: 36415; 80053; 81001; 82150; 82803; 83605; 83690; 84145; 85025; 85610; 99217; 99219; 99285

== ENCOUNTER 2018-03-05 10:27 | Outpatient (CLI) | END 2018-03-05 10:28 | disposition home or self-care (01) | LOC: RHC-LAB 10:27 | PROVIDERS: ATTEND General Practice | DX: I82.A2 Chronic embolism and thrombosis of axillary vein (principal); I82.419 Acute embolism and thrombosis of unspecified femoral vein; Z79.01 Long term (current) use of anticoagulants | CPT/HCPCS: 36415; 85610 ==

== ENCOUNTER 2018-03-19 08:47 | Outpatient (CLI) | END 2018-03-19 08:48 | disposition home or self-care (01) | LOC: RHC-LAB 08:47 | PROVIDERS: ATTEND General Practice | DX: Z51.81 Encounter for therapeutic drug level monitoring (principal); Z79.01 Long term (current) use of anticoagulants; I82.A2 Chronic embolism and thrombosis of axillary vein; I82.419 Acute embolism and thrombosis of unspecified femoral vein | CPT/HCPCS: 36415; 85610 ==

== ENCOUNTER 2018-05-20 10:31 | Outpatient (CLI) | END 2018-05-20 10:32 | disposition home or self-care (01) | LOC: RHC-LAB 10:31 | PROVIDERS: ATTEND General Practice | DX: I82.A2 Chronic embolism and thrombosis of axillary vein (principal); I82.419 Acute embolism and thrombosis of unspecified femoral vein; Z51.81 Encounter for therapeutic drug level monitoring; Z79.01 Long term (current) use of anticoagulants | CPT/HCPCS: 36415; 85610 ==

== ENCOUNTER 2018-05-27 13:57 | Outpatient (CLI) | END 2018-05-27 13:58 | disposition home or self-care (01) | LOC: RHC-LAB 13:57 | PROVIDERS: ATTEND General Practice | DX: Z51.81 Encounter for therapeutic drug level monitoring (principal); Z79.01 Long term (current) use of anticoagulants | CPT/HCPCS: 36415; 85610 ==

== ENCOUNTER 2018-06-13 12:51 | Outpatient (CLI) ==
--- NOTE | 2018-06-13 13:16 | DI ---
EXAM: CHEST FRONTAL AND LATERAL VIEWS HISTORY: Cough. COMPARISON: 06/13/2018 FINDINGS: Heart size and mediastinal contour remain within normal limits. Lungs are hyperinflated . No acute infiltrates are seen. No vascular congestion. There is no consolidation, visible pleura l fluid or pneumothorax. Bones reveal no acute fracture. IMPRESSION: No acute cardiopulmonary process.
== END 2018-06-13 12:52 | disposition home or self-care (01) ==
LOC: CAR 12:51
PROVIDERS: ATTEND General Practice
DX: R07.9 Chest pain, unspecified (principal); R05 Cough; Z79.01 Long term (current) use of anticoagulants; I82.A2 Chronic embolism and thrombosis of axillary vein; F10.20 Alcohol dependence, uncomplicated; Z72.0 Tobacco use; I27.82 Chronic pulmonary embolism
CPT/HCPCS: 36415; 80053; 81001; 82550; 82553; 84484; 85025; 85610; 93005; 93010

== ENCOUNTER 2018-06-17 12:17 | Outpatient (CLI) ==
--- NOTE | 2018-06-17 14:49 | DI ---
EXAM: CHEST FRONTAL AND LATERAL VIEWS HISTORY: Chest pain and shortness of breath. COMPARISON: 06/13/2018 FINDINGS: Heart size and mediastinal contour remain within normal limits. Mild hyperinflation. N o acute infiltrates are seen. No vascular congestion. There is no consolidation, visible pleural fl uid or pneumothorax. Bones reveal no acute fracture. IMPRESSION: No acute cardiopulmonary process.
== END 2018-06-17 12:18 | disposition home or self-care (01) ==
LOC: RAD 12:17
PROVIDERS: ATTEND Internal Medicine
DX: R06.02 Shortness of breath (principal); R07.9 Chest pain, unspecified

== ENCOUNTER 2018-06-19 06:30 | Outpatient (CLI) ==
--- NOTE | 2018-06-20 11:26 | ECHO2D ---
Date of Exam: 06/19/18 Ordering Physician: DR. CARLOZ CAMP Room # : OP Reason for Echo: CHEST PAIN, SOB HTN M-Mode Normal Adult Results LV Dimensions Normal Adult Results AoV Opening excursions >1.6 >1.6 LVEDD-base- 3.5-5.8 3.6 Ao root dimensions 2.0-3.7 2.8 LVESD-base- 3.1-4.6 L. Atrium dimensions 1.9-3.8 3.2 Post. Wall thickness 0.8-1.1 1.1 IV septum (thickness) 0.7-1.2 1.0 Post. Wall excursion 0.72-1.3 NORMAL Septal motion NORMAL Systolic motion R. Ventricular cavity 1.5-2.0 NORMAL LVEF 60% 60% Paradoxical septal wall motion NORMAL 2-D : 2-D M Mode Echocardiogram was performed using apical four chamber and left parasternal long and short axis views. Mitral, tricuspid and aortic valves appear to be normal. Contractility of the left ventricle seems to be normal, so is the cavity size. Left atrial cavity size and aortic root appear to be normal. There is no pericardial effusion. There is no thrombus noted in the left ventricular or left aortic cavity. No mitral valve prolapse noted. M-MODE: MV: NORMAL AV: NORMAL TV: NORMAL PV: CHAMBER SIZE: NORMAL WALL MOTION: NORMAL PERICARDIUM: NORMAL INTERPRETATION: 1. NORMAL 2 "D" "M" MODE ECHO MTDD
== END 2018-06-19 06:31 | disposition home or self-care (01) ==
LOC: CAR 06:30
PROVIDERS: ATTEND Internal Medicine
DX: R07.9 Chest pain, unspecified (principal); R06.02 Shortness of breath; I10 Essential (primary) hypertension

== ENCOUNTER 2018-06-20 08:35 | Outpatient (CLI) | END 2018-06-20 08:36 | disposition home or self-care (01) | LOC: CAR 08:35 | PROVIDERS: ATTEND Internal Medicine | DX: R06.02 Shortness of breath (principal) ==

== ENCOUNTER 2018-06-25 06:21 | Outpatient (CLI) ==
[2018-06-25] MEDS ORDERED: ATROPINE SULFATE PFS IVP STA (07:57)
[2018-06-25] MEDS ORDERED: DOBUTAMINE 500 MG-D5W 250 ML IV ONE (07:58)
[2018-06-25] MEDS ORDERED: DOBUTAMINE 500 MG-D5W 250 ML 500 MG in PREMIX 250 ML D5W 1 BAG IV SCH (08:30)
--- NOTE | 2018-06-25 10:25 | NM ---
Cardiac Stress Test HISTORY: Chest pain, shortness of breath and dizziness for 2 years. COMPARISON: None of this type. TECHNIQUE: Resting: The patient was injected with 3.5 mCi of thallium 201 chloride intravenously after which a "resting" SPECT study of the heart was performed. Stress: The patient was stressed pharmacologically with dobutamine and at the appropriate time injec darlin with 25 millicuries of 99m technetium Sestamibi (Cardiolite) after which a "stress" SPECT study o f the heart was performed. Gated images of the heart were also obtained to assess wall motion and ca lculate ejection fraction. For details of the stress protocol employed, reference is made to the isabella arate report of the performing physician. FINDINGS: The stress perfusion images demonstrate decreased activity in the inferior/ inferolateral wall segment which appears to improve at rest suggesting ischemia. The resting perfusion images demo nstrate no evidence of significant redistribution/ischemia elsewhere. The left ventricular ejection fraction (LVEF) is 49%. IMPRESSION: 1. Left ventricular myocardial perfusion demonstrates findings suggesting ischemia in the inferior/i nferolateral wall segment. 2. The left ventricular ejection fraction (LVEF) is 49%.
--- NOTE | 2018-06-26 10:09 | DOBSTECHST ---
Ordering Physician: DR. SARAN MEI Date of Test: 06/25/18 Reason for Examination: CHEST PAIN, SOB, HTN Smoking History: 30 PK/YR Height: 64" Weight: 103 LBS Current Medications: LOVENOX, OMEPRAZOLE, PRAVASTATIN, COUMADIN, LIPASE/AMYLASE , LISINOPRIL, LATANOPROST, NITRO, SPIRIVA Target Heart Rate: 135/159 S-T Segment Stage Time HR BPM BP MMHG Rhythm +/- Elevation Depression Symptoms Control Sitting 70 BPM 150/92 SR X NONE Dobutamine 250mg/D5W 5cmg/KG/mn 10cmg/KG/mn 3:00 74 BPM 162/82 SR X NONE 15cmg/KG/mn 2:00 75 BPM SR X .25 ATROPINE 20cmg/KG/mn 2:00 113 BPM 160/94 SR X NONE 25cmg/KG/mn :54 131 BPM 200/102 SR X NONE 30cmg/KG/mn 35cmg/KG/mn 40cmg/KG/mn 3 MIN POST INFUSION z 123 194/98 SR X NONE 10 MIN POST INFUSION z 86 158/90 SR X NONE DURATION OF INFUSION 7:54 MAXIMUM HEART RATE REACHED 131 99% OXYGEN SATURATION AT REST ON ROOM AIR Interpretation: 1. NO EVIDENCE OF ISCHEMIA BY ST-T WAVE 2. NO CHEST PAIN OR DISCOMFORT 3. NORMAL LEFT VENTRICULAR CONTRACTILITY--RESTING AND POST WITH DOBUTAMINE INFUSION 4. SESTAMIBI TO FOLLOW MTDD
--- NOTE | 2018-06-26 10:16 | ECHOSTRESS ---
Date of Exam: 06/25/18 Ordering Physician: DR. SARAN MEI/ DR. CARLOZ CAMP Reason for Echo: CHEST PAIN, SOB, HTN, DOBUTAMINE STRESS TEST--NO ISCHEMIA M-Mode Normal Adult Results LV Dimensions Normal Adult Results AoV Opening excursions >1.6 LVEDD-base- 3.5-5.8 Ao root dimensions 2.0-3.7 LVESD-base- 3.1-4.6 L. Atrium dimensions 1.9-3.8 Post. Wall thickness 0.8-1.1 IV septum (thickness) 0.7-1.2 Post. Wall excursion 0.72-1.3 Septal motion Systolic motion R. Ventricular cavity 1.5-2.0 LVEF 60% Paradoxical septal wall motion 2-D: NORMAL LEFT VENTRICULAR CONTRACTILITY--RESTING AND WITH DOBUTAMINE INFUSION M-MODE: MV: AV: TV: PV: CHAMBER SIZE: WALL MOTION: NORMAL LEFT VENTRICULAR CONTRACTILITY--RESTING AND WITH DOBUTAMINE INFUSION PERICARDIUM: INTERPRETATION: 1. NORMAL LEFT VENTRICULAR CONTRACTILITY--RESTING AND WITH DOBUTAMINE INFUSION SESTAMIBI TO FOLLOW MTDD
== END 2018-06-25 06:22 | disposition home or self-care (01) ==
LOC: CAR 06:21
PROVIDERS: ATTEND Internal Medicine
DX: R07.9 Chest pain, unspecified (principal); R06.02 Shortness of breath; I10 Essential (primary) hypertension

== ENCOUNTER 2018-07-02 13:34 | Outpatient (CLI) | END 2018-07-02 13:35 | disposition home or self-care (01) | LOC: RHC-LAB 13:34 | PROVIDERS: ATTEND General Practice | DX: R10.9 Unspecified abdominal pain (principal); I10 Essential (primary) hypertension | CPT/HCPCS: 36415; 80053; 80061; 82150; 83690; 85025 ==

== ENCOUNTER 2018-07-03 11:43 | Outpatient (CLI) | END 2018-07-03 11:44 | disposition home or self-care (01) | LOC: RHC-LAB 11:43 | PROVIDERS: ATTEND General Practice | DX: F10.20 Alcohol dependence, uncomplicated (principal); K86.1 Other chronic pancreatitis; R94.31 Abnormal electrocardiogram [ECG] [EKG] | CPT/HCPCS: 36415; 86320 ==

== ENCOUNTER 2018-07-15 12:01 | Outpatient (CLI) | END 2018-07-15 12:02 | disposition home or self-care (01) | LOC: RHC-LAB 12:01 | PROVIDERS: ATTEND General Practice | DX: Z51.81 Encounter for therapeutic drug level monitoring (principal); Z79.01 Long term (current) use of anticoagulants; I82.A2 Chronic embolism and thrombosis of axillary vein; I82.419 Acute embolism and thrombosis of unspecified femoral vein | CPT/HCPCS: 36415; 85610 ==

== ENCOUNTER 2018-08-07 10:54 | Outpatient (CLI) ==
--- NOTE | 2018-08-07 13:12 | DI ---
EXAM: Two views of the chest. History: Essential hypertension. Comparison: Chest radiograph 06/17/2018 Findings: Heart size is normal. No focal consolidation. No appreciable pleural fluid and no pneumo thorax. No acute osseous abnormalities. IVC filter. Impression: No acute cardiopulmonary process.
== END 2018-08-07 10:55 | disposition home or self-care (01) ==
LOC: RAD 10:54
PROVIDERS: ATTEND General Practice
DX: K86.1 Other chronic pancreatitis (principal); I10 Essential (primary) hypertension; F10.20 Alcohol dependence, uncomplicated; R94.39 Abnormal result of other cardiovascular function study; Z72.0 Tobacco use
CPT/HCPCS: 36415; 80053; 80061; 81001; 82150; 83690; 83880; 85025; 85610

== ENCOUNTER 2018-08-12 09:52 | Outpatient (CLI) | END 2018-08-12 09:53 | disposition home or self-care (01) | LOC: LAB 09:52 | PROVIDERS: ATTEND Internal Medicine Gastroenterology | DX: K86.81 Exocrine pancreatic insufficiency (principal); K86.0 Alcohol-induced chronic pancreatitis | CPT/HCPCS: 36415; 80053 ==

== ENCOUNTER 2018-08-16 14:13 | Outpatient (CLI) | END 2018-08-16 14:14 | disposition home or self-care (01) | LOC: RHC-LAB 14:13 | PROVIDERS: ATTEND General Practice | DX: Z51.81 Encounter for therapeutic drug level monitoring (principal); Z79.01 Long term (current) use of anticoagulants | CPT/HCPCS: 36415; 85610 ==

== ENCOUNTER 2018-09-30 15:45 | Observation (INO) ==
[2018-09-30 16:18] VITALS: BMI 18.1
[2018-09-30] MEDS ORDERED: NITROSTAT SL PRN (16:29)
[2018-09-30] MEDS: COUMADIN PO SCH (17:10)
[2018-09-30] MEDS: INFUVITE ADULT 10 ML in D5%-1/2NS-KCL 20 MEQ/L IV SOL 1,000 ML IV SCH (18:30)
[2018-09-30] MEDS ORDERED: NON-FORMULARY MEDICATION (Losartan Potassium [Cozaar] 50 MG) PO SCH (21:00)
[2018-09-30] MEDS ORDERED: [UNRECOGNIZED DRUG - OTHER] PO SCH (21:00)
[2018-09-30] MEDS ORDERED: AMYLASE PO SCH (21:00)
[2018-09-30] MEDS ORDERED: CREON DR 12,000 UNITS CAPSULE PO SCH (21:00)
[2018-09-30] MEDS ORDERED: LIPASE PO SCH (21:00)
[2018-09-30] MEDS ORDERED: PROTEASE PO SCH (21:00)
[2018-09-30] MEDS: PRAVACHOL PO SCH (21:23)
[2018-09-30] MEDS: COZAAR PO SCH (21:24)
--- NOTE | 2018-09-30 23:38 | DI ---
Exam: Chest two-view History: Cough, congestion, chest pain FINDINGS: Normal cardiomediastinal contours. Normal pulmonary vasculature. The lungs are hyperexpa nded. The lungs are clear. No acute chest wall abnormality. Impression: Chronic obstructive pulmonary disease. No acute abnormalities.
[2018-10-01] MEDS ORDERED: INFUVITE ADULT IV ONE ×2 (05:26→19:42)
[2018-10-01] MEDS: PRILOSEC PO SCH (05:33)
[2018-10-01] MEDS: INFUVITE ADULT 10 ML in D5%-1/2NS-KCL 20 MEQ/L IV SOL 1,000 ML IV SCH ×2 (05:33→19:45)
[2018-10-01] MEDS: COZAAR PO SCH ×2 (08:29→21:39)
[2018-10-01] MEDS: NORVASC PO SCH (08:30)
[2018-10-01] MEDS: CREON DR 12,000 UNITS CAPSULE PO SCH ×3 (08:30→17:39)
[2018-10-01] MEDS ORDERED: NON-FORMULARY MEDICATION (Warfarin Sodium [Coumadin] 6 MG) PO SCH (09:00)
--- NOTE | 2018-10-01 14:54 | HP ---
DATE OF SERVICE: 09/30/18 CHIEF COMPLAINT: Left-sided chest pain, also complains of cough, chronic abdominal pain and fatigue. HISTORY OF PRESENT ILLNESS: Mr. Samano is a pleasant 61-year-old patient of Dr. Anne who presented yesterday to the office with routine followup appointment for his hypertension and DVT. He did complain of nonproductive cough and some chest congestion. He also has some complaints of a left-sided chest pain. This started a few days ago but has progressively gotten worse. This pain is definitely worse with exertion. He complains that the pain to the left upper extremity he always has. He either has pain or numbness to this left upper extremity. He denies any shortness of breath. He denies any nausea. Denies any emesis. Denies any syncopal episodes. He is in no acute distress today. He reports the chest pain is a stabbing pain to the left chest wall. He does feel that the pain gets worse when he takes a deep breath. He did have a recent heart cath done at [facility] in [place], [place]. Results have been requested. The results of that heart cath did show mild nonobstructive CAD. It did show normal left ventricular systolic function, possible cardiomegaly and pericardial effusion. Normal LVEDP and no gradient across the aortic valve with recommendations for optimal medical management. He does have a history of chronic pancreatitis and ETOH dependent. PAST MEDICAL HISTORY: Chronic pancreatitis DVT ETOH dependence Hypertension PAST SURGICAL HISTORY: Endarterectomy, April 15, 2018 Stent placed in the pancreas in 2019 Hand surgery Umbrella filter placed for blood clot FAMILY HISTORY: Cardiac disease in a brother, hypertension in mother. SOCIAL HISTORY: He is a current everyday smoker, approximately 1/2 pack of cigarettes per day. He drinks beer daily. Sometimes no beer a day but sometimes up to two alcoholic beverage drinks a day and typically this is beer. He does occasionally report marijuana use. No other ilicit drug use. MEDICATIONS: (CURRENT HOME) Omeprazole 20 mg daily Coumadin 6 mg daily Amlodipine 5 mg daily Losartan 50 mg twice a day Pravastatin 40 mg daily Creon one capsule three times a day Latanoprost eyedrop 1 drop at bedtime Nitroglycerin 0.4 mg tablet sublingual as directed for chest pain Spiriva 18 mcg capsule inhalation daily ALLERGIES: PENICILLIN WHICH CAUSED SEVERE ANAPHYLAXIS AND SWELLING IN HIS THROAT. REVIEW OF SYSTEMS: CONSTITUTIONAL: Denies fever, chills, nightsweats or weight changes. HEENT: No reports of headache, nasal drainage or sore throat. CARDIOVASCULAR: He does complain of left-sided chest pain. Denies any irregular rhythm. He denies any orthopnea. He did say that he had some lower extremity swelling a few days prior but no current lower extremity swelling. RESPIRATORY: Lungs - no complaints of shortness of breath. He does complain of cough and congestion. He is a daily smoker. GASTROINTESTINAL: He does have chronic pancreatitis and does have some chronic abdominal discomfort. Denies any nausea, vomiting, diarrhea, constipation or blood in the stools. GENITOURINARY: No reports of dysuria, hematuria, nocturia or urinary incontinence. MUSCULOSKELETAL: No reports of any unusual muscle pain, joint redness or swelling. Denies any arthralgias. NEUROLOGIC: No reports of syncopal episodes or any neurological deficits. No lateral weaknesses. Cranial nerves 2-12 grossly intact. SKIN: Skin is warm and dry. No overt rashes, lesions or any wounds. LABS AND DIAGNOSTIC TESTING: No recent labs and diagnostic testing available for review. Again, he did have recent cardiac cath that was done August 01, 2018 that did show mild nonobstructive coronary artery disease and that was done at [facility] in [place], [place] and this will be placed on the chart. PHYSICAL EXAMINATION: VITAL SIGNS: Temperature 97.6, BP 138/95, respiratory rate 20, 02 sat 98 on room air. HEAD: Normocephalic, atraumatic. EYES: Pupils equal/reactive to light. Conjunctivae not pale. Sclerae not icteric. MOUTH: No dentures. THROAT: No inflammation, tumors or exudate. NECK: No masses. No bruit. No tenderness. No rigidity. CHEST: Lungs have diminished breath sounds throughout, symmetrical. No tenderness. HEART: Audible and regular with good tones. No murmurs. ABDOMEN: Bowel sounds positive. Soft, nontender. No bruits. No masses. EXTERNAL GENITALIA: Not done. LOWER EXTREMITIES: No lower extremity edema. ASSESSMENT: 1. LEFT-SIDED CHEST PAIN, RULE OUT UNSTABLE ANGINA. 2. COUGH AND CONGESTION. 3. CHRONIC ABDOMINAL PAIN WITH HISTORY OF CHRONIC PANCREATITIS. 4. FATIGUE. 5. HISTORY OF DVT ON CHRONIC ANTICOAGULATION THERAPY. 6. ETOH DEPENDENT. 7. HYPERTENSION. 8. HYPERLIPIDEMIA. PLAN: Admit the patient to observation and will check labs cardiac markers and STAT EKG as well as pancreatic enzymes and chest x-ray. Will start the patient on IV fluids. Will plan to initiate a cardiology referral. Further orders and recommendation\ons per Dr. Anne. TIME SPENT: GREATER THAN 65 MINUTES MTDD
[2018-10-01] MEDS: COUMADIN PO SCH (17:40)
[2018-10-01] MEDS: PRAVACHOL PO SCH (21:39)
[2018-10-02] MEDS: PRILOSEC PO SCH (05:59)
[2018-10-02] MEDS: INFUVITE ADULT 10 ML in D5%-1/2NS-KCL 20 MEQ/L IV SOL 1,000 ML IV SCH ×2 (06:00→08:36)
[2018-10-02] MEDS: COZAAR PO SCH (08:02)
[2018-10-02] MEDS: NORVASC PO SCH (08:02)
[2018-10-02] MEDS: CREON DR 12,000 UNITS CAPSULE PO SCH ×2 (08:03→11:53)
[2018-10-02] MEDS ORDERED: INFUVITE ADULT IV ONE (08:30)
[2018-10-02] MEDS: DECADRON 4 MG/ML SDV IVP STA ×2 (08:35→08:51)
--- NOTE | 2018-10-02 08:40 | PCM.CONS ---
CONSULTING PROVIDER: Dr. SARAN MEI ATTENDING PROVIDER: Dr. CARLOZ [facility] DATE OF SERVICE: 10/02/18 SUBJECTIVE: This 63 year old BLACK/ M was hospitalized 09/30/18 with chest pain which is pleuritic and acute bronchitis. The patient is a heavy smoker. Epigastic pain maybe related to peptic ulcer disease or reflux. REVIEW OF SYSTEMS: CONSTITUTIONAL: No night sweats. No fatigue, malaise, lethargy. No fever or chills. HEENT: Eyes: No visual changes. No eye pain. No eye discharge. ENT: No runny nose. No epistaxis. No sinus pain. No odynophagia. No congestion. RESPIRATORY: Cough, Congestion. No hemoptysis. No shortness of breath. CARDIOVASCULAR: No angina symptoms. No CHF symptoms. Chest pain is more like pleuritic. No palpitations. No orthopnea. GASTROINTESTINAL: No abdominal pain. No nausea or vomiting. No diarrhea or constipation. No hematemesis. No hematochezia. GENITOURINARY: No urgency. No frequency. No dysuria. No hematuria. No obstructive symptoms. No discharge. No pain. No significant abnormal bleeding. MUSCULOSKELETAL: No musculoskeletal pain; no joint swelling. NEUROLOGICAL: Awake, alert, oriented to time, place and person. No headache. No neck pain. No syncope. No seizures. No dizziness. PSYCHIATRIC: Not anxious. No depression. No suicidal thoughts. No homicidal thoughts. SKIN: No rash. No lesions. No wounds. ENDOCRINE: No unexplained weight loss. No weight gain. HEMATOLOGIC/LYMPHATIC: No anemia. No purpura. No petechiae. No prolonged or excessive bleeding. No palpable lymph nodes. PHYSICAL EXAMINATION: GENERAL: The patient is awake, alert and oriented, sitting in bed in no distress. VITAL SIGNS: Temperature 98.2 F, Pulse 81, Respiratory Rate 18, BP 124/80, Pulse Ox 94% HEENT: Head normocephalic, atraumatic. Eyes: Extraocular muscles are intact. Pupils are equal, round and reactive to light and accommodation. Ears: No lesions. Nose appeared normal. Throat: No exudate or erythema. NECK: Supple. No JVD, no carotid bruit. No lymphadenopathy or thyromegaly. LUNGS: Mild harsh breath sounds bilaterally. Good air entry. Clear to auscultation. Percussion note normal. Chest symmetrical. HEART: S1, S2, no S3. No murmurs. No cyanosis or clubbing. No ascites. Pulses: Dorsalis pedis and posterior tibial pulses +1 to +2 both sides. ABDOMEN: Soft. Non-tender. Bowel sounds active. No CVA tenderness. No mass felt. EXTREMITIES: No edema. Full range of motion of all extremities, equal. NEUROLOGIC: No focal deficit. Cranial nerves II through XII are grossly intact. No headache, no double vision or headache. SKIN: Warm and dry. Intact. Turgor-normal. LYMPHATIC: No palpable lymph nodes/no lymphedema. MUSCULOSKELETAL: Normal joints with no swelling. Muscle tone is normal. LAB REVIEW: 10/02/18 05:02 10/02/18 05:02 10/02/18 05:02: Sodium 141.4, Potassium 4.23, Chloride 107.0, Carbon Dioxide 24.2, Anion Gap 14.43, BUN 21.3 H, Creatinine 0.77, Estimated GFR (MDRD) 124.00 , BUN/Creatinine Ratio 27.66, Glucose 134.5 H, Calcium 9.37, Total Bilirubin 0.29, AST 29.9, ALT 17.4, Alkaline Phosphatase 74.5, Total Protein 7.44, Albumin 4.18, Globulin 3.26, Albumin/Globulin Ratio 1.28 10/02/18 05:02: PT 9.7, INR 0.97 10/02/18 05:02: WBC 5.19, RBC 3.93 L, Hgb 12.0 L, Hct 36.0 L, MCV 91.6, MCH 30.5 , MCHC 33.3, RDW Coeff of Kristine 17.6 H, Plt Count 182, Immature Gran % (Auto) 0.4 , Neut % (Auto) 54.5, Lymph % (Auto) 31.4, [place] % (Auto) 10.6 H, Eos % (Auto) 2.7, Baso % (Auto) 0.4, Immature Gran # (Auto) 0.0, Neut # (Auto) 2.8, Lymph # ( Auto) 1.6, [place] # (Auto) 0.6, Eos # (Auto) 0.1, Baso # (Auto) 0.0 10/01/18 15:20: Amylase 95.9 D, Lipase 278.9 ASSESSMENT: 1. Chest pain likely pleuritic with acute bronchitis 2. Cardiovascular status is stable. EKG unchanged, poor R wave progression, Non- occlusive Coronary artery disease. No symptoms of CHF. 3. Cardiac work up is negative Please see below. RECOMMENDATIONS/PLAN: Plan and coordination of the patient's care discussed in the presence of Endodontics Dentist and Nurse. SCRIBED BY: JOSE ESCAMILLA Manager Secondary scribed while in presence of service performed by Dr. SARAN MEI on 10/02/18 ([id number])
--- NOTE | 2018-10-02 13:19 | CONS ---
DATE OF CONSULTATION: 10/01/18 REASON FOR CONSULTATION: Chest pain. HISTORY OF PRESENT ILLNESS: 63-year-old black male was hospitalized with chest pain. His chest pain is more like pleuritic cough, congestion, duration of 6 weeks. He has been coughing up yellowish sputum. The patient denies any exertional chest discomfort. REVIEW OF SYSTEMS: CONSTITUTIONAL: No night sweats. No fatigue, malaise, lethargy. No fever or chills. HEENT: Eyes: No visual changes. No eye pain. No eye discharge. ENT: No sinus drainage. No epistaxis. No sinus pain. No sore throat. No odynophagia. No ear pain. No congestion. RESPIRATORY: Cough and congestion. No hemoptysis. No shortness of breath. CARDIOVASCULAR: No angina symptoms. No CHF symptoms. Pleuritic type of chest pain with shortness of breath. No palpitations. No orthopnea. GASTROINTESTINAL: No abdominal pain. No nausea or vomiting. No diarrhea or constipation. No hematemesis. No hematochezia. GENITOURINARY: No urgency. No frequency. No dysuria. No hematuria. No obstructive symptoms. No discharge. No pain. No significant abnormal bleeding. MUSCULOSKELETAL: No musculoskeletal pain. No joint swelling. NEUROLOGICAL: No headache. No neck pain. No syncope. No seizures. No dizziness. PSYCHIATRIC: Not anxious. No depression. No suicidal thoughts. No homicidal thoughts. SKIN: No rash. No lesions. No wounds. ENDOCRINE: No unexplained weight loss. No weight gain. HEMATOLOGIC/LYMPHATIC: No anemia. No purpura. No petechiae. No prolonged or excessive bleeding. No palpable lymph nodes. MEDICATIONS: Nitroglycerin Pravastatin Losartan Amlodipine Coumadin Omeprazole ALLERGIES: APIXABAN, PENICILLINS, MOXIFLOXACIN PAST MEDICAL HISTORY: Chronic lung disease with history of smoking Dyslipidemia Hypertension History of atrial fibrillation Gastroesophageal reflux disease SOCIAL/PERSONAL/FAMILY HISTORY: The patient is a smoker. He lives with his Kandy, who is present in the room. No alcohol abuse. No other drug use. The patient is able to do all activity of daily living. PHYSICAL EXAMINATION: GENERAL: The patient is oriented to time, place and person not in distress. VITAL SIGNS: Temperature 98.6, pulse 70, respiratory rate 15, blood pressure 130 /70. HEENT: Head normocephalic, atraumatic. Eyes: Extraocular muscles are intact. Pupils are equal, round and reactive to light and accommodation. Ears: No lesions. Nose appeared normal. Throat: No exudate or erythema. NECK: Supple. No JVD, no carotid bruit. No lymphadenopathy or thyromegaly. LUNGS: Decreased breath sounds but clear with mild expiratory wheeze. Percussion note normal. Chest symmetrical. HEART: S1, S2, no S3. No murmurs. No cyanosis or clubbing. No ascites. Pulses: Dorsalis pedis and posterior tibial pulses +1 bilaterally. ABDOMEN: Soft. Nontender. Bowel sounds active. No CVA tenderness. No mass felt. EXTREMITIES: No edema. Full range of motion of all extremities, equal. NEUROLOGIC: No focal deficit. Cranial nerves II through XII are grossly intact. No headache, no double vision or headache. SKIN: Not dry. Intact. Turgor - normal. LYMPHATIC: No palpable lymph nodes/no lymphedema. MUSCULOSKELETAL: Normal joints with no swelling. Muscle tone is normal. The patient's EKG shows sinus rhythm, poor R wave progression. No acute changes , unchanged from before. Cardiac markers are negative. ASSESSMENT: 1. Acute bronchitis with pleuritic pain. 2. Chest pain likely pleuritic. Negative cardiac markers and EKG. 3. Severe chronic lung disease with history of smoking. 4. Hypertension. 5. Dyslipidemia. RECOMMENDATIONS: 1. Agree with present management with antibiotics. 2. Steroid could be added. 3. Counseling for smoking done. The patient had cardiac catheterization done after positive stress Sestamibi on August 01, 2018 which showed mild nonocclusive coronary artery disease, normal LV function, normal LVEDP. The patient's Dobutamine stress was negative but Sestamibi came back positive. I don't think the patient has any chest pain coming from coronary artery disease. The patient has pleuritic type of pain. Thanks for the referral, will follow. DAIJA
[2018-10-02 14:55] VITALS: BP 125/84; TEMP 98.1
--- NOTE | 2018-10-03 13:26 | CONS ---
TERRIE Marion was seen on consultation: 10/01/18 Level 5 10/02/18 Intermediate MTDD
--- NOTE | 2018-10-11 11:15 | DS ---
DATE OF SERVICE: 10/02/18 DISCHARGE DIAGNOSES: 1. Left-sided chest wall pain most likely pleuritic in nature. This is noncardiac chest pain. This was ruled out per Dr. Hurley while the patient was in the hospital. 2. Chronic abdominal pain with history of chronic pancreatitis. Pancreatic enzymes were stable. 3. History of DVT on chronic anticoagulation therapy. 4. ETOH dependence. 5. Hypertension. 6. Hyperlipidemia. 7. Recent heart catheterization in July of 2018 that showed mild nonobstructive coronary artery disease. This was done at [facility] in [place], [place]. No cardiac intervention was completed at that time. VITAL SIGNS AT DISCHARGE: Temperature 98.1, pulse rate 87, blood pressure 125/84. His respiratory rate 16 , 02 sat 97% on room air. He was in normal sinus rhythm at a rate of 88 at discharge on the monitor. BRIEF HISTORY OF PRESENT ILLNESS AND HOSPITAL COURSE: Mr. Samano is a pleasant 61-year-old patient of Dr. Anne who presented to the office on the day of admission with complaints of non productive cough and some chest congestion. He also had some left-sided chest wall pain. He had stated that it started a few days ago that had progressively gotten worse. It is definitely worse with exertion. He says he always has pain to the left upper extremity. He denied any complaints of shortness of breath. He denied any nausea or emesis. He denied any syncopal episode. He was not in any acute distress. He reports that the chest pain was a stabbing pain to the left chest wall. He does report that the pain does get worse when he takes a deep breath. He did have a recent heart catheterization done in [place] in July. It did show mild non obstructive coronary artery disease and some normal left ventricular systolic function, possible cardiomegaly and pericardial effusion. Normal left ventricular end diastolic pressure and no gradient across the aortic valve with recommendations for optimal medical management. He does have a history of chronic pancreatitis and ETOH dependent. He did admit to Dr. Anne that he did drink on his birthday of September 28, 2017. He drank some beer. His amylase is 127.6 on admission and lipase 230.7. Dr. Hurley did examine the patient and did review his heart cath and Dr. Anne did say that Dr. Hurley felt that everything was okay. On discharge his heart was regular rate and rhythm. Lungs were clear. He had no complaints of chest pain at discharge. He was ready to go home. We felt that this was probably a noncardiac, possibly pleuritic chest pain. Cardiac markers were negative. These were monitored during the hospitalization. Total creatinine kinase normal at 120.6 and 89.7 and CK-MB negative on two occasions and troponin negative on two occasions as well. He will have an appointment next week to see us in the office. DISCHARGE MEDICATIONS: He will continue current medications. DISCHARGE DIET: No alcohol for sure. This has been instructed to the patient and he is agreeable to this. A heart healthy diet is instructed as well as bland diet. DISCHARGE ACTIVITY LEVEL: His activity is as tolerated. FOLLOWUP APPOINTMENT: Next week and will discuss labs and diagnostic testing at that appointment. He will call if any concerns or problems prior to that appointment. TIME SPENT: GREATER THAN 30 MINUTES MTDD
== END 2018-10-02 15:25 | disposition home or self-care (01) ==
LOC: MEDSURG B 15:45
PROVIDERS: ADMIT General Practice; ATTEND General Practice
DX: R07.89 Other chest pain (principal); R05 Cough; R10.9 Unspecified abdominal pain; R53.83 Other fatigue; Z86.718 Personal history of other venous thrombosis and embolism; Z79.01 Long term (current) use of anticoagulants; F10.20 Alcohol dependence, uncomplicated; I10 Essential (primary) hypertension; E78.5 Hyperlipidemia, unspecified
CPT/HCPCS: 36415; 80053; 81001; 82150; 82550; 82553; 83690; 84484; 85025; 85610; 85730; 93005; 93010; 96361; 96374; 97802

== ENCOUNTER 2018-10-18 09:23 | Outpatient (CLI) | END 2018-10-18 09:24 | disposition home or self-care (01) | LOC: RHC-LAB 09:23 | PROVIDERS: ATTEND General Practice | DX: Z51.81 Encounter for therapeutic drug level monitoring (principal); Z79.01 Long term (current) use of anticoagulants; I82.532 Chronic embolism and thrombosis of left popliteal vein; I27.82 Chronic pulmonary embolism; I82.A2 Chronic embolism and thrombosis of axillary vein | CPT/HCPCS: 36415; 80053; 82150; 82550; 82553; 83690; 85610 ==

== ENCOUNTER 2018-10-25 09:36 | Outpatient (CLI) | END 2018-10-25 09:37 | disposition home or self-care (01) | LOC: RHC-LAB 09:36 | PROVIDERS: ATTEND General Practice | DX: Z51.81 Encounter for therapeutic drug level monitoring (principal); Z79.01 Long term (current) use of anticoagulants | CPT/HCPCS: 36415; 85610 ==

== ENCOUNTER 2018-11-01 08:21 | Outpatient (CLI) | END 2018-11-01 08:22 | disposition home or self-care (01) | LOC: RHC-LAB 08:21 | PROVIDERS: ATTEND General Practice | DX: Z51.81 Encounter for therapeutic drug level monitoring (principal); Z79.01 Long term (current) use of anticoagulants | CPT/HCPCS: 36415; 85610 ==